=== PATIENT | male | born 1955 | race Caucasian/White ===

== ENCOUNTER → 2016-08-07 | Outpatient (CLI) | payer OTHER ==
[2016-02-06 14:02] VITALS: BP 115/69; PULSE 79
[~2016-08-07] MED LIST: ACET325T96 PO; AMOX500C3 PO; ASPI325T39 PO; CARV12.52 PO; CMP/10 PO; CRG125 PO; CYAN10002 INJ; DOXY100C76 PO; DXM/4 PO; DXM4 PO; DXY100 PO; FLV400 PO; FOLI1TAB7 PO; FOLI800T17 PO; Folic Acid PO; IPRA1AER2 INH; KPP250 PO; LCTX PO; LISI-461 PO; LSN5 PO; MAGN400T6 PO; NICO14DI5 TD; NICO14DI9 TOP; PRLSR20 PO; PROC1TAB5 PO; SIMV-151 PO; SIMV20TA2 PO; SOTA80TA PO; SPRIN/30 INH; TIOTCAP INH; ULT50 PO
[2016-08-07 13:13] VITALS: BP 105/68; PULSE 84; TEMP 37; O2SAT 95
--- NOTE | 2016-08-07 16:04 | Radiation Oncology Follow-Up ---
Radiation Oncology Follow-Up Date of Visit Aug 07, 2016. (Marleen Archuleta PA-C) Reason For Visit 6 month follow-up (Marleen Archuleta PA-C) Radiation Completion Date 01/08/16 (Marleen Archuleta PA-C) Diagnosis (1) Lung cancer Onset Date: 11/07/2015 Histology Subtype: adenocarcinoma Stage: lll Permanent Comment: DIAGNOSIS: Lung, RUL, adenocarcinoma, T3N3Mx, stage IIIB Status post combined radiation and chemotherapy. Radiation completed 01/08/2016. Received 4000 cGy. Last Edited By: Marleen Archuleta on Jan 21, 2016 13:19 (Marleen Archuleta PA-C) History of Present Illness Mr. Arreaga is a 61-year-old gentleman who presents with a six-month history of a 20 pound weight loss and hemoptysis. He eventually went to his primary care physician who ordered a a chest x-ray followed by a CT thorax which was completed on 10/08/2015. The CT thorax revealed a 8.9 cm mass in the right upper lobe that was cavitary. Additionally, a nodule in the left lower lobe is also noted as well as a nodule in the right upper lobe. In the mediastinum, there are subcarinal lymph nodes measuring 3.7 cm in the greatest dimension which included prevascular lymph nodes, precarinal lymph nodes and right hilar and mediastinal lymph nodes in general. The patient was subsequently referred to pulmonary and he was seen by Dr. Gume Peck. The patient was taken for an endobronchial ultrasound-guided biopsy and he did have biopsies of stations 4L and 4R which revealed adenocarcinoma that was EGFR mutation negative. He subsequently had a PET/CT scan on 11/14/2015 which revealed a large right upper lobe mass with FDG avidity as well as metabolically active supraclavicular and mediastinal lymph nodes. There is no other areas of significant uptake. He was seen by Dr. Rubén Mike for further workup and evaluation. Dr. Mike recommended completion of the staging workup and also had a discussion regarding the role of chemotherapy and potentially radiation therapy. The patient then had a CT of the head with and without contrast on 11/21/2015 which showed no evidence of metastatic disease. The patient is going to have a CT of the liver completed tomorrow. We are now seeing the patient in consultation discuss the role of radiation therapy. Currently, the patient is doing okay. He continues to have some exertional dyspnea. He also continues to have minimal hemoptysis. He denies any fevers, chills or night sweats. He has a very poor appetite overall. He has a general lack of energy. He denies any headaches or any focal neurologic deficits. Decision was to treat with combined radiation and chemotherapy. Radiation was completed 01/08/2016 received 4000 cGy (Marleen Archuleta PA-C) Interim History He feels that he is stable in regards to his respiratory status. He has had no problems with increasing shortness of breath. He feels his cough is unchanged. He is trying to do exercises randomly with incentive spirometry. He denies any discomfort of the chest. He has had no problems with swallowing. He's been followed closely by Dr. Mike. He has had recheck scanning. He had a PET scan 05/15/2016. This showed overall significant response to therapy with decrease in size, number, size and metabolic activity of supraclavicular and mediastinal lymph nodes as well as of the primary right upper lobe mass. No new sites of FDG avid disease. Small patchy opacity in the left upper lobe is favorable to be inflammatory. Attention on follow-up. (Marleen Archuleta PA-C) Allergies Coded Allergies: Ibuprofen (Verified Allergy, Unknown, ITCHING - BUT TAKES ASA WITHOUT PROBLEM, 12/03/15) Home Medications Scheduled Aspirin (Aspirin Ec), 325 MG PO QAM Carvedilol (Coreg *), 12.5 MG PO BID Lisinopril (Zestril), 5 MG PO QAM Simvastatin (Zocor), 20 MG PO QAM Sotalol Hcl (Sotalol Hcl), 1 TAB PO BID Tiotropium [place] (Spiriva Handihaler), 1 CAP INH QAM [Folic Acid], 400 MCG PO DAILY Scheduled PRN Prochlorperazine Maleate (Compazine), 1 TAB PO Q6 PRN for Nausea Review of Systems Gastrointestinal: Symptoms: WNL Oral: Symptoms: No Problems Respiratory: Symptoms: SOB With Exertion, Productive Cough Respiratory Comments: SOB/ Moist productive cough of thick white phlegm Sputum Character: White phlegm; Urinary: Symptoms: Nocturia, Frequency Comments: Doesn't feel he always empties bladder;Starts/stops during void; Skin: Symptoms: No Problems Other Skin Symptoms: Reports dry flaky skin at tx site (Marleen Archuleta PA-C) Physical Exam Vital Signs Date Time Temp Pulse Resp B/P Pulse Ox O2 Delivery O2 Flow Rate FiO2 08/07/16 13:13 37.0 84 20 105/68 95 Pain: Patient Pain Scale: 0 - 10 Initial Pain Intensity: 0.0 Fatigue: None General Appearance: + thin Eyes: normal inspection, EOMI ENT: normal ENT inspection, hearing grossly normal Neck: no adenopathy Respiratory/Chest: no respiratory distress, no accessory muscle use, + decreased breath sounds, + pertinent finding (transtracheal congestion) Cardiovascular: regular rate, rhythm, no gallop, no murmur Neurologic/Psychiatric: no motor/sensory deficits, alert, normal mood/affect Skin: warm/dry Lymphatic: no adenopathy (Marleen Archuleta PA-C) Additional Studies PET scan as reviewed above. (Marleen Archuleta PA-C) Assessment & Plan Plan: Patient was seen and examined by Dr. Donaldson. He'll continue her follows Dr. Mike. He is scheduled for recheck PET scan 08/20/2016. He has a recheck appointment with Dr. Mike on 08/22/2016. We asked him to return to our office in 1 year. He may call if he has any questions or concerns in the interim. (Marleen Archuleta PA-C) I agree with note created by Marleen Archuleta PA-C. I reviewed the patient's chart and information with her. I have examined and evaluated the patient. I reviewed relevant clinical information and answered the patient's and/or family' s questions. (Veeral. Donaldson MD) Total Time In Follow-Up I spent 20 minutes speaking to the patient and performing examination. I spent 15 minutes reviewing information on completing this note. (Marleen Archuleta PA-C) I spent 15 minutes examining and counseling the patient. (Veeral. Donaldson MD) Copy To Alexander Aguilera M.D.; Rubén Mike MD; Rayray Lea M.D. Problem Qualifiers (1) Lung cancer: Laterality: right Lung location: upper lobe of lung Qualified Codes: C34.11 - Malignant neoplasm of upper lobe, right bronchus or lung
== END | disposition home or self-care (01) ==
LOC: C.ONC 13:08
PROVIDERS: ATTEND Physician Assistant Medical
DX: Z08 Encounter for follow-up examination after completed treatment for malignant neoplasm (principal); Z92.3 Personal history of irradiation; Z85.118 Personal history of other malignant neoplasm of bronchus and lung

== ENCOUNTER → 2016-10-31 | Outpatient (CLI) | payer OTHER ==
[~2016-10-31] MED LIST changes: -AMOX500C3 PO; -ASPI325T39 PO; -CYAN10002 INJ; -FOLI1TAB7 PO; -TIOTCAP INH
[2016-10-31 10:07] VITALS: BP 87/57; PULSE 76; TEMP 36.7; O2SAT 95
--- NOTE | 2016-10-31 10:59 | Radiation Oncology Follow-Up ---
Radiation Oncology Follow-Up Date of Visit Oct 31, 2016. Reason For Visit One-month follow-up Radiation Completion Date finished to lung 01-08-2016 and SBRT to brain 10-04-2015 Diagnosis (1) Lung cancer Status: Chronic Onset Date: 11/07/2015 Location: brain metastasis Histology Subtype: adenocarcinoma Stage: IV Permanent Comment: DIAGNOSIS: Lung, RUL, adenocarcinoma, T3N3Mx, stage IIIB -Status post combined radiation and chemotherapy (carboplatin/alimta). -Radiation completed 01/08/2016. Received 4000 cGy. -4 cycles of adjuvant/maintenance Alimta (Dr. Mike) -PET/CT - 08/20/2016 - shows progression of disease -Restarted on Alimta -CT Head - 09/01/2016 - Right cerebellum solitary brain metastasis Status post completion of stereotactic radiation therapy 10/04/2015. He received 3000 cGy in 5 fractions Last Edited By: Marleen Archuleta on Oct 13, 2016 18:55 History of Present Illness Mr. Arreaga is a 61-year-old gentleman previously treated with chemotherapy and radiation therapy for stage IIIB nonsmall cell lung carcinoma of the right upper lobe. The patient has received 4 cycles of maintenance Alimta underneath the supervision of Dr. Rubén Mike. The patient had a PET/CT scan on 08/20/2016 which revealed interval enlargement of the left supraclavicular metastatic lymphadenopathy with increasing FDG avidity, new multiloculated left pleural effusion concerning for malignant effusion, decreased uptake in the left cerebellum concerning for potential malignancy. The patient was restarted on Alimta underneath the supervision of Dr. Rubén Mike. The patient did have a CT of the head with and without contrast on 2016 which revealed a 3 cm rim-enhancing low-density mass within the right anterolateral cerebellum with surrounding vasogenic edema consistent with metastatic disease. We have been asked to evaluate the patient for consideration of radiation therapy to the brain. In general, the patient states his only significant symptom is headaches in the left posterior head. He denies any significant focal neurologic deficits. He has no history of seizures. He has no other complaints. Interim History He denies any difficulty with headaches over this past month. He has had some generalized hair loss. No difficulty with ambulation. Occasionally feels mildly off balance. No change in vision. He's been followed closely by Dr. Mike. He is to have a bone marrow evaluation this morning. He is scheduled for CAT scans this afternoon. He had been on dexamethasone. This was tapered and completed. He is generalized pain of the neck and shoulders. He takes Tylenol twice a day. Allergies Coded Allergies: Ibuprofen (Verified Allergy, Unknown, ITCHING - BUT TAKES ASA WITHOUT PROBLEM, 12/03/15) Home Medications Scheduled Acetaminophen Tab (Tylenol), 325 MG PO BID Carvedilol (Coreg *), 12.5 MG PO BID Lisinopril (Zestril), 5 MG PO QAM Magnesium Oxide (Mag-Ox), 400 MG PO DAILY Simvastatin (Zocor), 20 MG PO QAM Sotalol Hcl (Sotalol Hcl), 1 TAB PO BID [Folic Acid], 800 MCG PO DAILY Review of Systems Gastrointestinal: Symptoms: Constipation GI Comments: has a BM every 1-2 days Oral: Symptoms: No Problems Respiratory: Symptoms: SOB At Rest, Moist Cough, SOB With Exertion, Productive Cough Sputum Character: white phlegm Other Respiratory: "it is hard to breathe when laying down " Urinary: Symptoms: Nocturia Comments: nocturia every 0.5 to 1 hr , denies pain or burning Skin: Symptoms: No Problems Additional Notes: He completed a distress management report and answered "no" to all questions other than he has concerns about insurance and money. He also is worried about his diagnosis. He has concerns about breathing, pain, and sleep. Physical Exam Vital Signs Date Time Temp Pulse Resp B/P (MAP) Pulse Ox O2 Delivery O2 Flow Rate FiO2 10/31/16 10:07 36.7 76 20 87/57 95 Pain: Pain Onset: 1 month ago Pain Duration: never goes away completely , Side: Bilateral Patient Pain Scale: 0 - 10 Initial Pain Intensity: 7.0 Pain Description: Dull, Aching Additional Comments: gets worse at times, usually stays at a 7 0-10 scale Fatigue: Moderate General Appearance: no apparent distress Eyes: normal inspection, PERRL, EOMI ENT: normal ENT inspection, hearing grossly normal Neck: no adenopathy, thyroid normal Respiratory/Chest: lungs clear, no respiratory distress, no accessory muscle use, + decreased breath sounds Cardiovascular: regular rate, rhythm, no gallop, no murmur Extremities: no pedal edema Neurologic/Psychiatric: no motor/sensory deficits, alert, normal mood/affect Skin: warm/dry Assessment & Plan Plan: We will await the results of his CAT scans to be performed this afternoon. Chemotherapy has currently been on hold due to low platelets. He' ll need a follow-up MRI of the brain in 2 months. We will schedule that and asked for specific protocol using thin axial cuts post contrast. We will see him following the recheck MRI. He may call our office if he has any questions or concerns. We'll defer any pain medication to Dr. Mike in regards to the discomfort of his neck and shoulders. Total Time In Follow-Up I spent 20 minutes speaking to the patient and perform examination. I spent 15 minutes reviewing information and completeness note. Copy To Alexander Aguilera M.D.; Rubén Mike MD; Rayray Lea M.D.
== END | disposition home or self-care (01) ==
LOC: C.ONC 09:51
PROVIDERS: ATTEND Physician Assistant Medical
DX: Z08 Encounter for follow-up examination after completed treatment for malignant neoplasm (principal); Z92.3 Personal history of irradiation; Z85.118 Personal history of other malignant neoplasm of bronchus and lung

== ENCOUNTER 2016-11-10 10:11 | Emergency (ER) | payer OTHER ==
[~2016-11-10] VITALS: Ht 168.9 cm; Wt 50.0 kg
[~2016-11-10 10:11] MED LIST changes: -CARV12.52 PO; -CMP/10 PO; -DOXY100C76 PO; -DXM/4 PO; -DXM4 PO; -DXY100 PO; -FLV400 PO; -FOLI800T17 PO; -IPRA1AER2 INH; -KPP250 PO; -LCTX PO; -LSN5 PO; -MAGN400T6 PO; -NICO14DI5 TD; -NICO14DI9 TOP; -PRLSR20 PO; -PROC1TAB5 PO; -SIMV-151 PO; -SOTA80TA PO; -SPRIN/30 INH; -ULT50 PO
[2016-11-10 10:16] VITALS: TEMP 36.7; Ht 168.9 cm; Wt 50.0 kg
[2016-11-10] MEDS ORDERED: CARV12.52 PO (10:59)
[2016-11-10] MEDS ORDERED: ONDANSETRON INJ 2 MG/ML 2 ML VIAL IV STA (11:05)
[2016-11-10] MEDS ORDERED: HYDROmorphone INJ 1 MG/ML SYR IV STA (11:05)
[2016-11-10] MEDS ORDERED: SODIUM CHLORIDE 0.9% 500ML 500 ML IV STA (11:05)
[2016-11-10] MEDS ORDERED: OPTIRAY 320 IV PRN (11:15)
--- NOTE | 2016-11-10 11:33 | EMERGENCY ROOM VISIT NOTE ---
History Report prepared by Norberto: Preethi Knox Under the Supervision of: Dr. Navi Beth M.D. First contact with patient: 10:55 Chief Complaint: SHORTNESS OF BREATH Stated Complaint: SOB,WEAKNESS,NAUSEA,BACK PAIN Nursing Triage Summary: Pt states, "I can't stand up. I can't keep my balance. I can't even get a shower. I can't get my breath when I lay down." Pt reports shoulder, head, stomach and back pain. Pt has cancer, unsure what kind. Pt states, "I don't know what kind. They haven't really explained it to me. They did 3 or 4 scans. They took some bone marrow out of my hip on Thursday. That's when this all started." History of Present Illness The patient is a 61 year old male who presents to the Emergency Room with complaints of worsening shortness of breath for the past three days. His shortness of breath is worsened with lying flat and he states that he feels unable to breathe when lying flat. He is also complaining of abdominal pain, back pain, headache, and generalized weakness. He rates his pain as a 7/10 in severity. The patient has a history of lung cancer diagnosed one year ago. He had some further testing done three days ago including a bone marrow biopsy. He states that he has been told that he is going to start chemotherapy but must first follow-up with a neurosurgeon in [place]. The patient denies any vomiting. Source of History: patient Onset: 3 days ago Position: chest (respiratory) Symptom Intensity: 7/10 Quality: other (shortness of breath) Timing: worsening Modifying Factors (Worsening): other (lying flat) Associated Symptoms: + headache, + abdominal pain, + back pain, + weakness, No vomiting Review of Systems See HPI for pertinent positives & negatives. A total of 10 systems reviewed and were otherwise negative. Past Medical & Surgical Medical Problems: (1) DVT (deep venous thrombosis) (2) Lung cancer (3) Pacemaker Family History FH: CAD (coronary artery disease) MOTHER FH: cancer FATHER (type unknown) Social History Smoking Status: Current Every Day Smoker Occupation Status: disabled Current/Historical Medications Scheduled Acetaminophen Tab (Tylenol), 325 MG PO BID Carvedilol (Coreg), 12.5 MG PO BID Folic Acid (Folic Acid), 800 MCG PO DAILY Lisinopril (Zestril), 5 MG PO QAM Magnesium Oxide (Mag-Ox), 400 MG PO DAILY Simvastatin (Zocor), 20 MG PO QAM Sotalol Hcl (Sotalol Hcl), 1 TAB PO BID Allergies Coded Allergies: Ibuprofen (Verified Allergy, Unknown, ITCHING - BUT TAKES ASA WITHOUT PROBLEM, 11/10/16) Physical Exam Vital Signs Date Time Temp Pulse Resp B/P (MAP) Pulse Ox O2 Delivery O2 Flow Rate FiO2 11/10/16 15:00 90 20 113/66 96 Room Air 11/10/16 14:32 84 16 100/64 96 Nasal Cannula 2.0 11/10/16 13:52 82 18 100/56 99 Nasal Cannula 2.0 11/10/16 13:23 82 11/10/16 12:29 93 18 119/67 99 Nasal Cannula 2.0 11/10/16 11:51 92 18 112/79 95 Nasal Cannula 2.0 11/10/16 11:43 100 Nasal Cannula 2.0 11/10/16 11:19 84 16 122/65 96 Room Air 11/10/16 10:31 88 11/10/16 10:31 96 Room Air 11/10/16 10:31 96 Room Air 11/10/16 10:19 98 Room Air 11/10/16 10:16 36.7 89 16 107/74 98 Room Air Physical Exam GENERAL: Patient is a cachetic-appearing 61 year old male. HEAD: Normocephalic atraumatic EYES: Ocular movements intact pupils equal and react to light OROPHARYNX mucous membranes are moist no exudates present no erythema or edema present NECK: Supple no nuchal rigidity CHEST: Good equal expansion. Caput medusae on chest wall. LUNGS: Clear and equal to auscultation CARDIAC: Normal S1 and S2 ABDOMEN: Soft nontender no guarding BACK: No CVA tenderness EXTREMITIES: No pain upon palpation normal muscle strength in all groups no clubbing cyanosis or edema NEURO: Patient is following commands and answering questions appropriately. Alert and oriented x3 Cranial Nerves 2-12 grossly intact Medical Decision & Procedures ER Provider Diagnostic Interpretation: Radiology results as stated below per my review and radiologist interpretation: HEAD WITHOUT CONTRAST (CT) CLINICAL HISTORY: 61 years-old Male with Pt c/o Cancer Mets. Pain, nausea and weakness with history of lung cancer. TECHNIQUE: Multiple axial CT images of the head were obtained without contrast. A dose lowering technique was utilized adhering to the principles of ALARA. CT DOSE: 1051.39 mGy.cm COMPARISON: CT head 10/31/2016 and 09/01/2016. FINDINGS: Focus of low attenuation measuring 8 mm within the subcortical white matter of the left frontal lobe is again seen correlate with vasogenic edema associated with ring enhancing mass as seen on 10/31/2016, not significantly changed. Large area of decreased attenuation of the right cerebral hemisphere is seen, 3.4 x 2.5 cm correlating with vasogenic edema associated with ring-enhancing mass seen on comparison head CT. This also is not significantly changed. Evaluation for new or enlarging metastasis is limited without the use of IV contrast. There is no acute intracranial hemorrhage, midline shift, hydrocephalus or abnormal extra-axial collections. Senescent calcifications of the basal ganglia are again seen. There is mild background central atrophy. Patchy areas of decreased attenuation within the periventricular white matter suggest background of chronic microvascular ischemic changes, not significantly changed. Calvarium is intact. Mastoid air cells and middle ear cavities are clear. Soft tissues are unremarkable. The orbits are symmetric. There are postsurgical changes of the left calvarium. IMPRESSION: 1. No acute intracranial hemorrhage, midline shift or territorial ischemia. 2. Limited evaluation for metastatic disease without the use of IV contrast. Within the limitations of the study, focal areas of vasogenic edema notably within the subcortical left frontal lobe and right cerebellar hemisphere correlating with areas of previously noted enhancing masses on study dated 10/31/2016 are not significantly changed. The above report was generated using voice recognition software. It may contain grammatical, syntax or spelling errors. Electronically signed by: Darnell Rivas M.D. 11/10/2016 12:36 PM Dictated Date/Time: 11/10/2016 12:31 PM (CHEST FOR PE) ANGIO WITH CLINICAL HISTORY: 61 years-old Male presenting with diffuse abdominal pain, shortness of breath, back pain, nausea, history of lung cancer. TECHNIQUE: Multidetector CT angiography of the chest was performed after administration of intravenous contrast. 3-D volumetric and maximum intensity projection (MIP) images were subsequently reconstructed for review. IV contrast: 93 mL of Optiray 320. A dose lowering technique was used consistent with the principles of ALARA (as low as reasonably achievable). COMPARISON: 10/08/2015. CT DOSE (mGy.cm): The estimated cumulative dose is 1051.39 inclusive of the head CT and abdomen and pelvis. FINDINGS: [employer] topogram: Left-sided implanted cardiac defibrillator noted with left pleural effusion left basilar opacity. Pulmonary vasculature: The study is adequate for assessment of the pulmonary vascular tree. No filling defect within the pulmonary arteries to suggest embolus. Main pulmonary artery not enlarged. No flattening of the interventricular septum. No intracardiac filling defect. Remaining chest: On soft tissue windows, normal thyroid and thoracic inlet. Multiple enlarged left axillary lymph nodes noted, the largest measuring 11 mm in the short axis (series 6 image 260). Few prominent mediastinal lymph nodes in the precarinal region. Hyperdensity in the subcarinal region may suggest partially calcified lymph nodes. Infiltration of the anterior mediastinal fat. Aortic atherosclerosis. Coronary artery calcification. Multichamber enlargement of the heart. Trace pericardial effusion. Moderate loculated left pleural effusion. Upper abdomen grossly normal. On lung windows, groundglass and solid consolidation with a basilar predominance in the left lung is new from prior. Focal pulmonary nodule in the left lower lobe measuring 1.8 cm (series 6 image 171). This is new from prior. Diffuse airway thickening in the left lung with likely mucoid impaction and several of the segmental left lower lobe bronchi. Peripheral reticular and solid consolidation in the lingula and to a greater extent in the anterior segment of the right upper lobe, which may represent post radiation change. In the region of prior centrally cavitating lung mass in the anterior right upper lobe, less extensive consolidation with bronchiectatic change noted lobe. However, an adjacent focal 10 mm nodule in the right upper lobe may be new from prior (series 6 image 200). Mild background emphysematous changes. Prominent apical bulla. Bronchial wall thickening within the right lung also noted. On bone windows, degenerative changes of the lower cervical and lower thoracic spine. Deformity of posterior left ribs may be postsurgical or posttraumatic. IMPRESSION: 1. Interval evolution of previously noted centrally cavitating anterior right upper lobe mass, which could be compatible with known lung cancer. Although this appears less extensive than prior exam possibly from interval radiation, evidence of an adjacent satellite nodule in the right upper lobe and additional left lower lobe nodule new from prior and concerning for metastatic disease. 2. Interval development of loculated moderate left pleural effusion, which raises concern for pleural spread of disease. 3. Diffuse airway thickening is new from prior and may represent bronchitis/bronchiolitis. Additionally, suspected mucoid impaction of several segmental bronchi in the left lower lobe. 4. Mediastinal and left axillary lymphadenopathy, which is concerning for metastatic disease. 5. Cardiomegaly. Electronically signed by: Larry Jimenez M.D. 11/10/2016 12:41 PM Dictated Date/Time: 11/10/2016 12:27 PM ABD/PELVIS IV CONTRAST ONLY CT DOSE: HISTORY: Pain Pt c/o diffuse abd pain TECHNIQUE: Multiaxial CT images of the abdomen and pelvis were performed following the use of intravenous contrast. A dose lowering technique was utilized adhering to the principles of ALARA. COMPARISON STUDY: 11/23/2015 FINDINGS: Interval development of left basilar pleural effusion. Left basilar infiltrative change versus versus compressive atelectatic change left lower lobe is present. The right lung bases clear. There is a question of potential small filling defect of a third vessel of the left lower lobe versus flow artifact. The liver demonstrates several nodular foci involving the mid to lower aspect of the right hepatic lobe. These measure to 8 mm. Possibly of hepatic metastatic disease must be considered. The seen to a lesser extent involving the upper aspect right hepatic lobe as well as medial left hepatic lobe transaxial image 24. There is interval development of the triangular low density process evident maximum dimension of 1.5 cm posterior aspect of the mid right kidney. Considerations include possibly renal infarct versus cystic lesion. There is a slight degree of perinephric infiltrative change which is similar as compared to the prior study. Cortical scarring mid aspect left kidney is unchanged. Bowel pattern is considered nonobstructive. There is atherosclerotic change abdominal and pelvic arterial vasculature. Bladder is midline. The osseous structures show degenerative change throughout. A well-defined lytic or blastic process is not appreciated. Additional note is made of potential filling defect of the right femoral vein versus flow artifact. Venous Doppler is suggested with attention to the right inguinal region IMPRESSION: 1. Interval development of potentially septated and/or loculated left basilar effusion with compressive atelectasis of components of the left lower lobe. 2. Possible third order filling defect of a left lower lobe vessel with reference made to a CT angiogram of the chest same date. 3. Unchanging retrocrural node on the right measuring 1.5 cm. 4. Potential developing hepatic metastatic change. 5. Interval development of a somewhat triangular component posterior aspect mid right kidney which potentially represents focal renal infarct versus developing lesion. 6. Nonobstructive bowel pattern. 7. Incidental note is made of potential flow artifact versus developing right inguinal deep venous thrombosis. Venous Doppler is recommended to exclude this possibility. The above report was generated using voice recognition software. It may contain grammatical, syntax or spelling errors. Electronically signed by: Nickolas Monroe M.D. 11/10/2016 12:41 PM Dictated Date/Time: 11/10/2016 12:27 PM Laboratory Results 11/10/16 11:30 Red Blood Count 2.84, Mean Corpuscular Volume 101.8, Mean Corpuscular Hemoglobin 34.2, Mean Corpuscular Hemoglobin Concent 33.6, Neutrophils (%) (Auto ) 81.3, Lymphocytes (%) (Auto) 7.5, Monocytes (%) (Auto) 9.0, Eosinophils (%) ( Auto) 0.5, Basophils (%) (Auto) 0.1, Neutrophils # (Auto) 9.97, Lymphocytes # ( Auto) 0.92, Monocytes # (Auto) 1.10, Eosinophils # (Auto) 0.06, Basophils # ( Auto) 0.01 11/10/16 11:30 Test 11/10/16 11:30 11/10/16 11:41 White Blood Count 12.26 K/uL (4.8-10.8) Red Blood Count 2.84 M/uL (4.7-6.1) Hemoglobin 9.7 g/dL (14.0-18.0) Hematocrit 28.9 % (42-52) Mean Corpuscular Volume 101.8 fL (80-100) Mean Corpuscular Hemoglobin 34.2 pg (25-34) Mean Corpuscular Hemoglobin Concent 33.6 g/dl (32-36) Platelet Count 24 K/uL (130-400) Neutrophils (%) (Auto) 81.3 % Lymphocytes (%) (Auto) 7.5 % Monocytes (%) (Auto) 9.0 % Eosinophils (%) (Auto) 0.5 % Basophils (%) (Auto) 0.1 % Neutrophils # (Auto) 9.97 K/uL (1.4-6.5) Lymphocytes # (Auto) 0.92 K/uL (1.2-3.4) Monocytes # (Auto) 1.10 K/uL (0.11-0.59) Eosinophils # (Auto) 0.06 K/uL (0-0.5) Basophils # (Auto) 0.01 K/uL (0-0.2) RDW Standard Deviation 59.4 fL (36.4-46.3) RDW Coefficient of Variation 16.5 % (11.5-14.5) Immature Granulocyte % (Auto) 1.6 % Immature Granulocyte # (Auto) 0.20 K/uL (0.00-0.02) Nucleated RBC Absolute Count (auto) 0.02 K/uL (0-0) Nucleated Red Blood Cells % 0.1 % Platelet Estimate SIGNIFIC DECREASED Polychromasia 1+ Spherocytes OCCASIONAL Est Creatinine Clear Calc Drug Dose 108.2 ml/min Estimated GFR () 135.3 Estimated GFR (Non- 116.7 BUN/Creatinine Ratio 20.8 (10-20) Calcium Level 8.5 mg/dl (8.5-10.1) Total Bilirubin 0.9 mg/dl (0.2-1) Aspartate Amino Transf (AST/SGOT) 23 U/L (15-37) Alanine Aminotransferase (ALT/SGPT) 17 U/L (12-78) Alkaline Phosphatase 64 U/L (45-117) Total Creatine Kinase 26 U/L (39-308) Creatine Kinase MB 0.8 ng/ml (0.5-3.6) Creatine Kinase MB Ratio 3.1 (0-3.0) Troponin I 0.222 ng/ml (0-0.045) Total Protein 5.2 gm/dl (6.4-8.2) Albumin 2.4 gm/dl (3.4-5.0) Globulin 2.8 gm/dl (2.5-4.0) Albumin/Globulin Ratio 0.9 (0.9-2) Bedside Hemoglobin 8.8 g/dl (14.0-18.0) Bedside Hematocrit 26 % (42-52) Bedside Sodium 136 mEq/L (135-144) Bedside Potassium 3.1 mEq/L (3.3-5.0) Bedside Chloride 96 mEq/L (101-112) Bedside Total CO2 26 mEq/l (24-31) Anion Gap 18.0 mmol/L (16-25) Bedside Blood Urea Nitrogen 10 mg/dl (7-18) Bedside Creatinine 0.6 mg/dl (0.6-1.3) Bedside Glucose (other) 90 mg/dl (70-99) Bedside Ionized Calcium (Curt) 1.17 mmol/l (1.12-1.32) Labs reviewed by ED physician. Medications Administered Medications (Trade) Dose Ordered Sig/Claude Route Start Time Stop Time Status Last Admin Dose Admin Sodium Chloride 500 ml @ 999 mls/hr Q31M STAT IV 11/10/16 11:05 11/10/16 11:35 DC 11/10/16 11:05 999 MLS/HR Hydromorphone HCl (Dilaudid Inj) 1 mg NOW STAT IV 11/10/16 11:05 11/10/16 11:09 DC 11/10/16 11:50 1 MG Ondansetron HCl (Zofran Inj) 4 mg NOW STAT IV 11/10/16 11:05 11/10/16 11:09 DC 11/10/16 11:49 4 MG ECG Indication: SOB/dyspnea Rate (beats per minute): 87 Rhythm: sinus rhythm Findings: PVC, no acute ischemic change, prolonged QT ED Course 1055: Past medical records reviewed. The patient was evaluated in room A3. A complete history and physical examination was performed. 1105: Zofran 4 mg IV, Dilaudid 1 mg IV, NSS 500 ml @ 999 mls/hr IV 1328: I spoke with Marj Aguilar PA-C of endovascular surgery. Dr. Layton is out of town for the next couple of weeks and so she recommended speaking with the hospitalist. 1329: I spoke with ALIYAH Reyes. We discussed the patients case. [facility] 1335: I reassessed the patient at this time. I discussed the results and treatment plan with the patient. I answered all pertaining questions that he had. He expressed understanding and verbalized agreement. 1442: The patient is signing out AMA. Medical Decision Etiologies such as appendicitis, diverticulitis, PUD, biliary pathology, UTI, pancreatitis, obstruction, mesenteric ischemia, aortic pathology, infections, inflammatory bowel disease, renal colic, as well as others were entertained. This is a 61-year-old male who presents emergency Department with multiple complaints. The patient is complaining of chest and abdominal pain. 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 Due to the patient's multiple complaints use sent for CAT scan of the chest as well as the abdomen. The CAT scan the abdomen is concerning for renal infarction as well as a DVT. This was confirmed on ultrasound. The patient has a low platelet count along with metastatic disease to the head and based on this I am uncomfortable starting him on anticoagulation at this point. I do feel that the patient would benefit from an IVC filter however vascular surgery is not available this week at [facility]. [facility] felt that the patient will be better served in [place] due to his multiple comorbidities. I returned to talk to the patient about all of his findings however he is adamantly refusing to be transferred and wishes to be discharged home. I reiterated that the patient was at high risk for stroke as well as PEs as well as but he is going to sign out AGAINST MEDICAL ADVICE. I strongly recommended that the patient follow-up with his oncologist Dr. Mike. I also spoke with Dr. Mike at length about the patient and recommended close follow-up as well as transferred to [place]. The patient was aware of his multiple comorbidities at the time of discharge. The patient has demonstrated no significant defect in the decision-making capacity to make choices. The encounter had a good level of communication with language the patient can easily understand. I feel trust was present and conveyed that our action/intentions were the best interest of the patient. The patient was given all relevant information and reiterated the explained risks and benefits. The patient explained the reasoning for refusing treatment clearly. The patient possesses and expresses a set of values and goals, the ability to communicate and understand, and an ability to reason and deliberate. Despite acting emphatically, attentively and with the utmost patient's the patient declined further treatment. I offered options, negotiated, and explored every reasonable choice. I must respect the patient's autonomy and that they feel that their choices are best for them despite the associated risks of leaving without completing the evaluation. The patient was informed about the findings as listed above. All questions were answered and he was pleased with the treatment. Return instructions were outlined and the patient was discharged in stable condition. Medication Reconcilliation Current Medication List: was personally reviewed by me Blood Pressure Screening Patient's blood pressure: Low blood pressure Consults Time Called: 1325 Consulting Physician: Marj Aguilar PA-C Returned Call: 1328 I spoke with Marj Aguilar PA-C of endovascular surgery. Dr. Layton is out of town for the next couple of weeks and so she recommended speaking with the hospitalist. Additional Consults: Time Called: 1329 Consulted Physician: ALIYAH Reyes Returned Call: 1329 Additional Comments: I spoke with ALIYAH Reyes. We discussed the patients case. The patient will be evaluated by the [facility] for further management. Impression Primary Impression: Metastatic cancer Additional Impressions: Right leg DVT Thrombocytopenia Renal infarct Scribe Attestation The scribe's documentation has been prepared under my direction and personally reviewed by me in its entirety. I confirm that the note above accurately reflects all work, treatment, procedures, and medical decision making performed by me. Departure Information Dispostion Against Medical Advice Referrals Rayray Lea M.D. (PCP) Rubén Mike MD Forms HOME CARE DOCUMENTATION FORM, IMPORTANT VISIT INFORMATION Patient Instructions DVT, My [facility] Additional Instructions NEED FOLLOW UP WITH DR MIKE You received narcotic or benzodiazepene medication while in the emergency room today. Do not drive, operate heavy machinery, or drink alcohol under the influence of this medication. You have been examined and treated today on an emergency basis only. This is not a substitute for, or an effort to provide, complete comprehensive medical care. It is impossible to recognize and treat all injuries or illnesses in a single emergency department visit. It is therefore important that you follow up closely with Dr Lea. Call as soon as possible for an appointment. Thank you for your time and consideration. I look forward to speaking with you again soon. Please don't hesitate to call us if you have any questions. Problem Qualifiers Additional Impressions: Right leg DVT Affected thrombotic vein of extremity: unspecified vein of extremity Chronicity: unspecified Qualified Codes: I82.401 - Acute embolism and thrombosis of unspecified deep veins of right lower extremity
[2016-11-10 11:43] VITALS: O2SAT 100
[2016-11-10 11:53] LABS: ISTAT CREATININE 0.6 mg/dl (0.6-1.3); ISTAT HEMOGLOBIN 8.8 g/dl (14.0-18.0); ISTAT IONIZED CALCIUM 1.17 mmol/l (1.12-1.32)
[2016-11-10 12:13] LABS: BUN/CREATININE RATIO 20.8 (10-20); CALCIUM 8.5 mg/dl (8.5-10.1); CREATININE 0.52 mg/dl (0.60-1.40); POTASSIUM 3.1 mmol/L (3.5-5.1)
[2016-11-10 12:20] LABS: BASO % 0.1 %; BASO ABS # 0.01 K/uL (0-0.2); COMPLETE YES; EOS % 0.5 %; HEMATOCRIT 28.9 % (42-52); IG% 1.6 %; LYMPH % 7.5 %; LYMPH ABS # 0.92 K/uL (1.2-3.4); MEAN CELL VOLUME 101.8 fL (80-100); MEAN CORPUSCULAR HEMOGLOBIN 34.2 pg (25-34); MEAN CORPUSCULAR HGB CONC 33.6 g/dl (32-36); NEUT % 81.3 %; PLATELET COUNT 24 K/uL (130-400); PLT ESTIMATE SIGNIFIC DECREASED; POLYCHROMASIA 1+; RED BLOOD COUNT 2.84 M/uL (4.7-6.1); SPHEROCYTE OCCASIONAL; WHITE BLOOD COUNT 12.26 K/uL (4.8-10.8)
[2016-11-10 12:24] LABS: ALB/GLOB RATIO 0.9 (0.9-2); CKMB/CK RATIO 3.1 (0-3.0)
--- NOTE | 2016-11-10 12:38 | DIAGNOSTIC IMAGING REPORT ---
HEAD WITHOUT CONTRAST (CT) CLINICAL HISTORY: 61 years-old Male with Pt c/o Cancer Mets. Pain, nausea and weakness with history of lung cancer. TECHNIQUE: Multiple axial CT images of the head were obtained without contrast. A dose lowering technique was utilized adhering to the principles of ALARA. CT DOSE: 1051.39 mGy.cm COMPARISON: CT head 10/31/2016 and 09/01/2016. FINDINGS: Focus of low attenuation measuring 8 mm within the subcortical white matter of the left frontal lobe is again seen correlate with vasogenic edema associated with ring enhancing mass as seen on 10/31/2016, not significantly changed. Large area of decreased attenuation of the right cerebral hemisphere is seen, 3.4 x 2.5 cm correlating with vasogenic edema associated with ring-enhancing mass seen on comparison head CT. This also is not significantly changed. Evaluation for new or enlarging metastasis is limited without the use of IV contrast. There is no acute intracranial hemorrhage, midline shift, hydrocephalus or abnormal extra-axial collections. Senescent calcifications of the basal ganglia are again seen. There is mild background central atrophy. Patchy areas of decreased attenuation within the periventricular white matter suggest background of chronic microvascular ischemic changes, not significantly changed. Calvarium is intact. Mastoid air cells and middle ear cavities are clear. Soft tissues are unremarkable. The orbits are symmetric. There are postsurgical changes of the left calvarium. IMPRESSION: 1. No acute intracranial hemorrhage, midline shift or territorial ischemia. 2. Limited evaluation for metastatic disease without the use of IV contrast. Within the limitations of the study, focal areas of vasogenic edema notably within the subcortical left frontal lobe and right cerebellar hemisphere correlating with areas of previously noted enhancing masses on study dated 10/31/2016 are not significantly changed. The above report was generated using voice recognition software. It may contain grammatical, syntax or spelling errors. Electronically signed by: Darnell Rivas M.D. 11/10/2016 12:36 PM Dictated Date/Time: 11/10/2016 12:31 PM
--- NOTE | 2016-11-10 12:42 | DIAGNOSTIC IMAGING REPORT ---
(CHEST FOR PE) ANGIO WITH CLINICAL HISTORY: 61 years-old Male presenting with diffuse abdominal pain, shortness of breath, back pain, nausea, history of lung cancer. TECHNIQUE: Multidetector CT angiography of the chest was performed after administration of intravenous contrast. 3-D volumetric and maximum intensity projection (MIP) images were subsequently reconstructed for review. IV contrast: 93 mL of Optiray 320. A dose lowering technique was used consistent with the principles of ALARA (as low as reasonably achievable). COMPARISON: 10/08/2015. CT DOSE (mGy.cm): The estimated cumulative dose is 1051.39 inclusive of the head CT and abdomen and pelvis. FINDINGS: [employer] Consult[employer] topogram: Left-sided implanted cardiac defibrillator noted with left pleural effusion left basilar opacity. Pulmonary vasculature: The study is adequate for assessment of the pulmonary vascular tree. No filling defect within the pulmonary arteries to suggest embolus. Main pulmonary artery not enlarged. No flattening of the interventricular septum. No intracardiac filling defect. Remaining chest: On soft tissue windows, normal thyroid and thoracic inlet. Multiple enlarged left axillary lymph nodes noted, the largest measuring 11 mm in the short axis (series 6 image 260). Few prominent mediastinal lymph nodes in the precarinal region. Hyperdensity in the subcarinal region may suggest partially calcified lymph nodes. Infiltration of the anterior mediastinal fat. Aortic atherosclerosis. Coronary artery calcification. Multichamber enlargement of the heart. Trace pericardial effusion. Moderate loculated left pleural effusion. Upper abdomen grossly normal. On lung windows, groundglass and solid consolidation with a basilar predominance in the left lung is new from prior. Focal pulmonary nodule in the left lower lobe measuring 1.8 cm (series 6 image 171). This is new from prior. Diffuse airway thickening in the left lung with likely mucoid impaction and several of the segmental left lower lobe bronchi. Peripheral reticular and solid consolidation in the lingula and to a greater extent in the anterior segment of the right upper lobe, which may represent post radiation change. In the region of prior centrally cavitating lung mass in the anterior right upper lobe, less extensive consolidation with bronchiectatic change noted lobe. However, an adjacent focal 10 mm nodule in the right upper lobe may be new from prior (series 6 image 200). Mild background emphysematous changes. Prominent apical bulla. Bronchial wall thickening within the right lung also noted. On bone windows, degenerative changes of the lower cervical and lower thoracic spine. Deformity of posterior left ribs may be postsurgical or posttraumatic. IMPRESSION: 1. Interval evolution of previously noted centrally cavitating anterior right upper lobe mass, which could be compatible with known lung cancer. Although this appears less extensive than prior exam possibly from interval radiation, evidence of an adjacent satellite nodule in the right upper lobe and additional left lower lobe nodule new from prior and concerning for metastatic disease. 2. Interval development of loculated moderate left pleural effusion, which raises concern for pleural spread of disease. 3. Diffuse airway thickening is new from prior and may represent bronchitis/bronchiolitis. Additionally, suspected mucoid impaction of several segmental bronchi in the left lower lobe. 4. Mediastinal and left axillary lymphadenopathy, which is concerning for metastatic disease. 5. Cardiomegaly. Electronically signed by: Larry Jimenez M.D. 11/10/2016 12:41 PM Dictated Date/Time: 11/10/2016 12:27 PM
--- NOTE | 2016-11-10 12:43 | DIAGNOSTIC IMAGING REPORT ---
ABD/PELVIS IV CONTRAST ONLY CT DOSE: HISTORY: Pain Pt c/o diffuse abd pain TECHNIQUE: Multiaxial CT images of the abdomen and pelvis were performed following the use of intravenous contrast. A dose lowering technique was utilized adhering to the principles of ALARA. COMPARISON STUDY: 11/23/2015 FINDINGS: Interval development of left basilar pleural effusion. Left basilar infiltrative change versus versus compressive atelectatic change left lower lobe is present. The right lung bases clear. There is a question of potential small filling defect of a third vessel of the left lower lobe versus flow artifact. The liver demonstrates several nodular foci involving the mid to lower aspect of the right hepatic lobe. These measure to 8 mm. Possibly of hepatic metastatic disease must be considered. The seen to a lesser extent involving the upper aspect right hepatic lobe as well as medial left hepatic lobe transaxial image 24. There is interval development of the triangular low density process evident maximum dimension of 1.5 cm posterior aspect of the mid right kidney. Considerations include possibly renal infarct versus cystic lesion. There is a slight degree of perinephric infiltrative change which is similar as compared to the prior study. Cortical scarring mid aspect left kidney is unchanged. Bowel pattern is considered nonobstructive. There is atherosclerotic change abdominal and pelvic arterial vasculature. Bladder is midline. The osseous structures show degenerative change throughout. A well-defined lytic or blastic process is not appreciated. Additional note is made of potential filling defect of the right femoral vein versus flow artifact. Venous Doppler is suggested with attention to the right inguinal region IMPRESSION: 1. Interval development of potentially septated and/or loculated left basilar effusion with compressive atelectasis of components of the left lower lobe. 2. Possible third order filling defect of a left lower lobe vessel with reference made to a CT angiogram of the chest same date. 3. Unchanging retrocrural node on the right measuring 1.5 cm. 4. Potential developing hepatic metastatic change. 5. Interval development of a somewhat triangular component posterior aspect mid right kidney which potentially represents focal renal infarct versus developing lesion. 6. Nonobstructive bowel pattern. 7. Incidental note is made of potential flow artifact versus developing right inguinal deep venous thrombosis. Venous Doppler is recommended to exclude this possibility. The above report was generated using voice recognition software. It may contain grammatical, syntax or spelling errors. Electronically signed by: Nickolas Monroe M.D. 11/10/2016 12:41 PM Dictated Date/Time: 11/10/2016 12:27 PM
--- NOTE | 2016-11-10 14:18 | DIAGNOSTIC IMAGING REPORT ---
VENOUS DOPPLER LW EXT BILAT HISTORY: Pain. Edema. Pt c/o B/l LE swelling COMPARISON STUDY: None. FINDINGS: Findings of acute deep venous thrombosis within the right leg and lower leg. This involves common femoral vein, superficial femoral vein, as well as components of the popliteal, posterior tibial, and peroneal veins. Left leg is considered negative for acute deep venous thrombosis. Venous flow is unremarkable. IMPRESSION: 1. Extensive acute deep venous thrombosis of the right thigh and lower leg. 2. No abnormality of the left leg The above report was generated using voice recognition software. It may contain grammatical, syntax or spelling errors. Electronically signed by: Nickolas Monroe M.D. 11/10/2016 2:17 PM Dictated Date/Time: 11/10/2016 2:15 PM
[2016-11-10 15:00] VITALS: BP 113/66; PULSE 90; O2SAT 96
[2016-11-10] MEDS ORDERED: FLV400 PO (22:59)
[2016-11-12] MEDS ORDERED: NICO14DI5 TD (16:12)
[2016-11-12] MEDS ORDERED: DXY100 PO (16:12)
[2016-11-12] MEDS ORDERED: LCTX PO (16:12)
[2016-11-12] MEDS ORDERED: DXM4 PO (16:12)
[2016-11-15] MEDS ORDERED: KPP250 PO (12:37)
== END 2016-11-10 15:13 | disposition left against medical advice (07) ==
LOC: C.EDB 10:13 → C.EDA 15:13
DX: C79.2 Secondary malignant neoplasm of skin (principal); I82.4Z1 Acute embolism and thrombosis of unspecified deep veins of right distal lower extremity; D69.6 Thrombocytopenia, unspecified; C34.90 Malignant neoplasm of unspecified part of unspecified bronchus or lung; N28.0 Ischemia and infarction of kidney; F17.200 Nicotine dependence, unspecified, uncomplicated; Z91.19 Patient's noncompliance with other medical treatment and regimen; Z95.0 Presence of cardiac pacemaker; Z79.899 Other long term (current) drug therapy; Z88.6 Allergy status to analgesic agent; Z82.49 Family history of ischemic heart disease and other diseases of the circulatory system; Z80.9 Family history of malignant neoplasm, unspecified

== ENCOUNTER 2016-11-10 22:21 | Inpatient (IN) | payer OTHER ==
[~2016-11-10] VITALS: Ht 167.6 cm; Wt 48.6 kg
[~2016-11-10 22:21] MED LIST changes: +CARV12.52 PO
[2016-11-10] MEDS ORDERED: FLV400 PO (22:59)
--- NOTE | 2016-11-10 23:04 | EMERGENCY ROOM VISIT NOTE ---
History Report prepared by Norberto: Kelly Fernandez Under the Supervision of: Dr. Sage Gomez D.O. First contact with patient: 22:48 Chief Complaint: REFERRED BY DOCTOR Stated Complaint: DOCTOR TOLD TO COME BACK IN-WAS HERE EARLIER TODAY History of Present Illness The patient is a 61 year old male who presents to the Emergency Room with complaints of persistent shortness of breath. He has a history of lung cancer that has metastasized to his brain and was seen here in the ED earlier today. He is not currently taking chemotherapy or radiation. He was diagnosed with a DVT in his right leg at the earlier visit and was offered a stay in the hospital , but the patient declined because he wanted to go home. He states he came back to the ED because of his back pain and neck pain. 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 A total of 10 systems reviewed and were otherwise negative. Past Medical & Surgical Medical Problems: (1) DVT (deep venous thrombosis) (2) Lung cancer (3) Pacemaker Family History FH: CAD (coronary artery disease) MOTHER FH: cancer FATHER (type unknown) Social History Smoking Status: Current Every Day Smoker Alcohol Use: none Drug Use: none Marital Status: single Housing Status: lives with family Occupation Status: disabled Current/Historical Medications Scheduled Acetaminophen Tab (Tylenol), 325 MG PO BID Carvedilol (Coreg), 12.5 MG PO BID Folic Acid (Folic Acid), 800 MCG PO DAILY Lisinopril (Zestril), 5 MG PO QAM Magnesium Oxide (Mag-Ox), 400 MG PO DAILY Simvastatin (Zocor), 20 MG PO QAM Sotalol Hcl (Sotalol Hcl), 1 TAB PO BID Allergies Coded Allergies: Ibuprofen (Verified Allergy, Unknown, ITCHING - BUT TAKES ASA WITHOUT PROBLEM, 11/10/16) Physical Exam Vital Signs Date Time Temp Pulse Resp B/P (MAP) Pulse Ox O2 Delivery O2 Flow Rate FiO2 11/11/16 00:55 86 20 90/58 95 Nasal Cannula 2.0 11/11/16 00:21 84 87/56 97 11/10/16 23:19 83 11/10/16 23:09 92 Nasal Cannula 2.0 11/10/16 23:09 86 20 100/73 95 11/10/16 23:08 89 Room Air 11/10/16 23:04 87 11/10/16 22:27 36.6 84 18 91/56 97 Room Air Physical Exam GENERAL: Patient is awake, alert and very frail appearing. EYES: The conjunctivae are clear. The pupils are round and reactive. EARS, NOSE, MOUTH AND THROAT: The nose is without any evidence of any deformity. Mucous membranes are moist tongue is midline NECK: The neck is nontender and supple. RESPIRATORY: Lung sounds are diminished throughout. Scattered rhonchi noted throughout. Mild conversational dyspnea noted. CARDIOVASCULAR: Heart sounds are tachycardic but regular, no definite murmur noted to auscultation. GASTROINTESTINAL: The abdomen is mildly distended and diffusely tender. No guarding or rigidity noted. MUSCULOSKELETAL/EXTREMITIES: There is no evidence of gross deformity full range of motion is noted in the hips and shoulders SKIN: Pedal edema bilaterally. There is no obvious evidence of any rash. There are no petechiae, pallor or cyanosis noted. NEUROLOGIC: Patient is awake alert and oriented x3 Medical Decision & Procedures Laboratory Results 11/10/16 23:00 Red Blood Count 2.72, Mean Corpuscular Volume 103.7, Mean Corpuscular Hemoglobin 36.0, Mean Corpuscular Hemoglobin Concent 34.8, Neutrophils (%) (Auto ) 80.3, Lymphocytes (%) (Auto) 5.8, Monocytes (%) (Auto) 11.1, Eosinophils (%) ( Auto) 0.5, Basophils (%) (Auto) 0.1, Neutrophils # (Auto) 9.01, Lymphocytes # ( Auto) 0.65, Monocytes # (Auto) 1.24, Eosinophils # (Auto) 0.06, Basophils # ( Auto) 0.01 11/10/16 23:00 Test 11/10/16 23:00 11/11/16 01:13 White Blood Count 11.22 K/uL (4.8-10.8) Red Blood Count 2.72 M/uL (4.7-6.1) Hemoglobin 9.8 g/dL (14.0-18.0) Hematocrit 28.2 % (42-52) Mean Corpuscular Volume 103.7 fL (80-100) Mean Corpuscular Hemoglobin 36.0 pg (25-34) Mean Corpuscular Hemoglobin Concent 34.8 g/dl (32-36) Platelet Count 30 K/uL (130-400) Neutrophils (%) (Auto) 80.3 % Lymphocytes (%) (Auto) 5.8 % Monocytes (%) (Auto) 11.1 % Eosinophils (%) (Auto) 0.5 % Basophils (%) (Auto) 0.1 % Neutrophils # (Auto) 9.01 K/uL (1.4-6.5) Lymphocytes # (Auto) 0.65 K/uL (1.2-3.4) Monocytes # (Auto) 1.24 K/uL (0.11-0.59) Eosinophils # (Auto) 0.06 K/uL (0-0.5) Basophils # (Auto) 0.01 K/uL (0-0.2) RDW Standard Deviation 61.4 fL (36.4-46.3) RDW Coefficient of Variation 16.5 % (11.5-14.5) Immature Granulocyte % (Auto) 2.2 % Immature Granulocyte # (Auto) 0.25 K/uL (0.00-0.02) Platelet Estimate DECREASED Activated Partial Thromboplast Time 26.0 SECONDS (21.0-31.0) Partial Thromboplastin Ratio 1.0 Anion Gap 5.0 mmol/L (3-11) Estimated GFR () 102.4 Estimated GFR (Non- 88.4 BUN/Creatinine Ratio 14.3 (10-20) Calcium Level 8.2 mg/dl (8.5-10.1) Magnesium Level 1.8 mg/dl (1.8-2.4) Troponin I 0.229 ng/ml (0-0.045) Chemistry Specimen Hemolysis Arterial Blood pH 7.42 (7.35-7.45) Arterial Blood Partial Pressure CO2 44 mmHg (35-46) Arterial Blood Partial Pressure O2 78 mm/Hg (80-95) Arterial Blood HCO3 28 mmol/L (19-24) Arterial Blood Oxygen Saturation % (90-95) Arterial Blood Base Excess 3.2 mEq/L (-9-1.8) Arterial Blood Gas Delivery 2L Kevin Test POS (POS) Lactic Acid Level 1.1 mmol/L (0.4-2.0) Ethyl Alcohol mg/dL < 3.0 mg/dl (0-3) Laboratory results per my review. Medications Administered Medications (Trade) Dose Ordered Sig/Claude Route Start Time Stop Time Status Last Admin Dose Admin Sodium Chloride 1,000 ml @ 250 mls/hr Q4H STAT IV 11/10/16 23:28 11/11/16 00:40 DC 11/10/16 23:28 250 MLS/HR Morphine Sulfate (MoRPHine SULFATE INJ) 4 mg Q15M PRN IV 11/10/16 23:30 8 23:29 11/10/16 23:37 4 MG Ondansetron HCl (Zofran Inj) 4 mg NOW STAT IV 11/10/16 23:28 11/10/16 23:29 DC 11/10/16 23:28 4 MG Potassium Chloride (Klor-Con M10) 40 meq STK-MED ONCE .ROUTE 11/11/16 01:40 11/11/16 01:41 DC 11/11/16 01:40 40 MEQ ED Course 2256: The patient was evaluated in room B12. A complete history and physical examination were performed. 2328: I discussed the patient's case with Dr. Sanchez, [facility] Oncology. She recommends transfer because of no vascular surgeon and the patient may require an IVC filter versus catheter directed therapy. 2328: Zofran 4 mg IV, NSS 1000 ml @ 250 mls/hr IV. 2330: Morphine Sulfate 4 mg IV. 2345: I discussed the patient's case with Dr. Barron, [facility] Hospitalist. He is agreeable to accepting the patient but states [facility] currently has no available beds. 0010: [facility] He recommends discussing the patients case with General Surgery. 0023: I discussed the patient's case with Dr. Tracy, [facility]. He does perform IVC filters and will be available to further evaluate the patient. 0032: I discussed the patient's case with Dr. Paredes [facility] Hospitalist. The patient will be further evaluated. 0045: I reevaluated the patient. He is resting comfortably. I discussed my recommendation for further evaluation and management and he verbalized complete understanding and agreement. Medical Decision Prior records reviewed and summarized above. Triage Nursing notes reviewed. Additional history obtained from the family. The patient's history was concerning for swelling and pain in the leg. Differential diagnosis: Etiologies such as DVT, musculoskeletal, infection, joint effusion, trauma, lymphedema, idiopathic, CHF, as well as others were entertained. The patient is a very unfortunate 61-year-old male who has a history of lung cancer which now appears to be widely metastatic. He presented to the emergency department today and was found to have a DVT in his right lower extremity. The patient did not wish to stay in the hospital and left. The patient return to the emergency department after talking to her primary oncologist. Initially we thought we would have to transfer the patient because of this DVT. The patient has thrombocytopenia as well as what appears to be metastatic disease in the brain. This reason he is not felt to be a good candidate for anticoagulation. I discussed his case with the on-call [facility] hospitalist. I also discussed his case with the on-call general surgeon. The patient may be a candidate for IVC filter in but he may also require further evaluation for the overall success of any treatment at this point given the patient's condition. I also discussed his case with [facility]. Initially they agreed to accept the patient in transfer but they have no beds at this time. Medication Reconcilliation Current Medication List: was personally reviewed by me Blood Pressure Screening Patient's blood pressure: Low blood pressure Blood pressure disposition: Did not require urgent referral Consults Time Called: 2324 Consulting Physician: Dr. Sanchez [facility] Returned Call: 0 I discussed the patients case with Dr. Sanchez [facility]. She recommends transfer because of no vascular surgeon and the patient may require an IVC filter versus catheter directed therapy. Additional Consults: Time Called: 234 Consulted Physician: Dr. Barron [facility] Hospitalist Returned Call: 234 Additional Comments: I discussed the patients case with Dr. Barron [facility] Hospitalist. He is agreeable to accepting the patient but states [facility] currently has no available beds. Time Called: 4 Consulted Physician: Dr. Paredes [facility] Returned Call: [phone] Additional Comments: I discussed the patients case with Dr. Paredes [facility]. He recommends discussing the patients case with general surgery. Impression Primary Impression: Right leg DVT Additional Impressions: Metastatic lung cancer (metastasis from lung to other site) Thrombocytopenia Scribe Attestation The scribe's documentation has been prepared under my direction and personally reviewed by me in its entirety. I confirm that the note above accurately reflects all work, treatment, procedures, and medical decision making performed by me. Departure Information Dispostion Being Evaluated By Hospitalist Rayray Alcantara M.D. (PCP) Patient Instructions [facility] Problem Qualifiers
[2016-11-10] MEDS ORDERED: SODIUM CHLORIDE 0.9% 1000ML 1,000 ML IV STA (23:28)
[2016-11-10] MEDS ORDERED: ONDANSETRON INJ 2 MG/ML 2 ML VIAL IV STA (23:28)
[2016-11-10] MEDS ORDERED: MoRPHine SULFATE 4 MG/ML 1 ML CARP\\VIAL IV PRN (23:30)
[2016-11-11] VITALS (12 sets, daily range): BP systolic 91–120; BP diastolic 62–74; PULSE 71–87; TEMP 36.7–37; O2SAT 90–98; BMI 17.3
[2016-11-11] MEDS ORDERED: POTASSIUM CHLORIDE 10 MEQ TABCR PO STA (00:36)
[2016-11-11 00:53] LABS: BLOOD UREA NITROGEN 13 mg/dl (7-18); BUN/CREATININE RATIO 14.3 (10-20); CALCIUM 8.2 mg/dl (8.5-10.1); CARBON DIOXIDE 31 mmol/L (21-32); CHLORIDE 100 mmol/L (98-107); CREATININE 0.94 mg/dl (0.60-1.40); GLUCOSE 131 mg/dl (70-99); MAGNESIUM 1.8 mg/dl (1.8-2.4); POTASSIUM 3.2 mmol/L (3.5-5.1); SODIUM 136 mmol/L (136-145)
[2016-11-11 01:28] LABS: BASO % 0.1 %; BASO ABS # 0.01 K/uL (0-0.2); COMPLETE YES; EOS % 0.5 %; HEMATOCRIT 28.2 % (42-52); IG% 2.2 %; LYMPH % 5.8 %; LYMPH ABS # 0.65 K/uL (1.2-3.4); MEAN CELL VOLUME 103.7 fL (80-100); MEAN CORPUSCULAR HGB CONC 34.8 g/dl (32-36); MONO % 11.1 %; NEUT % 80.3 %; PLATELET COUNT 30 K/uL (130-400); PLT ESTIMATE DECREASED; RED BLOOD COUNT 2.72 M/uL (4.7-6.1); WHITE BLOOD COUNT 11.22 K/uL (4.8-10.8)
[2016-11-11 01:29] LABS: ARTERIAL BLOOD GAS BASE EXCESS 3.2 mEq/L (-9-1.8); ARTERIAL BLOOD GAS HCO3 28 mmol/L (19-24); ARTERIAL BLOOD GAS PO2 78 mm/Hg (80-95); ARTERIAL BLOOD GAS pH 7.42 (7.35-7.45)
[2016-11-11 01:31] LABS: ALLEN TEST POS (POS); O2 ADMINISTRATION 2L
[2016-11-11] MEDS ORDERED: POTASSIUM CHLORIDE 10 MEQ TABCR ONE (01:40)
[2016-11-11] MEDS ORDERED: DEXAMETHASONE 4 MG TAB PO ONE (01:53)
[2016-11-11] MEDS ORDERED: DOXYCYCLINE HYCLATE 100 MG CAP PO ONE (01:53)
[2016-11-11] MEDS ORDERED: OXYCODONE/ACETAMINOPHEN 5-325 TAB PO PRN (02:00)
[2016-11-11] MEDS ORDERED: MoRPHine SULFATE 2 MG/ML CARP IV PRN (02:00)
[2016-11-11] MEDS ORDERED: LORAZEPAM 2 MG/ML 1 ML VIAL IV PRN (02:00)
[2016-11-11] MEDS ORDERED: ACETAMINOPHEN 325 MG TAB PO PRN (02:00)
[2016-11-11] MEDS ORDERED: LEVALBUTEROL/IPRATROPIUM NEB INH PRN (02:00)
[2016-11-11] MEDS ORDERED: LEVALBUTEROL/IPRATROPIUM NEB INH SCH (03:00)
[2016-11-11] MEDS ORDERED: LEVALBUTEROL 1.25MG/0.5ML NEB INH PRN (03:15)
[2016-11-11] MEDS ORDERED: IPRATROPIUM BROMIDE NEB SOLN 0.02% 2.5 ML VIAL INH PRN (03:15)
[2016-11-11] MEDS ORDERED: MAGNESIUM SULFATE 1GM / D5W 1 GM in PREMIXED IN D5W 100 ML IV ONE (03:30)
[2016-11-11 06:57] LABS: HEMATOCRIT 25.6 % (42-52); MEAN CELL VOLUME 100.8 fL (80-100); MEAN CORPUSCULAR HEMOGLOBIN 33.9 pg (25-34); MEAN CORPUSCULAR HGB CONC 33.6 g/dl (32-36); MEAN PLATELET VOLUME 9.9 fL (7.4-10.4); PLATELET COUNT 65 K/uL (130-400); RED BLOOD COUNT 2.54 M/uL (4.7-6.1); WHITE BLOOD COUNT 14.17 K/uL (4.8-10.8)
[2016-11-11 07:07] LABS: BASO % 0.1 %; BASO ABS # 0.01 K/uL (0-0.2); COMPLETE YES; EOS % 0.4 %; IG% 1.3 %; LYMPH % 2.3 %; LYMPH ABS # 0.33 K/uL (1.2-3.4); MONO % 5.4 %; NEUT % 90.5 %
[2016-11-11 07:13] LABS: BUN/CREATININE RATIO 16.3 (10-20); CALCIUM 8.2 mg/dl (8.5-10.1); CREATININE 0.6 mg/dl (0.60-1.40); POTASSIUM 3.6 mmol/L (3.5-5.1)
[2016-11-11] MEDS: ACETAMINOPHEN 325 MG TAB PO SCH ×2 (07:55→20:12)
[2016-11-11] MEDS: SIMVASTATIN 20 MG TAB PO SCH (07:56)
[2016-11-11] MEDS: SOTALOL HCL 80 MG TAB PO SCH ×2 (07:56→20:00)
[2016-11-11] MEDS: FoLIC ACID TAB 400 MCG TAB PO SCH (07:57)
[2016-11-11] MEDS: DEXAMETHASONE 4 MG TAB PO SCH ×2 (07:57→20:13)
[2016-11-11] MEDS: LISINOPRIL 2.5 MG TAB PO SCH (07:58)
[2016-11-11] MEDS ORDERED: CARVEDILOL 3.125 MG TAB PO SCH (08:00)
--- NOTE | 2016-11-11 08:55 | HISTORY & PHYSICAL EXAMINATION ---
DATE OF ADMISSION: 11/11/2016 PRIMARY CARE DOCTOR: Dr. Lea. CHIEF COMPLAINT: sent back by oncologist. History obtained from patient and records. HISTORY OF PRESENT ILLNESS: Medical history significant for lung cancer with bone and brain mets status post chemoradiation, chronic systolic heart failure secondary to ischemic cardiomyopathy EF of 30-35% 2014 2D echo, CAD as per records, hypertension, hyperlipidemia, hx PPM, past alcohol abuse, ongoing tobacco abuse, Chronic anemia, baseline hemoglobin 9., chronic thrombocytopenia. Recent confinement at [facility] November 2013 for displaced fracture, COPD exacerbation , pneumonia and lung mass. Patient transferred to [facility]. Last October 2015 patient found to have IIIb nonsmall cell lung cancer of right upper lobe. Subsequently underwent chemotherapy. Had a PET scan in August 2016, which showed multiloculated left malignant pleural effusion. CT of the head also showed a 3 cm ring enhancing low density mass, right cerebellum with vasogenic edema. Chemotherapy held because of low platelets. The patient underwent radiotherapy. Patient stopped Decadron prescribed by oncologist for vasogenic edema from brain tumor because it makes him swell up. New vertebral mets, rib mets, and new brain lesion noted on recent CTs from about 2 weeks ago. Patient was at oncologist's office last week for bone marrow aspirate and biopsy. The last 2 days, the patient noted increasing shortness of breath, cough symptoms. Denies aspiration. No chest pain, some leg swelling as well. Seen at the Emergency Room yesterday. CTA noted cavitating anterior right upper lobe mass compatible with lung cancer, interval development of loculated moderate left pleural effusion, bronchitis, mediastinal left axillary adenopathy and cardiomegaly, no obvious PE. CT of the abdomen and pelvis noted a third order filling defect left lower lobe vessel. LE Venous Doppler showed extensive acute DVT of the right thigh and lower leg. Patient refused admission and decided to go home. CT of the head showed no acute intracranial hemorrhage, vasogenic edema, subcortical left frontal lobe right cerebral hemisphere, no significant change. At home, the patient received a phone call from oncologist advising the patient to go back to the hospital to be admitted. MEDICAL HISTORY: As above. The patient's supervisor policy change clerks is Dr. Aguilera. SURGERIES: Pacemaker, A-port placement. HOME MEDICATIONS: Include Tylenol, carvedilol, folic acid, lisinopril, simvastatin, sotalol, mag oxide. ALLERGIES: IBUPROFEN. FAMILY HISTORY: Colon cancer, heart disease. 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 REVIEW OF SYSTEMS: As per HPI, all other ROS negative. PHYSICAL EXAMINATION: VITAL SIGNS: Blood pressure was noted to be 104/68, pulse rate 86, RR 16, temperature 36.7, sats 92 on 2 liters. GENERAL: Noted to be comfortable, no respiratory distress. SKIN: Pallor. HEENT: Pale palpebral conjunctivae, dry mucosa, some facial asymmetry. NECK: No JVD. Supple. CHEST: Expiratory wheezes. HEART: Regular rate and rhythm. ABDOMEN: Soft. EXTREMITIES: Minimal lower extremity edema. No tenderness. NEUROLOGIC: No gross focality except for some chronic facial asymmetry. LABS: Hemoglobin was noted to be 9.8, white blood cell count 11.32, platelets 30. Sodium 136, potassium 3.2, chloride 100, CO2 of 31, BUN 13, creatinine 0.9, glucose 131, troponin 0.229. ABG pH 7.42, pCO2 of 44, pO2 of 78 on 2 liters. EKG rate 85, normal sinus rhythm, LVH, PVCs, some T-wave abnormalities on the lateral leads as per my interpretation. ASSESSMENT: 1. Chronic obstructive pulmonary disease exacerbation. No sepsis. 2. lung cancer with lung and brain metastases status post chemoradiation worsening tumor burden chemotherapy currently on hold secondary to thrombocytopenia. 3. Acute DVT, possible PE. 4. Chronic systolic heart failure secondary to ischemic cardiomyopathy, EF 35% ( TTE 2013) patient is euvolemic. 5. Hx PPM 6. Chronic anemia, hemoglobin at baseline. 7. Malnutrition, low BMI. 8. Ongoing tobacco abuse 9. past EtOH abuse 10. hypokalemia PLAN: GMF. Doxycycline, nebs, RTC p.r.n. Patient counseled to resume home steroid prescription from oncologist Off Decadron twice a day Decadron b.i.d. for vasogenic edema from intracranial mets. (Will likewise work for COPD exacerbation.) IVC filter placement given contraindication to anticoagulation given patient's circumstances. ER physician already in touch with surgeon aircraft avionics technician, Dr. Tracy. Palliative care consult as per patient's oncologist recommendation. replace K Nutrition consult, low BMI, Nicotine patch. DVT prophylaxis, SCDs for now. RE thrombocytopenia Full code as per patient. He would consider a DNR after conferring with his brother, Mr. Eleazar Arreaga. Left message on Mr. Arreaga's phone to call back provider at [phone]. OMAR
[2016-11-11] MEDS: LEVALBUTEROL 1.25MG/0.5ML NEB INH SCH ×3 (09:00→19:31)
[2016-11-11] MEDS: IPRATROPIUM BROMIDE NEB SOLN 0.02% 2.5 ML VIAL INH SCH ×3 (09:00→19:31)
--- NOTE | 2016-11-11 11:47 | CONSULTATION REPORT ---
DATE OF CONSULTATION: 11/11/2016 DATE OF CONSULTATION: 11/11/2016 approximately midnight. SUMMARY: I was called by Dr. Gomez regarding Donell Arreaga who is a gentleman in the Emergency Room with metastatic lung cancer including brain mets, came in extensive DVT in the right lower extremity. Dr. Gomez called initially asked if I would put [place] filter in because the patient may be considered for Bora filter placement and since vascular coverage was not available, they were going to transfer the patient to [place]. As I found out later this morning by his note apparently they had planned to send the patient down to [facility], but there were no beds available prior to calling me. In summary when I talked to him last night the issue was that the patient may be considered for a [place] filter. His platelet count was low. Dr. Gomez felt that Dr. Paredes and the medical service would talk to the patient before considering to do anything. At this point, I would wait to see what their decision are, whether they would like for us to place a [place] filter or they would like to base comfort measures only. As of this morning, I have not heard anything definitive.
--- NOTE | 2016-11-11 12:54 | Medical Consult ---
Consultation Date of Consultation: Nov 11, 2016. Attending Physician: Rohan Higginbotham M.D. History of Present Illness 61 y/o male with metastatic lung CA (brain mets) came to ER for SOB an admitted for extensive RLE DVT and LLL PE. His platelet count was 30,000 on admission, his morning increased to 65,000 after transfusion. We were asked to see him for IVCF. Past Medical/Surgical History Medical Problems: (1) DVT (deep venous thrombosis) Status: Acute (2) Metastatic cancer Status: Acute (3) Metastatic lung cancer (metastasis from lung to other site) Status: Acute (4) Renal infarction Status: Acute (5) Right leg DVT Status: Acute (6) Thrombocytopenia Status: Acute (7) Thrombocytopenia Status: Acute Surgical: Pacemaker [place] Family History FH: CAD (coronary artery disease) MOTHER FH: cancer FATHER (type unknown) Social History Smoking Status: Current Every Day Smoker Drug Use: none Marital Status: single Housing Status: lives with family Occupation Status: disabled Allergies Coded Allergies: Ibuprofen (Verified Allergy, Unknown, ITCHING - BUT TAKES ASA WITHOUT PROBLEM, 11/10/16) Current Inpatient Medications Current Inpatient Medications Medications (Trade) Dose Ordered Sig/Claude Route Start Time Stop Time Status Last Admin Dose Admin Morphine Sulfate (MoRPHine SULFATE INJ) 4 mg Q15M PRN IV 11/10/16 23:30 11/24/16 23:29 11/10/16 23:37 4 MG Acetaminophen (Tylenol Tab) 325 mg BID PO 11/11/16 08:00 12/11/16 08:59 11/11/16 07:55 325 MG Folic Acid (Folvite Tab) 800 mcg DAILY PO 11/11/16 08:00 12/11/16 08:59 11/11/16 07:57 800 MCG Lisinopril (Zestril Tab) 2.5 mg QAM PO 11/11/16 08:00 12/11/16 08:59 11/11/16 07:58 2.5 MG Simvastatin (Zocor Tab) 20 mg QAM PO 11/11/16 08:00 12/11/16 08:59 11/11/16 07:56 20 MG Sotalol HCl (Betapace Tab) 80 mg BID PO 11/11/16 08:00 12/11/16 08:59 11/11/16 07:56 80 MG Dexamethasone (Decadron Tab) 4 mg BID PO 11/11/16 08:00 12/11/16 08:59 11/11/16 07:57 4 MG Doxycycline Hyclate (Vibramycin Cap) 100 mg BID PO 11/11/16 20:00 11/18/16 20:59 Acetaminophen (Tylenol Tab) 650 mg Q4H PRN PO 11/11/16 02:00 12/11/16 01:59 Oxycodone/ Acetaminophen (Percocet 5-325mg Tab) 1 tab Q6H PRN PO 11/11/16 02:00 11/25/16 01:59 Morphine Sulfate (MoRPHine SULFATE INJ) 2 mg Q3H PRN IV 11/11/16 02:00 11/25/16 01:59 Lorazepam (Ativan Inj) 0.5 mg Q4H PRN IV 11/11/16 02:00 12/11/16 01:59 Ipratropium [place] (Atrovent 0.02% 0.5MG/2.5ML Neb) 0.5 mg Q6R INH 11/11/16 09:00 12/11/16 08:59 Levalbuterol (Xopenex 1.25MG/ 0.5ML Neb) 1.25 mg Q6R INH 11/11/16 09:00 12/11/16 08:59 Ipratropium [place] (Atrovent 0.02% 0.5MG/2.5ML Neb) 0.5 mg Q4H PRN INH 11/11/16 03:15 12/11/16 03:14 Levalbuterol (Xopenex 1.25MG/ 0.5ML Neb) 1.25 mg Q4H PRN INH 11/11/16 03:15 12/11/16 03:14 Review of Systems Hematologic / Lymphatic: + problem reported (right calf pain) Physical Exam Date Time Temp Pulse Resp B/P (MAP) Pulse Ox O2 Delivery O2 Flow Rate FiO2 11/11/16 12:32 36.8 71 18 112/73 (86) 98 Room Air 11/11/16 08:00 Nasal Cannula 3.0 11/11/16 07:32 36.9 87 16 107/70 (82) 92 Nasal Cannula 3.0 11/11/16 05:00 37.0 84 20 99/65 91 2.0 11/11/16 04:51 36.9 87 18 106/70 Nasal Cannula 2.0 11/11/16 04:30 36.9 81 18 93/64 90 2.0 11/11/16 04:15 36.8 85 20 91/62 90 2.0 11/11/16 03:55 36.7 86 16 104/68 92 11/11/16 02:57 76 20 87/48 98 11/11/16 00:55 86 20 90/58 95 Nasal Cannula 2.0 11/11/16 00:21 84 87/56 97 11/10/16 23:19 83 11/10/16 23:09 92 Nasal Cannula 2.0 11/10/16 23:09 86 20 100/73 95 11/10/16 23:08 89 Room Air 11/10/16 23:04 87 11/10/16 22:27 36.6 84 18 91/56 97 Room Air General Appearance: no apparent distress, + cachetic Abdomen/GI: non tender, soft, + pertinent finding (groin exam benign) Laboratory Results Last 24 Hours Test 11/10/16 23:00 11/11/16 01:13 11/11/16 06:20 White Blood Count 11.22 K/uL 14.17 K/uL Red Blood Count 2.72 M/uL 2.54 M/uL Hemoglobin 9.8 g/dL 8.6 g/dL Hematocrit 28.2 % 25.6 % Mean Corpuscular Volume 103.7 fL 100.8 fL Mean Corpuscular Hemoglobin 36.0 pg 33.9 pg Mean Corpuscular Hemoglobin Concent 34.8 g/dl 33.6 g/dl Platelet Count 30 K/uL 65 K/uL Neutrophils (%) (Auto) 80.3 % 90.5 % Lymphocytes (%) (Auto) 5.8 % 2.3 % Monocytes (%) (Auto) 11.1 % 5.4 % Eosinophils (%) (Auto) 0.5 % 0.4 % Basophils (%) (Auto) 0.1 % 0.1 % Neutrophils # (Auto) 9.01 K/uL 12.82 K/uL Lymphocytes # (Auto) 0.65 K/uL 0.33 K/uL Monocytes # (Auto) 1.24 K/uL 0.76 K/uL Eosinophils # (Auto) 0.06 K/uL 0.06 K/uL Basophils # (Auto) 0.01 K/uL 0.01 K/uL RDW Standard Deviation 61.4 fL 60.7 fL RDW Coefficient of Variation 16.5 % 16.5 % Immature Granulocyte % (Auto) 2.2 % 1.3 % Immature Granulocyte # (Auto) 0.25 K/uL 0.19 K/uL Platelet Estimate DECREASED Activated Partial Thromboplast Time 26.0 SECONDS Partial Thromboplastin Ratio 1.0 Sodium Level 136 mmol/L 136 mmol/L Potassium Level 3.2 mmol/L 3.6 mmol/L Chloride Level 100 mmol/L 100 mmol/L Carbon Dioxide Level 31 mmol/L 30 mmol/L Anion Gap 5.0 mmol/L 6.0 mmol/L Blood Urea Nitrogen 13 mg/dl 10 mg/dl Creatinine 0.94 mg/dl 0.60 mg/dl Estimated GFR () 102.4 127.6 Estimated GFR (Non- 88.4 110.1 BUN/Creatinine Ratio 14.3 16.3 Random Glucose 131 mg/dl 126 mg/dl Calcium Level 8.2 mg/dl 8.2 mg/dl Magnesium Level 1.8 mg/dl Troponin I 0.229 ng/ml 0.407 ng/ml Chemistry Specimen Hemolysis Arterial Blood pH 7.42 Arterial Blood Partial Pressure CO2 44 mmHg Arterial Blood Partial Pressure O2 78 mm/Hg Arterial Blood HCO3 28 mmol/L Arterial Blood Oxygen Saturation % Arterial Blood Base Excess 3.2 mEq/L Arterial Blood Gas Delivery 2L Kevin Test POS Lactic Acid Level 1.1 mmol/L Ethyl Alcohol mg/dL < 3.0 mg/dl Mean Platelet Volume 9.9 fL Macrocytosis PRESENT Est Creatinine Clear Calc Drug Dose 90.9 ml/min Assessment & Plan extensive RLE DVT and PE with contraindication to anticoagulation He would like to continue aggressive therapy. He has been NPO an we will proceed with placement of [place] filter (right femoral) this afternoon.
[2016-11-11] MEDS ORDERED: LIDOCAINE HCL 1% 20 ML VIAL ONE (12:55)
[2016-11-11] MEDS ORDERED: CONRAY 60% 50 ML VIAL ONE (12:55)
[2016-11-11] MEDS ORDERED: HEPARIN SOD (PORCINE) 1000 UNIT/ML 10 ML VIAL ONE (12:56)
[2016-11-11] MEDS ORDERED: MIDAZOLAM HCL 1 MG/ML 2ML VIAL ONE (13:01)
[2016-11-11] MEDS ORDERED: LIDOCAINE HCL 2% 2 ML VIAL (20MG/ML) ONE (13:01)
[2016-11-11] MEDS ORDERED: PROPOFOL IV EMULSION 10 MG/ML 20 ML VIAL IV ONE (13:01)
[2016-11-11] MEDS ORDERED: FENTANYL CITRATE INJ 50 MCG/1 ML 2 ML VIAL ONE (13:01)
--- NOTE | 2016-11-11 13:02 | History & Physical Bridge Note ---
H&P Re-Evaluation Bridge Note: I have examined the patient, reviewed the History & Physical and in the interval since the performance of the History & Physical I have noted the following changes of clinical significance: No changes noted discussed situation with Dr Higginbotham and 3 family members and pt they want to proceeed with Bora alarcon [place] [id number] after pack given r ans c explaine dto pt with try using right groin , doppler noted pt has discomfort mid right thigh and distally
[2016-11-11] MEDS ORDERED: SODIUM CHLORIDE 0.9% INJ 10 ML VIAL ONE ×2 (13:03→14:21)
--- NOTE | 2016-11-11 13:48 | Medical Consult ---
Consultation Date of Consultation: Nov 11, 2016. Attending Physician: Rohan Higginbotham M.D. Reason for Consultation: "Lung cancer," newly diagnosed right LE DVT with severe thrombocytopenia History of Present Illness Mr. Arreaga is a 61 yo CM known to the [facility] Medical Oncology service. He has Stage IV NSCLC with brain metastasis. He is s/p definitive chemoRT with cisplatin/alimta x 3 cycles followed by 4 maintenance cycles of Alimta, last administered in August 2016. At that time, he had a single cerebellar metastasis for which he underwent stereotactic RT. The patient had persistent thrombocytopenia after cessation of treatment, so Dr. Mike performed a BMB on , of which all results are still pending. He had restaging scans on that revealed new enhancing nodule in the LLL, measuring 2.2 cm. There were new noncalcified pulmonary nodules in RUL, RLL and lingula. Left pleural effusion remained unchanged as well as mediastinal, left axillary and supraclavicular adenopathy. His CT of the brain revealed slightly reduced in size right cerebellar metastatic lesion, max dimension 2.5 cm, but there was new lesion in left frontal lobe, measuring 5.2 mm in maximum dimension. CT of cervical and thoracic spine revealed lytic lesions of C6 (likely pathologic fracture at this level)/C7 and T1. Current admission: He reported to [facility] yesterday for dyspnea. Further imaging revealed extensive right LE DVT. The CTA showed possible filling defct vs arterial flow. He was significantly thrombocytopenic, in 20K range. He received 1 unit PLT and PLT count now up to 60K range. Anticoagulation contraindicated with his marked thrombocytopenia, surgery was consulted and Dr. Tracy is to plce IVC filter today. Additional history obtained from the patient at bedside. He reports feeling overall stable. He reports "shallow" breathing but this is unchanged over past few months. He has cough productive of phlegm, stable. He denies chest pain. He reports a good appetite and denies nausea or bowel issues. He does have pain of his RLE. He denies dizziness, headache. He has been restarted on Decadron for vasogenic edema of brain metastatic disease. Past Medical/Surgical History Medical Problems: (1) DVT (deep venous thrombosis) Status: Acute (2) Metastatic cancer Status: Acute (3) Metastatic lung cancer (metastasis from lung to other site) Status: Acute (4) Renal infarction Status: Acute (5) Right leg DVT Status: Acute (6) Thrombocytopenia Status: Acute (7) Thrombocytopenia Status: Acute Family History FH: CAD (coronary artery disease) MOTHER FH: cancer FATHER (type unknown) Social History Smoking Status: Current Every Day Smoker Drug Use: none Marital Status: single Housing Status: lives with family Occupation Status: disabled Allergies Coded Allergies: Ibuprofen (Verified Allergy, Unknown, ITCHING - BUT TAKES ASA WITHOUT PROBLEM, 11/10/16) Current Inpatient Medications Current Inpatient Medications Medications (Trade) Dose Ordered Sig/Claude Route Start Time Stop Time Status Last Admin Dose Admin Morphine Sulfate (MoRPHine SULFATE INJ) 4 mg Q15M PRN IV 11/10/16 23:30 11/24/16 23:29 11/10/16 23:37 4 MG Acetaminophen (Tylenol Tab) 325 mg BID PO 11/11/16 08:00 12/11/16 08:59 11/11/16 07:55 325 MG Folic Acid (Folvite Tab) 800 mcg DAILY PO 11/11/16 08:00 12/11/16 08:59 11/11/16 07:57 800 MCG Lisinopril (Zestril Tab) 2.5 mg QAM PO 11/11/16 08:00 12/11/16 08:59 11/11/16 07:58 2.5 MG Simvastatin (Zocor Tab) 20 mg QAM PO 11/11/16 08:00 12/11/16 08:59 11/11/16 07:56 20 MG Sotalol HCl (Betapace Tab) 80 mg BID PO 11/11/16 08:00 12/11/16 08:59 11/11/16 07:56 80 MG Dexamethasone (Decadron Tab) 4 mg BID PO 11/11/16 08:00 12/11/16 08:59 11/11/16 07:57 4 MG Doxycycline Hyclate (Vibramycin Cap) 100 mg BID PO 11/11/16 20:00 11/18/16 20:59 Acetaminophen (Tylenol Tab) 650 mg Q4H PRN PO 11/11/16 02:00 12/11/16 01:59 Oxycodone/ Acetaminophen (Percocet 5-325mg Tab) 1 tab Q6H PRN PO 11/11/16 02:00 11/25/16 01:59 Morphine Sulfate (MoRPHine SULFATE INJ) 2 mg Q3H PRN IV 11/11/16 02:00 11/25/16 01:59 Lorazepam (Ativan Inj) 0.5 mg Q4H PRN IV 11/11/16 02:00 12/11/16 01:59 Ipratropium [place] (Atrovent 0.02% 0.5MG/2.5ML Neb) 0.5 mg Q6R INH 11/11/16 09:00 12/11/16 08:59 Levalbuterol (Xopenex 1.25MG/ 0.5ML Neb) 1.25 mg Q6R INH 11/11/16 09:00 12/11/16 08:59 Ipratropium [place] (Atrovent 0.02% 0.5MG/2.5ML Neb) 0.5 mg Q4H PRN INH 11/11/16 03:15 12/11/16 03:14 Levalbuterol (Xopenex 1.25MG/ 0.5ML Neb) 1.25 mg Q4H PRN INH 11/11/16 03:15 12/11/16 03:14 Enteral Nutritional Formula (Boost Plus Vanilla) 1 can TID PO 11/11/16 14:00 12/11/16 13:59 UNV Review of Systems Constitutional: + fatigue, No fever, No chills Respiratory: + cough, + sputum, + shortness of breath Cardiovascular: No chest pain Abdomen: No pain, No nausea, No diarrhea, No constipation, No GI bleeding Musculoskeletal: + calf pain (RLE) Genitourinary - Male: No hematuria Neurologic: No balance problems Physical Exam Date Time Temp Pulse Resp B/P (MAP) Pulse Ox O2 Delivery O2 Flow Rate FiO2 11/11/16 12:32 36.8 71 18 112/73 (86) 98 Room Air 11/11/16 08:00 Nasal Cannula 3.0 11/11/16 07:32 36.9 87 16 107/70 (82) 92 Nasal Cannula 3.0 11/11/16 05:00 37.0 84 20 99/65 91 2.0 11/11/16 04:51 36.9 87 18 106/70 Nasal Cannula 2.0 11/11/16 04:30 36.9 81 18 93/64 90 2.0 11/11/16 04:15 36.8 85 20 91/62 90 2.0 11/11/16 03:55 36.7 86 16 104/68 92 11/11/16 02:57 76 20 87/48 98 11/11/16 00:55 86 20 90/58 95 Nasal Cannula 2.0 11/11/16 00:21 84 87/56 97 11/10/16 23:19 83 11/10/16 23:09 92 Nasal Cannula 2.0 11/10/16 23:09 86 20 100/73 95 11/10/16 23:08 89 Room Air 11/10/16 23:04 87 11/10/16 22:27 36.6 84 18 91/56 97 Room Air General Appearance: no apparent distress, + cachetic ENT: hearing grossly normal Respiratory/Chest: + wheezing (throughout posterior lung up) Cardiovascular: regular rate, rhythm Abdomen/GI: normal bowel sounds, non tender, soft Extremities/Musculoskelatal: no pedal edema, + calf tenderness (RLE) Neurologic/Psych: alert, oriented x 3 Skin: warm/dry, no rash Laboratory Results 11/10/16 23:00 Red Blood Count 2.72, Mean Corpuscular Volume 103.7, Mean Corpuscular Hemoglobin 36.0, Mean Corpuscular Hemoglobin Concent 34.8, Neutrophils (%) (Auto ) 80.3, Lymphocytes (%) (Auto) 5.8, Monocytes (%) (Auto) 11.1, Eosinophils (%) ( Auto) 0.5, Basophils (%) (Auto) 0.1, Neutrophils # (Auto) 9.01, Lymphocytes # ( Auto) 0.65, Monocytes # (Auto) 1.24, Eosinophils # (Auto) 0.06, Basophils # ( Auto) 0.01 11/11/16 06:20 Red Blood Count 2.54, Mean Corpuscular Volume 100.8, Mean Corpuscular Hemoglobin 33.9, Mean Corpuscular Hemoglobin Concent 33.6, Neutrophils (%) (Auto ) 90.5, Lymphocytes (%) (Auto) 2.3, Monocytes (%) (Auto) 5.4, Eosinophils (%) ( Auto) 0.4, Basophils (%) (Auto) 0.1, Neutrophils # (Auto) 12.82, Lymphocytes # ( Auto) 0.33, Monocytes # (Auto) 0.76, Eosinophils # (Auto) 0.06, Basophils # ( Auto) 0.01, Mean Platelet Volume 9.9 11/10/16 23:00 11/11/16 06:20 Test 11/10/16 23:00 11/11/16 01:13 11/11/16 06:20 White Blood Count 11.22 K/uL (4.8-10.8) 14.17 K/uL (4.8-10.8) Red Blood Count 2.72 M/uL (4.7-6.1) 2.54 M/uL (4.7-6.1) Hemoglobin 9.8 g/dL (14.0-18.0) 8.6 g/dL (14.0-18.0) Hematocrit 28.2 % (42-52) 25.6 % (42-52) Mean Corpuscular Volume 103.7 fL (80-100) 100.8 fL (80-100) Mean Corpuscular Hemoglobin 36.0 pg (25-34) 33.9 pg (25-34) Mean Corpuscular Hemoglobin Concent 34.8 g/dl (32-36) 33.6 g/dl (32-36) Platelet Count 30 K/uL (130-400) 65 K/uL (130-400) Neutrophils (%) (Auto) 80.3 % 90.5 % Lymphocytes (%) (Auto) 5.8 % 2.3 % Monocytes (%) (Auto) 11.1 % 5.4 % Eosinophils (%) (Auto) 0.5 % 0.4 % Basophils (%) (Auto) 0.1 % 0.1 % Neutrophils # (Auto) 9.01 K/uL (1.4-6.5) 12.82 K/uL (1.4-6.5) Lymphocytes # (Auto) 0.65 K/uL (1.2-3.4) 0.33 K/uL (1.2-3.4) Monocytes # (Auto) 1.24 K/uL (0.11-0.59) 0.76 K/uL (0.11-0.59) Eosinophils # (Auto) 0.06 K/uL (0-0.5) 0.06 K/uL (0-0.5) Basophils # (Auto) 0.01 K/uL (0-0.2) 0.01 K/uL (0-0.2) RDW Standard Deviation 61.4 fL (36.4-46.3) 60.7 fL (36.4-46.3) RDW Coefficient of Variation 16.5 % (11.5-14.5) 16.5 % (11.5-14.5) Immature Granulocyte % (Auto) 2.2 % 1.3 % Immature Granulocyte # (Auto) 0.25 K/uL (0.00-0.02) 0.19 K/uL (0.00-0.02) Platelet Estimate DECREASED Activated Partial Thromboplast Time 26.0 SECONDS (21.0-31.0) Partial Thromboplastin Ratio 1.0 Anion Gap 5.0 mmol/L (3-11) 6.0 mmol/L (3-11) Estimated GFR () 102.4 127.6 Estimated GFR (Non- 88.4 110.1 BUN/Creatinine Ratio 14.3 (10-20) 16.3 (10-20) Calcium Level 8.2 mg/dl (8.5-10.1) 8.2 mg/dl (8.5-10.1) Magnesium Level 1.8 mg/dl (1.8-2.4) Troponin I 0.229 ng/ml (0-0.045) 0.407 ng/ml (0-0.045) Chemistry Specimen Hemolysis Arterial Blood pH 7.42 (7.35-7.45) Arterial Blood Partial Pressure CO2 44 mmHg (35-46) Arterial Blood Partial Pressure O2 78 mm/Hg (80-95) Arterial Blood HCO3 28 mmol/L (19-24) Arterial Blood Oxygen Saturation % (90-95) Arterial Blood Base Excess 3.2 mEq/L (-9-1.8) Arterial Blood Gas Delivery 2L Kevin Test POS (POS) Lactic Acid Level 1.1 mmol/L (0.4-2.0) Ethyl Alcohol mg/dL < 3.0 mg/dl (0-3) Mean Platelet Volume 9.9 fL (7.4-10.4) Macrocytosis PRESENT Est Creatinine Clear Calc Drug Dose 90.9 ml/min Venous Doppler of bilateral lower extremities from 11/10/2016: 1. Extensive acute deep venous thrombosis of the right thigh and lower leg. 2. No abnormality of the left leg CT of the abdomen/pelvis from 11/10/2016: 1. Interval development of potentially septated and/or loculated left basilar effusion with compressive atelectasis of components of the left lower lobe. 2. Possible third order filling defect of a left lower lobe vessel with reference made to a CT angiogram of the chest same date. 3. Unchanging retrocrural node on the right measuring 1.5 cm. 4. Potential developing hepatic metastatic change. 5. Interval development of a somewhat triangular component posterior aspect mid right kidney which potentially represents focal renal infarct versus developing lesion. 6. Nonobstructive bowel pattern. 7. Incidental note is made of potential flow artifact versus developing right inguinal deep venous thrombosis. Venous Doppler is recommended to exclude this possibility. CTA from 11/10/16: 1. Interval evolution of previously noted centrally cavitating anterior right upper lobe mass, which could be compatible with known lung cancer. Although this appears less extensive than prior exam possibly from interval radiation, evidence of an adjacent satellite nodule in the right upper lobe and additional left lower lobe nodule new from prior and concerning for metastatic disease. 2. Interval development of loculated moderate left pleural effusion, which raises concern for pleural spread of disease. 3. Diffuse airway thickening is new from prior and may represent bronchitis/bronchiolitis. Additionally, suspected mucoid impaction of several segmental bronchi in the left lower lobe. 4. Mediastinal and left axillary lymphadenopathy, which is concerning for metastatic disease. 5. Cardiomegaly. CT of the head from 11/10/16: 1. No acute intracranial hemorrhage, midline shift or territorial ischemia. 2. Limited evaluation for metastatic disease without the use of IV contrast. Within the limitations of the study, focal areas of vasogenic edema notably within the subcortical left frontal lobe and right cerebellar hemisphere correlating with areas of previously noted enhancing masses on study dated 10/31/2016 are not significantly changed. Assessment & Plan 1. Stage IV NSCLC with intrathoracic and brain metastases, possibly evolving metastasis to the liver by imaging during this hospitalization * Diagnosis and treatment course as detailed above * Patient has been advised to pursue a palliative approach to further care * Patient is agreeable to palliative consult- can be placed by primary team * Currently restarted on Decadron 4 mg BID for vasogenic edema related to 2 areas of brain metastatic disease 2. Extensive RLE DVT, possible filling defect of third level vessel to LLL * Patient has contraindication to anticoagulation currently with marked thrombocytopenia and intracranial metastases * Patient to undergo IVC filter placement today 3. Thrombocytopenia, typically 30-60K * Uncertain in etiology * BMB from 11/07/16 pending * S/p 1 unit PLT today and PLT up to 60K, can proceed with filter per surgery 4. Possible bronchitis/bronchiolitis * Management per hospitalist team * Patient on doxycycline currently 100 mg BID Thanks for the consult. Dr. Mike is attending medical oncologist. Attending note Patient seen and examined and I discussed with Kitty Dai PA-C and Dr Higginbotham 61 year old male with Metastatic lung adenocarcinoma with mets to brain, bone and possibly developing liver mets on CT scan, persistent thrombocytopenia. Bone marrow aspirate and biopsy results are pending. Patient has poor functional status at this time ECOG PS 3. Patient states that he had generalized pain yesterday -headache neck pain and upper back pain abdominal pain. He was found to have extensive RLE DVT. Due to his thrombocytopenia and brain met, with a new untreated lesion, he is not a candidate for anticoagulation. The patient had signed out AMA and I called and spoke to his brother and the patient called me back and agreed to go to back to hospital and be admitted for transfusion of platelet and IVC filter placement. He states that he slept most of the day on Thursday and Thursday. He has generalized weakness and fatigue. He admits that functional status has been gradually worsening. Since he completed sterotactic brain RT, chemo has been on hold due to his thrombocytopenia, and restaging CT scans showed progression of disease. He denies any bleeding but he has easy bruising. He states that headache has resolved now since resuming the dexamethasone. He has neck pain - states now mild 2/10. He feels the tramadol 25mg as needed controls his pain adequately at home and wants to resume that. Gen: chronically ill appearing, thin male in NAD HEENT: Anicteric, moist buccal mucosa Lungs: decreased BS at left base CV: S1 S2 RRR +ICD Abd:+BS soft NT/ND Ext: right groin dressing c/d/i, mild RLE edema Neuro: alert and oriented x3 grossly nonfocal Labs: reviewed CT head reviewed CT chest reviewed CT abd reviewed venous doppler reviewed Imp: 61 year old male with stage IV NSCLC with progression of disease, persistent thrombocytopenia, and poor performance status admitted for extensive RLE DVT s/p IVC filter due to contraindication to anticoagulation with his thrombocytopenia and new brain met untreated, and he has a previously treated brain met. I discussed with the patient regarding his CT scan results with him and the overall poor half-way prognosis of his lung cancer. ECOG PS 3 He has progressive functional decline as well and persistent thrombocytopenia precludes chemotherapy treatment at this time. If the disease takes the usual course prognosis is in weeks to months. I recommend palliative care with option of home hospice since he has progression and further functional decline. He is not interested in hospice at this time but states that he is interested in the supportive care with symptom control. We discussed code status - he remains full code at this time He states that he will discuss with his brother. I discussed with him regarding assigning a power of attorney recruiter and he said he will discuss with his brother and consider that. Patient verbalized understanding of his poor prognosis, but said he would like to hold off on hospice referral at this time. He wants to follow up with radiation to finish his radiation planning and treatment and that is reasonable for palliative RT for his brain met. DVT: s/p IVC filter thrombocytopenia: improved after 1 unit platelet transfusion Bone nad brain mets: Continue pain control with tramadol, vasogenic edema: dexamethasone resumed, f/u with Rad Onc Cervical spine mets with probable pathologic fracture: recommend spine surgery consult Consider home care consult since he refuses hospice at this time F/U in the office upon discharge Thank you for consult
--- NOTE | 2016-11-11 14:19 | [facility] Operative Report ---
Operative Report Operative Date Nov 11, 2016. Pre-Operative Diagnosis extensive RLE DVT and PE with contraindication to anticoagulation Post-Operative Diagnosis extensive RLE DVT and PE with contraindication to anticoagulation Procedure(s) Performed Right Femoral Bora Filter Insertion, venogram Surgeon Dr. Christopher Tracy Truck Assembler Surgeon(s) none Estimated Blood Loss 5ml Findings as preop Specimens none per surgeon Anesthesia 1%xyl(3cc) and iv sedation Indications dvt with contraindication to anticoagulation Description of Procedure op note dictated confirmation number [id number] I attest to the content of the Intraoperative Record and any orders documented therein. Any exceptions are noted below.
[2016-11-11] MEDS ORDERED: CEFAZOLIN SOD 1 GM VIAL ONE (14:21)
--- NOTE | 2016-11-11 14:29 | Palliative Care Consultation ---
Consultation Date of Consultation: Nov 11, 2016. Requesting Physician: Dr. Paredes Attending Physician: Dr. Higginbotham Reason for Consultation: Goals of care History of Present Illness This 61 year old male patient presented to the ED last night with c/o SOB. Patient is a poor historian, so much of the story was taken from record. Apparently the patient was diagnosed with non-small cell lung cancer, stage IIIB , of RUL in October 2015. He underwent chemo and radiation, completed 01/08/16. On , PET/CT scan showed progression of disease and new loculated left pleural effusion, suspicious for malignant pleural effusion. Systemic therapy with Alimta was restarted at that time. CT head done on 09/01/16 which showed solitary right cerebellar mass, consistent with mets, and vasogenic edema. Patient then underwent radiation which was completed 10/03/16. Chemo has since been put on hold for low platelet count. A couple weeks ago, patient started feeling run-down, weak, and tired. His SOB was increasing (he does wear oxygen at home). He presented to the ED yesterday, he had a CT of abd/pelvis which showed loculated left basilar pleural effusion, right retrocrural node measuring 1.5cm, potentially developing hepatic metastatic changes, right posterior kidney with focal renal infarct vs. developing lesion, and possible right inguinal DVT. Venous dopplers then performed which confirmed DVT. However , anticoagulation could not be started due to platelet count of 24. Patient refused admission and went home. He returned shortly after and was willing to be admitted. His plt count was then 30 and he received a unit of platelets, it came up to 65. There was question in the ED of transfer to [facility] to see a vascular surgeon, but Dr. Tracy said he could place a filter if that was the patient's wish. Patient was admitted here to the fourth floor. Palliative care consulted. I met with the patient in room 408. Patient is awake, alert and oriented. He has no c/o pain at this time, does get MOREJON. Reports that he still has a good appetite. When he does have pain it is in his left shoulder, neck, and back from his bony mets- he takes Tylenol and tramadol 25mg BID for the pain and it works well. Sometimes patient gets dizzy and his legs "feel like jello," when he stands up too quickly but it goes away quickly. He has never passed out. He is still independent with his care at home, lives with his brother who is very involved in the patient's care. Patient confirmed that in the last two weeks he was mores SOB and feeling poorly. Still had a good appetite. I asked about his condition and the cancer. Patient said, "I know very little. I know that what I got isn't curable and it's pretty bad." He knew that he had mets to the brain and that he now has blood clots in his leg. Patient is wondering what the plan is for the IVC filter as he would like to have it placed. As far as the cancer, patient would like to speak with his oncologist about his cancer to know if there is any further treatment he could be offered. He stated, "Even if it keeps me around for another couple months, I'd want to have it." Patient also said that if the doctor didn't think further chemo would benefit him much and/ or have a significant risk for side effects, that he would have to talk it over with his brother. We discussed code status and end-stage medical decisions, patient stated he's never thought about these things and again would want to talk it over with his brother. For now, patient wants to remain full code and pursue whatever further treatment is offered to him. Past Medical/Surgical History Medical History: "Lung cancer Status: Chronic Onset Date: 11/07/2015 Location: brain metastasis Histology Subtype: adenocarcinoma Stage: IV Permanent Comment: DIAGNOSIS: Lung, RUL, adenocarcinoma, T3N3Mx, stage IIIB -Status post combined radiation and chemotherapy (carboplatin/alimta). -Radiation completed 01/08/2016. Received 4000 cGy. -4 cycles of adjuvant/maintenance Alimta (Dr. Mike) -PET/CT - 08/20/2016 - shows progression of disease -Restarted on Alimta -CT Head - 09/01/2016 - Right cerebellum solitary brain metastasis Status post completion of stereotactic radiation therapy 10/04/2015. He received 3000 cGy in 5 fractions" - taken from Marleen Sewell PA-C, note chronic systolic heart failure secondary to ischemic cardiomyopathy EF of 30-35% CAD hypertension hyperlipidemia sick sinus syndrome status post pacemaker/ICD placement past alcohol abuse ongoing tobacco abuse chronic thrombocytopenia Social History Smoking Status: Current Every Day Smoker History of Alcohol Use: No Drug Use: none Marital Status: single Housing Status: lives with family Occupation Status: disabled Review of Systems Constitutional: + weakness, + fatigue, No weight loss ENT: No trouble swallowing Respiratory: + cough, + dyspnea on exertion, No sputum, No dyspnea at rest Cardiac: No chest pain, No edema Abdomen: No pain, No nausea, No vomiting Musculoskeletal: + problem reported (back, shoulder, and neck pain) Neurologic: No balance problems Psychiatric: + problem reported (feels down able ), No anxiety Allergies Coded Allergies: Ibuprofen (Verified Allergy, Unknown, ITCHING - BUT TAKES ASA WITHOUT PROBLEM, 11/10/16) Medications Current Inpatient Medications Medications (Trade) Dose Ordered Sig/Claude Route Start Time Stop Time Status Last Admin Dose Admin Morphine Sulfate (MoRPHine SULFATE INJ) 4 mg Q15M PRN IV 11/10/16 23:30 11/24/16 23:29 11/10/16 23:37 4 MG Acetaminophen (Tylenol Tab) 325 mg BID PO 11/11/16 08:00 12/11/16 08:59 11/11/16 07:55 325 MG Folic Acid (Folvite Tab) 800 mcg DAILY PO 11/11/16 08:00 12/11/16 08:59 11/11/16 07:57 800 MCG Lisinopril (Zestril Tab) 2.5 mg QAM PO 11/11/16 08:00 12/11/16 08:59 11/11/16 07:58 2.5 MG Simvastatin (Zocor Tab) 20 mg QAM PO 11/11/16 08:00 12/11/16 08:59 11/11/16 07:56 20 MG Sotalol HCl (Betapace Tab) 80 mg BID PO 11/11/16 08:00 12/11/16 08:59 11/11/16 07:56 80 MG Dexamethasone (Decadron Tab) 4 mg BID PO 11/11/16 08:00 12/11/16 08:59 11/11/16 07:57 4 MG Doxycycline Hyclate (Vibramycin Cap) 100 mg BID PO 11/11/16 20:00 11/18/16 20:59 Acetaminophen (Tylenol Tab) 650 mg Q4H PRN PO 11/11/16 02:00 12/11/16 01:59 Oxycodone/ Acetaminophen (Percocet 5-325mg Tab) 1 tab Q6H PRN PO 11/11/16 02:00 11/25/16 01:59 Morphine Sulfate (MoRPHine SULFATE INJ) 2 mg Q3H PRN IV 11/11/16 02:00 11/25/16 01:59 Lorazepam (Ativan Inj) 0.5 mg Q4H PRN IV 11/11/16 02:00 12/11/16 01:59 Ipratropium Douglas (Atrovent 0.02% 0.5MG/2.5ML Neb) 0.5 mg Q6R INH 11/11/16 09:00 12/11/16 08:59 Levalbuterol (Xopenex 1.25MG/ 0.5ML Neb) 1.25 mg Q6R INH 11/11/16 09:00 12/11/16 08:59 Ipratropium Douglas (Atrovent 0.02% 0.5MG/2.5ML Neb) 0.5 mg Q4H PRN INH 11/11/16 03:15 12/11/16 03:14 Levalbuterol (Xopenex 1.25MG/ 0.5ML Neb) 1.25 mg Q4H PRN INH 11/11/16 03:15 12/11/16 03:14 Physical Exam Date Time Temp Pulse Resp B/P (MAP) Pulse Ox O2 Delivery O2 Flow Rate FiO2 11/11/16 08:00 Nasal Cannula 3.0 11/11/16 07:32 36.9 87 16 107/70 (82) 92 Nasal Cannula 3.0 11/11/16 05:00 37.0 84 20 99/65 91 2.0 11/11/16 04:51 36.9 87 18 106/70 Nasal Cannula 2.0 11/11/16 04:30 36.9 81 18 93/64 90 2.0 11/11/16 04:15 36.8 85 20 91/62 90 2.0 11/11/16 03:55 36.7 86 16 104/68 92 11/11/16 02:57 76 20 87/48 98 11/11/16 00:55 86 20 90/58 95 Nasal Cannula 2.0 11/11/16 00:21 84 87/56 97 11/10/16 23:19 83 11/10/16 23:09 92 Nasal Cannula 2.0 11/10/16 23:09 86 20 100/73 95 11/10/16 23:08 89 Room Air 11/10/16 23:04 87 11/10/16 22:27 36.6 84 18 91/56 97 Room Air General Appearance: no apparent distress, + thin ENT: + pertinent finding (face is flushed with many spider telangiectasias) Neck: supple, no JVD Respiratory: no respiratory distress, no accessory muscle use, + decreased breath sounds (LLL), + crackles (RLL) Cardiovascular: regular rate, rhythm, no edema, + normal peripheral pulses Abdomen: normal bowel sounds, non tender, soft Neurologic/Psychiatric: alert, normal mood/affect (somewhat flat), oriented x 3 Laboratory Results Last 24 Hours Test 11/10/16 23:00 11/11/16 01:13 11/11/16 06:20 White Blood Count 11.22 K/uL 14.17 K/uL Red Blood Count 2.72 M/uL 2.54 M/uL Hemoglobin 9.8 g/dL 8.6 g/dL Hematocrit 28.2 % 25.6 % Mean Corpuscular Volume 103.7 fL 100.8 fL Mean Corpuscular Hemoglobin 36.0 pg 33.9 pg Mean Corpuscular Hemoglobin Concent 34.8 g/dl 33.6 g/dl Platelet Count 30 K/uL 65 K/uL Neutrophils (%) (Auto) 80.3 % 90.5 % Lymphocytes (%) (Auto) 5.8 % 2.3 % Monocytes (%) (Auto) 11.1 % 5.4 % Eosinophils (%) (Auto) 0.5 % 0.4 % Basophils (%) (Auto) 0.1 % 0.1 % Neutrophils # (Auto) 9.01 K/uL 12.82 K/uL Lymphocytes # (Auto) 0.65 K/uL 0.33 K/uL Monocytes # (Auto) 1.24 K/uL 0.76 K/uL Eosinophils # (Auto) 0.06 K/uL 0.06 K/uL Basophils # (Auto) 0.01 K/uL 0.01 K/uL RDW Standard Deviation 61.4 fL 60.7 fL RDW Coefficient of Variation 16.5 % 16.5 % Immature Granulocyte % (Auto) 2.2 % 1.3 % Immature Granulocyte # (Auto) 0.25 K/uL 0.19 K/uL Platelet Estimate DECREASED Activated Partial Thromboplast Time 26.0 SECONDS Partial Thromboplastin Ratio 1.0 Sodium Level 136 mmol/L 136 mmol/L Potassium Level 3.2 mmol/L 3.6 mmol/L Chloride Level 100 mmol/L 100 mmol/L Carbon Dioxide Level 31 mmol/L 30 mmol/L Anion Gap 5.0 mmol/L 6.0 mmol/L Blood Urea Nitrogen 13 mg/dl 10 mg/dl Creatinine 0.94 mg/dl 0.60 mg/dl Estimated GFR () 102.4 127.6 Estimated GFR (Non- 88.4 110.1 BUN/Creatinine Ratio 14.3 16.3 Random Glucose 131 mg/dl 126 mg/dl Calcium Level 8.2 mg/dl 8.2 mg/dl Magnesium Level 1.8 mg/dl Troponin I 0.229 ng/ml 0.407 ng/ml Chemistry Specimen Hemolysis Arterial Blood pH 7.42 Arterial Blood Partial Pressure CO2 44 mmHg Arterial Blood Partial Pressure O2 78 mm/Hg Arterial Blood HCO3 28 mmol/L Arterial Blood Oxygen Saturation % Arterial Blood Base Excess 3.2 mEq/L Arterial Blood Gas Delivery 2L Kevin Test POS Lactic Acid Level 1.1 mmol/L Ethyl Alcohol mg/dL < 3.0 mg/dl Mean Platelet Volume 9.9 fL Macrocytosis PRESENT Est Creatinine Clear Calc Drug Dose 90.9 ml/min Assessment & Plan Palliative Performance Scale: 60 % Problem list: SOB/MOREJON Weakness DVT, RLE- ?IVC filter Non-small cell lung cancer, mets to spine, shoulder, and brain Left loculated pleural effusion Thrombocytopenia Goals of care (Z51.5) Palliative care recommendations: -Per patient, will remain a level one full code at this time until he can talk it over with his brother. -Heme/onc is consulted. Patient wants to know if there is any further treatment to be offered at this point. He would want to undergo further chemo or radiation if it's indicated. -Defer to heme/onc and primary medical to determine if rad/onc consult is needed. -Dr. Tracy following if patient does want IVC filter placed. Dr. Higginbotham is planning to talk with patient and his brother, Edilberto, when he arrives. -Patient's goal is to get back home, to "keep fighting" for as long as he can. Further goals of care can be determined during this hospital stay. -Continue Tylenol PRN -Would start home med tramadol 25mg PO BID PRN as this works well for patient. Percocet only if absolutely needed. Thank you kindly for this consult. I will continue to follow.
[2016-11-11] MEDS ORDERED: ONDANSETRON INJ 2 MG/ML 2 ML VIAL IV PRN (14:30)
[2016-11-11] MEDS ORDERED: EpHEDrine SULFATE INJ 50 MG/ML AMP IV PRN (14:30)
[2016-11-11] MEDS ORDERED: PHENYLEPHRINE 100MCG/ML 5ML SYR IV PRN (14:30)
[2016-11-11] MEDS ORDERED: FENTANYL CITRATE INJ 50 MCG/1 ML 2 ML VIAL IV PRN (14:30)
[2016-11-11] MEDS ORDERED: HYDROmorphone INJ 2 MG/ML SYR/VIAL IV PRN (14:30)
[2016-11-11] MEDS ORDERED: LABETALOL HCL IV 5 MG/ML 20ML IV PRN (14:30)
[2016-11-11] MEDS ORDERED: ATROPINE SULFATE 0.1 MG/ML 5ML SYR IV PRN (14:30)
[2016-11-11] MEDS ORDERED: FLUMAZENIL 0.1 MG/1 ML 10 ML VIAL IV PRN (14:30)
[2016-11-11] MEDS ORDERED: MEPERIDINE HCL 25 MG/ML CARP IV PRN (14:30)
[2016-11-11] MEDS ORDERED: NALOXONE HCL 0.4 MG/1 ML VIAL/CARP IV PRN (14:30)
--- NOTE | 2016-11-11 14:31 | Anesthesiology Progress Note ---
Anesthesia Post Op Note Date & Time Nov 11, 2016 at 14:31 Vital Signs Pain Intensity: 0 Vital Signs Past 12 Hours Date Time Temp Pulse Resp B/P (MAP) Pulse Ox O2 Delivery O2 Flow Rate FiO2 11/11/16 14:20 76 19 112/67 93 Nasal Cannula 4 11/11/16 14:12 36.6 78 14 105/64 91 Nasal Cannula 6 11/11/16 13:05 36.7 77 20 108/69 (82) 97 Nasal Cannula 4 11/11/16 12:32 36.8 71 18 112/73 (86) 98 Room Air 11/11/16 08:00 Nasal Cannula 3.0 11/11/16 07:32 36.9 87 16 107/70 (82) 92 Nasal Cannula 3.0 11/11/16 05:00 37.0 84 20 99/65 91 2.0 11/11/16 04:51 36.9 87 18 106/70 Nasal Cannula 2.0 11/11/16 04:30 36.9 81 18 93/64 90 2.0 11/11/16 04:15 36.8 85 20 91/62 90 2.0 11/11/16 03:55 36.7 86 16 104/68 92 11/11/16 02:57 76 20 87/48 98 Notes Mental Status: alert / awake / arousable, participated in evaluation Pt Amnestic to Procedure: Yes Nausea / Vomiting: adequately controlled Pain: adequately controlled Airway Patency, RR, SpO2: stable & adequate BP & HR: stable & adequate Hydration State: stable & adequate Anesthetic Complications: no major complications apparent
--- NOTE | 2016-11-11 14:59 | DIAGNOSTIC IMAGING REPORT ---
KUB CLINICAL HISTORY: IVC filter placement. FINDINGS: An AP, portable, supine abdominal radiograph is correlated with abdominal CT dated 11/10/2016. An IVC filter projects over the upper abdomen just the right of midline. There is a nonobstructed abdominal bowel gas pattern. Mild to moderate colonic fecal retention is observed. Excreted IV contrast is present within the renal pelvis and ureters. There is IV contrast present within the partially visualized bladder. The skeletal structures are osteopenic. Lumbosacral spondylosis is observed. The heart is enlarged and pacemaker leads are identified. Consolidation and pleural effusion is seen at the left lung base. IMPRESSION: 1. An infrarenal IVC filter is in place and new from previous. 2. Nonobstructed bowel gas pattern. 3. Left basilar consolidation and pleural effusion is again noted. Electronically signed by: Jose A Hall M.D. 11/11/2016 2:57 PM Dictated Date/Time: 11/11/2016 2:55 PM
--- NOTE | 2016-11-11 15:03 | OPERATIVE REPORT ---
DATE OF OPERATION: 11/11/2016 PREOPERATIVE DIAGNOSIS: Deep venous thrombosis right lower extremity with contraindication to anticoagulation. POSTOPERATIVE DIAGNOSIS: Same. PROCEDURE: Right [place] filter placement through the right groin. SURGEON: Dr. Tracy. OPERATION AND FINDINGS: SUMMARY: The patient's right groin and lower abdomen was prepped with Betadine scrubbing solution and properly draped. Systemic antibiotics were given. We placed a hemostat level of the umbilicus to orient the axis through the x-ray. At this point, 1% Xylocaine without epinephrine was used to infiltrate medial to the right femoral artery where we accessed this with the vein without any difficulty. Placed the guidewire which is a shorter wire fluoroscopically in the inferior vena cava. At this point we then progressively dilated the tract, we were able to place the long guidewire with the filter all the way above the renal veins then placed the introductory system of the [place] filter in position just about the level of L2. At this point, we withdrew the guidewire and the introducer and placed the filter itself at that level. Prior to firing it, we were able then to get a venogram by using some contrast and showed that we were below the renal veins, at most at the renal veins. At this point, we fired the mechanism, the prongs of the Bora filter came out adapted probably, it was slightly rotated axis but not significant. We removed the delivery system, held pressure on the right groin for approximately 10 minutes. There was still some bleeding oozing from the puncture site, I think it was just that the patient was very thin and platelets were slightly low. I placed 2-0 Dexon sutures just to approximate the skin edges, put some Steri-Strips and a pressure dressing. The procedure was tolerated well by the patient. Estimated blood loss approximately 5 mL. He was taken to recovery room in good condition. I attest to the content of the Intraoperative Record and any orders documented therein. Any exception s are noted below.
[2016-11-11] MEDS: BOOST PLUS VANILLA PO SCH ×4 (15:08→20:00)
--- NOTE | 2016-11-11 16:47 | Progress Note ---
Internal Med Progress Note Date of Service: Nov 11, 2016. Provider Documentation: SUBJECTIVE: The patient was seen and examined SOB is much better Denies any neck pain or pain anywhere else OBJECTIVE: Vital Signs-as noted below Exam: General-NO distress at rest Eyes-normal ENT-normal Neck-supple Lungs-Decreased breath sound bilaterally Occasional Crackles at the bases Heart-Regular,no murmur Abdomen-Benign,no masses,bowel sound present Extremities-No edema Neuro-AAOx3 Lab data as noted below. ASSESSMENT & PLAN: Stage IV NSCLC with intrathoracic and brain metastases, Possibly evolving metastasis to the liver by imaging during this hospitalization Complicating COPD exacerbation chemotherapy currently on hold secondary to thrombocytopenia. Appreciate Oncology input Appreciate Palliative care input Discussed with the Family members and Oncologist Chronic obstructive pulmonary disease exacerbation. No sepsis. Oxygen administration Doxycycline Acute DVT Right Leg Doubt any Pulmonary Embolism Can not have Blood thinner S/P IVC filter placement Chronic systolic heart failure secondary to ischemic cardiomyopathy, EF 35% ( TTE 2013) Patient is euvolemic. Hx PPM Chronic anemia, hemoglobin at baseline. Malnutrition, low BMI. Thrombocytopenia Noted since 12/2015 and even before with a level of ~100 since 2013 S/P Bone marrow Biopsy-result pending Ongoing tobacco abuse Past EtOH abuse Nicotine Patch DVT prophylaxis, SCDs for now. RE thrombocytopenia Full code as per patient. Discussed with the Patient,Family members and the Oncologist Vital Signs: Date Time Temp Pulse Resp B/P (MAP) Pulse Ox O2 Delivery O2 Flow Rate FiO2 11/11/16 14:30 36.4 76 15 109/72 98 Nasal Cannula 4 11/11/16 14:20 76 19 112/67 93 Nasal Cannula 4 11/11/16 14:12 36.6 78 14 105/64 91 Nasal Cannula 6 11/11/16 13:05 36.7 77 20 108/69 (82) 97 Nasal Cannula 4 11/11/16 12:32 36.8 71 18 112/73 (86) 98 Room Air 11/11/16 08:00 Nasal Cannula 3.0 11/11/16 07:32 36.9 87 16 107/70 (82) 92 Nasal Cannula 3.0 11/11/16 05:00 37.0 84 20 99/65 91 2.0 11/11/16 04:51 36.9 87 18 106/70 Nasal Cannula 2.0 11/11/16 04:30 36.9 81 18 93/64 90 2.0 11/11/16 04:15 36.8 85 20 91/62 90 2.0 11/11/16 03:55 36.7 86 16 104/68 92 11/11/16 02:57 76 20 87/48 98 11/11/16 00:55 86 20 90/58 95 Nasal Cannula 2.0 11/11/16 00:21 84 87/56 97 11/10/16 23:19 83 11/10/16 23:09 92 Nasal Cannula 2.0 11/10/16 23:09 86 20 100/73 95 11/10/16 23:08 89 Room Air 11/10/16 23:04 87 11/10/16 22:27 36.6 84 18 91/56 97 Room Air Lab Results: Results Past 24 Hours Test 11/10/16 23:00 11/11/16 01:13 11/11/16 06:20 Range/Units White Blood Count 11.22 14.17 4.8-10.8 K/uL Red Blood Count 2.72 2.54 4.7-6.1 M/uL Hemoglobin 9.8 8.6 14.0-18.0 g/dL Hematocrit 28.2 25.6 42-52 % Mean Corpuscular Volume 103.7 100.8 80-100 fL Mean Corpuscular Hemoglobin 36.0 33.9 25-34 pg Mean Corpuscular Hemoglobin Concent 34.8 33.6 32-36 g/dl Platelet Count 30 65 130-400 K/uL Neutrophils (%) (Auto) 80.3 90.5 % Lymphocytes (%) (Auto) 5.8 2.3 % Monocytes (%) (Auto) 11.1 5.4 % Eosinophils (%) (Auto) 0.5 0.4 % Basophils (%) (Auto) 0.1 0.1 % Neutrophils # (Auto) 9.01 12.82 1.4-6.5 K/uL Lymphocytes # (Auto) 0.65 0.33 1.2-3.4 K/uL Monocytes # (Auto) 1.24 0.76 0.11-0.59 K/uL Eosinophils # (Auto) 0.06 0.06 0-0.5 K/uL Basophils # (Auto) 0.01 0.01 0-0.2 K/uL RDW Standard Deviation 61.4 60.7 36.4-46.3 fL RDW Coefficient of Variation 16.5 16.5 11.5-14.5 % Immature Granulocyte % (Auto) 2.2 1.3 % Immature Granulocyte # (Auto) 0.25 0.19 0.00-0.02 K/uL Platelet Estimate DECREASED Activated Partial Thromboplast Time 26.0 21.0-31.0 SECONDS Partial Thromboplastin Ratio 1.0 Sodium Level 136 136 136-145 mmol/L Potassium Level 3.2 3.6 3.5-5.1 mmol/L Chloride Level 100 100 98-107 mmol/L Carbon Dioxide Level 31 30 21-32 mmol/L Anion Gap 5.0 6.0 3-11 mmol/L Blood Urea Nitrogen 13 10 7-18 mg/dl Creatinine 0.94 0.60 0.60-1.40 mg/dl Estimated GFR () 102.4 127.6 Estimated GFR (Non- 88.4 110.1 BUN/Creatinine Ratio 14.3 16.3 10-20 Random Glucose 131 126 70-99 mg/dl Calcium Level 8.2 8.2 8.5-10.1 mg/dl Magnesium Level 1.8 1.8-2.4 mg/dl Troponin I 0.229 0.407 0-0.045 ng/ml Chemistry Specimen Hemolysis Arterial Blood pH 7.42 7.35-7.45 Arterial Blood Partial Pressure CO2 44 35-46 mmHg Arterial Blood Partial Pressure O2 78 80-95 mm/Hg Arterial Blood HCO3 28 19-24 mmol/L Arterial Blood Oxygen Saturation 90-95 % Arterial Blood Base Excess 3.2 -9-1.8 mEq/L Arterial Blood Gas Delivery 2L Kevin Test POS POS Lactic Acid Level 1.1 0.4-2.0 mmol/L Ethyl Alcohol mg/dL < 3.0 0-3 mg/dl Mean Platelet Volume 9.9 7.4-10.4 fL Macrocytosis PRESENT Est Creatinine Clear Calc Drug Dose 90.9 ml/min
[2016-11-11] MEDS: DOXYCYCLINE HYCLATE 100 MG CAP PO SCH (20:12)
[2016-11-12] VITALS (10 sets, daily range): BP systolic 112–127; BP diastolic 73–82; PULSE 71–85; TEMP 36.2–36.7; O2SAT 92–98; Ht 167.6 cm; Wt 48.6 kg
[2016-11-12] MEDS: IPRATROPIUM BROMIDE NEB SOLN 0.02% 2.5 ML VIAL INH SCH ×3 (02:39→14:27)
[2016-11-12] MEDS: LEVALBUTEROL 1.25MG/0.5ML NEB INH SCH ×3 (02:39→14:28)
--- NOTE | 2016-11-12 07:36 | Surgery Progress Note ---
Surgery Progress Note Date of Service Nov 12, 2016. Subjective Post OP Day: 1 s/p Bora filter placement op procedure explained to pt KUB noted Objective Vital Signs: Date Time Temp Pulse Resp B/P (MAP) Pulse Ox O2 Delivery O2 Flow Rate FiO2 11/12/16 07:04 85 14 96 Nasal Cannula 3.0 11/12/16 04:20 36.6 77 20 114/75 (88) 94 Nasal Cannula 3.0 11/12/16 02:39 84 16 92 Nasal Cannula 3.0 11/12/16 00:00 98 Nasal Cannula 3.0 11/11/16 23:07 36.7 78 18 120/74 (89) 97 Nasal Cannula 3.0 11/11/16 20:20 36.8 81 18 95/65 (75) 95 Nasal Cannula 3.0 11/11/16 20:00 98 Nasal Cannula 3.0 11/11/16 19:32 81 16 98 Nasal Cannula 3.0 11/11/16 16:10 98 Nasal Cannula 3.0 11/11/16 14:30 36.4 76 15 109/72 98 Nasal Cannula 4 11/11/16 14:20 76 19 112/67 93 Nasal Cannula 4 11/11/16 14:12 36.6 78 14 105/64 91 Nasal Cannula 6 11/11/16 13:05 36.7 77 20 108/69 (82) 97 Nasal Cannula 4 11/11/16 12:32 36.8 71 18 112/73 (86) 98 Room Air 11/11/16 08:00 Nasal Cannula 3.0 11/11/16 07:32 36.9 87 16 107/70 (82) 92 Nasal Cannula 3.0 Incision(s): no erythema (intact no bleeding or hematoma), findings (pressure dressing removed) Laboratory Results: Results Past 24 Hours Test 11/12/16 04:44 Range/Units Assessment & Plan 11/12/16 pt can be d/c from my point of view no restriction activity ss will fall off approximately 1 week as he showers has 2 absorbable skin sutures that should come off on own if still present more than 10 days than pt can come back to office for removal
[2016-11-12] MEDS ORDERED: NICOTINE 14 MG/24 HR TDSY TD SCH (08:00)
[2016-11-12] MEDS: BOOST PLUS VANILLA PO SCH ×4 (08:00→14:00)
[2016-11-12 08:19] LABS: HEMATOCRIT 25.6 % (42-52); MEAN CORPUSCULAR HEMOGLOBIN 33.9 pg (25-34); MEAN CORPUSCULAR HGB CONC 33.2 g/dl (32-36); RED BLOOD COUNT 2.51 M/uL (4.7-6.1); WHITE BLOOD COUNT 10.87 K/uL (4.8-10.8)
[2016-11-12] MEDS: SIMVASTATIN 20 MG TAB PO SCH (08:27)
[2016-11-12] MEDS: FoLIC ACID TAB 400 MCG TAB PO SCH (08:27)
[2016-11-12] MEDS: DEXAMETHASONE 4 MG TAB PO SCH (08:28)
[2016-11-12] MEDS: DOXYCYCLINE HYCLATE 100 MG CAP PO SCH (08:28)
[2016-11-12] MEDS: SOTALOL HCL 80 MG TAB PO SCH (08:28)
[2016-11-12] MEDS: LISINOPRIL 2.5 MG TAB PO SCH (08:28)
[2016-11-12] MEDS: ACETAMINOPHEN 325 MG TAB PO SCH (08:29)
[2016-11-12 08:38] LABS: MEAN PLATELET VOLUME 10.6 fL (7.4-10.4); PLATELET COUNT 68 K/uL (130-400)
[2016-11-12 08:51] LABS: BASO % 0.1 %; BASO ABS # 0.01 K/uL (0-0.2); COMPLETE YES; GIANT PLATELETS 1+; IG% 0.7 %; LYMPH % 3.2 %; LYMPH ABS # 0.35 K/uL (1.2-3.4); MONO % 6.6 %; NEUT % 89.4 %; POIKILOCYTOSIS PRESENT
[2016-11-12 09:03] LABS: BUN/CREATININE RATIO 19.1 (10-20); CALCIUM 8.6 mg/dl (8.5-10.1); CREATININE 0.69 mg/dl (0.60-1.40); MAGNESIUM 1.9 mg/dl (1.8-2.4); PHOSPHORUS 2.3 mg/dl (2.5-4.9); POTASSIUM 4.3 mmol/L (3.5-5.1)
--- NOTE | 2016-11-12 13:54 | Progress Note ---
Internal Med Progress Note Date of Service: Nov 12, 2016. Provider Documentation: SUBJECTIVE: The patient was seen and examined SOB is much better Denies any neck pain or pain anywhere else Denies any other symptoms Wants to go home OBJECTIVE: Vital Signs-as noted below Exam: General-No distress at rest Eyes-normal ENT-normal Neck-supple Lungs-Decreased breath sound bilaterally Occasional Crackles at the bases Heart-Regular,no murmur Abdomen-Benign,no masses,bowel sound present Extremities-No edema Neuro-AAOx3 Lab data as noted below. ASSESSMENT & PLAN: Stage IV NSCLC with intrathoracic and brain metastases, Possibly evolving metastasis to the liver by imaging during this hospitalization Complicating COPD exacerbation chemotherapy currently on hold secondary to thrombocytopenia. Appreciate Oncology input Appreciate Palliative care input Discussed with the Family members and Oncologist Remains stable Will get 2 steps Saturation test before discharge Chronic obstructive pulmonary disease exacerbation. No sepsis. Oxygen administration Doxycycline -will finish the course Acute DVT Right Leg Doubt any Pulmonary Embolism Can not have Blood thinner S/P IVC filter placement No issues following placement of the IVC filter Chronic systolic heart failure secondary to ischemic cardiomyopathy, EF 35% ( TTE 2013) Patient is euvolemic. Hx PPM Chronic anemia, hemoglobin at baseline. Malnutrition, low BMI. Thrombocytopenia Noted since 12/2015 and even before with a level of ~100 since 2013 S/P Bone marrow Biopsy-result pending Ongoing tobacco abuse Past EtOH abuse Nicotine Patch DVT prophylaxis, SCDs for now. RE thrombocytopenia Full code as per patient. Discussed with the Patient,Family members and the Oncologist Was seen by Dr Mike last evening Patient wants top go home today Discharge after 2 steps Vital Signs: Date Time Temp Pulse Resp B/P (MAP) Pulse Ox O2 Delivery O2 Flow Rate FiO2 11/12/16 11:57 36.7 71 20 114/73 (87) 97 Nasal Cannula 3.0 11/12/16 08:30 95 Nasal Cannula 3.0 11/12/16 07:30 36.2 79 24 127/82 (97) 95 Nasal Cannula 3.0 11/12/16 07:04 85 14 96 Nasal Cannula 3.0 11/12/16 04:20 36.6 77 20 114/75 (88) 94 Nasal Cannula 3.0 11/12/16 02:39 84 16 92 Nasal Cannula 3.0 11/12/16 00:00 98 Nasal Cannula 3.0 11/11/16 23:07 36.7 78 18 120/74 (89) 97 Nasal Cannula 3.0 11/11/16 20:20 36.8 81 18 95/65 (75) 95 Nasal Cannula 3.0 11/11/16 20:00 98 Nasal Cannula 3.0 11/11/16 19:32 81 16 98 Nasal Cannula 3.0 11/11/16 16:10 98 Nasal Cannula 3.0 11/11/16 14:30 36.4 76 15 109/72 98 Nasal Cannula 4 11/11/16 14:20 76 19 112/67 93 Nasal Cannula 4 11/11/16 14:12 36.6 78 14 105/64 91 Nasal Cannula 6 Lab Results: Results Past 24 Hours Test 11/12/16 07:54 Range/Units White Blood Count 10.87 4.8-10.8 K/uL Red Blood Count 2.51 4.7-6.1 M/uL Hemoglobin 8.5 14.0-18.0 g/dL Hematocrit 25.6 42-52 % Mean Corpuscular Volume 102.0 80-100 fL Mean Corpuscular Hemoglobin 33.9 25-34 pg Mean Corpuscular Hemoglobin Concent 33.2 32-36 g/dl Platelet Count 68 130-400 K/uL Mean Platelet Volume 10.6 7.4-10.4 fL Neutrophils (%) (Auto) 89.4 % Lymphocytes (%) (Auto) 3.2 % Monocytes (%) (Auto) 6.6 % Eosinophils (%) (Auto) 0.0 % Basophils (%) (Auto) 0.1 % Neutrophils # (Auto) 9.71 1.4-6.5 K/uL Lymphocytes # (Auto) 0.35 1.2-3.4 K/uL Monocytes # (Auto) 0.72 0.11-0.59 K/uL Eosinophils # (Auto) 0.00 0-0.5 K/uL Basophils # (Auto) 0.01 0-0.2 K/uL RDW Standard Deviation 58.5 36.4-46.3 fL RDW Coefficient of Variation 16.1 11.5-14.5 % Immature Granulocyte % (Auto) 0.7 % Immature Granulocyte # (Auto) 0.08 0.00-0.02 K/uL Giant Platelets 1+ Poikilocytosis PRESENT Sodium Level 134 136-145 mmol/L Potassium Level 4.3 3.5-5.1 mmol/L Chloride Level 99 98-107 mmol/L Carbon Dioxide Level 33 21-32 mmol/L Anion Gap 2.0 3-11 mmol/L Blood Urea Nitrogen 13 7-18 mg/dl Creatinine 0.69 0.60-1.40 mg/dl Est Creatinine Clear Calc Drug Dose 79.2 ml/min Estimated GFR () 120.4 Estimated GFR (Non- 103.9 BUN/Creatinine Ratio 19.1 10-20 Random Glucose 146 70-99 mg/dl Calcium Level 8.6 8.5-10.1 mg/dl Phosphorus Level 2.3 2.5-4.9 mg/dl Magnesium Level 1.9 1.8-2.4 mg/dl
[2016-11-12] MEDS ORDERED: NICO14DI5 TD (16:12)
[2016-11-12] MEDS ORDERED: DXY100 PO (16:12)
[2016-11-12] MEDS ORDERED: LCTX PO (16:12)
[2016-11-12] MEDS ORDERED: DXM4 PO (16:12)
--- NOTE | 2016-11-12 16:14 | Discharge Instructions ---
Discharge Instructions Date of Service Nov 12, 2016. Admission Reason for Admission: DVT Discharge Discharge Diagnosis / Problem: Right leg Acute DVT,Carcinoma of the lung with metastases Discharge Goals Goal(s): Prevent Disease Progression Activity Recommendations Activity Limitations: resume your previous activity . Instructions / Follow-Up Instructions / Follow-Up Dr Lea on 11/18/16 at 2:05PM.Please keep appointment with your Oncologist Current Hospital Diet Patient's current hospital diet: Regular Diet Discharge Diet Recommended Diet: Regular Diet Procedures Procedures Performed: Right Femoral Bora Filter Insertion, venogram Pending Studies Studies pending at discharge: no Medical Emergencies . Who to Call and When: Medical Emergencies: If at any time you feel your situation is an emergency, please call 911 immediately. . Non-Emergent Contact Non-Emergency issues call your: Primary Care Provider . Past History Medical & Surgical History: (1) Cavitating mass in right upper lung lobe (2) Hypoxia (3) COPD exacerbation (4) Mass of lung (5) DVT (deep venous thrombosis) (6) Thrombocytopenia (7) Right leg DVT (8) Pacemaker . "Provider Documentation" section prepared by Rohan Higginbotham. . VTE Core Measure Inpt VTE Proph given/why not?: SCD's (Thrombocytopenia)
[2016-11-13] MEDS ORDERED: DOXY100C76 PO (01:20)
[2016-11-13] MEDS ORDERED: LCTX PO (01:22)
[2016-11-13] MEDS ORDERED: NICO14DI9 TOP (01:23)
[2016-11-13] MEDS ORDERED: DXM/4 PO (01:25)
--- NOTE | 2016-11-13 07:37 | Discharge Summary ---
Discharge Summary Date of Service Nov 13, 2016. Discharge Summary Admission Date: Nov 11, 2016 at 01:42 Discharge Date: Nov 12, 2016 Discharge Disposition: Home Principal Diagnosis: Right leg Acute DVT,Carcinoma of the lung with metastases Secondary Diagnoses/Problems: Please see H&P and Hospital progress notes Procedures: IVC filter placement Consultations: Oncology,Palliative Care and Vascular Surgery Medication Reconciliation Continued Medications: Acetaminophen Tab (Tylenol) 325 Mg Tab 325 MG PO BID, TAB Carvedilol (Coreg) 12.5 Mg Tab 12.5 MG PO BID, 1 Refill Folic Acid (Folic Acid) 400 Mcg Tab 800 MCG PO DAILY Lisinopril (Zestril) 10 Mg Tab 5 MG PO QAM, 0 Refills Magnesium Oxide (Mag-Ox) 400 Mg Tab 400 MG PO DAILY, TAB Simvastatin (Zocor) 20 Mg Tab 20 MG PO QAM, TAB Sotalol Hcl (Sotalol Hcl) 80 Mg Tab 1 TAB PO BID, TAB Admission Information HPI (per Admitting provider): DATE OF ADMISSION: 11/11/2016 PRIMARY CARE DOCTOR: Dr. Lea. CHIEF COMPLAINT: sent back by oncologist. History obtained from patient and records. HISTORY OF PRESENT ILLNESS: Medical history significant for lung cancer with bone and brain mets status post chemoradiation, chronic systolic heart failure secondary to ischemic cardiomyopathy EF of 30-35% 2014 2D echo, CAD as per records, hypertension, hyperlipidemia, hx PPM, past alcohol abuse, ongoing tobacco abuse, Chronic anemia, baseline hemoglobin 9., chronic thrombocytopenia. Recent confinement at [facility] November 2013 for displaced fracture, COPD exacerbation , pneumonia and lung mass. Patient transferred to [facility]. Last October 2015 patient found to have IIIb nonsmall cell lung cancer of right upper lobe. Subsequently underwent chemotherapy. Had a PET scan in August 2016, which showed multiloculated left malignant pleural effusion. CT of the head also showed a 3 cm ring enhancing low density mass, right cerebellum with vasogenic edema. Chemotherapy held because of low platelets. The patient underwent radiotherapy. Patient stopped Decadron prescribed by oncologist for vasogenic edema from brain tumor because it makes him swell up. New vertebral mets, rib mets, and new brain lesion noted on recent CTs from about 2 weeks ago. Patient was at oncologist's office last week for bone marrow aspirate and biopsy. The last 2 days, the patient noted increasing shortness of breath, cough symptoms. Denies aspiration. No chest pain, some leg swelling as well. Seen at the Emergency Room yesterday. CTA noted cavitating anterior right upper lobe mass compatible with lung cancer, interval development of loculated moderate left pleural effusion, bronchitis, mediastinal left axillary adenopathy and cardiomegaly, no obvious PE. CT of the abdomen and pelvis noted a third order filling defect left lower lobe vessel. LE Venous Doppler showed extensive acute DVT of the right thigh and lower leg. Patient refused admission and decided to go home. CT of the head showed no acute intracranial hemorrhage, vasogenic edema, subcortical left frontal lobe right cerebral hemisphere, no significant change. At home, the patient received a phone call from oncologist advising the patient to go back to the hospital to be admitted. MEDICAL HISTORY: As above. The patient's finance lecturer is Dr. Aguilera. SURGERIES: Pacemaker, A-port placement. HOME MEDICATIONS: Include Tylenol, carvedilol, folic acid, lisinopril, simvastatin, sotalol, mag oxide. ALLERGIES: IBUPROFEN. FAMILY HISTORY: Colon cancer, heart disease. 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 REVIEW OF SYSTEMS: As per HPI, all other ROS negative. PHYSICAL EXAMINATION: VITAL SIGNS: Blood pressure was noted to be 104/68, pulse rate 86, RR 16, temperature 36.7, sats 92 on 2 liters. GENERAL: Noted to be comfortable, no respiratory distress. SKIN: Pallor. HEENT: Pale palpebral conjunctivae, dry mucosa, some facial asymmetry. NECK: No JVD. Supple. CHEST: Expiratory wheezes. HEART: Regular rate and rhythm. ABDOMEN: Soft. EXTREMITIES: Minimal lower extremity edema. No tenderness. NEUROLOGIC: No gross focality except for some chronic facial asymmetry. LABS: Hemoglobin was noted to be 9.8, white blood cell count 11.32, platelets 30. Sodium 136, potassium 3.2, chloride 100, CO2 of 31, BUN 13, creatinine 0.9, glucose 131, troponin 0.229. ABG pH 7.42, pCO2 of 44, pO2 of 78 on 2 liters. EKG rate 85, normal sinus rhythm, LVH, PVCs, some T-wave abnormalities on the lateral leads as per my interpretation. ASSESSMENT: 1. Chronic obstructive pulmonary disease exacerbation. No sepsis. 2. lung cancer with lung and brain metastases status post chemoradiation worsening tumor burden chemotherapy currently on hold secondary to thrombocytopenia. 3. Acute DVT, possible PE. 4. Chronic systolic heart failure secondary to ischemic cardiomyopathy, EF 35% ( TTE 2013) patient is euvolemic. 5. Hx PPM 6. Chronic anemia, hemoglobin at baseline. 7. Malnutrition, low BMI. 8. Ongoing tobacco abuse 9. past EtOH abuse 10. hypokalemia PLAN: GMF. Doxycycline, nebs, RTC p.r.n. Patient counseled to resume home steroid prescription from oncologist Off Decadron twice a day Decadron b.i.d. for vasogenic edema from intracranial mets. (Will likewise work for COPD exacerbation.) IVC filter placement given contraindication to anticoagulation given patient's circumstances. ER physician already in touch with surgeon building construction superintendent, Dr. Tracy. Palliative care consult as per patient's oncologist recommendation. replace K Nutrition consult, low BMI, Nicotine patch. DVT prophylaxis, SCDs for now. RE thrombocytopenia Full code as per patient. He would consider a DNR after conferring with his brother, Mr. Eleazar Arreaga. Left message on Mr. Arreaga's phone to call back provider at [phone]. Hospital Course Stage IV NSCLC with intrathoracic and brain metastases, Possibly evolving metastasis to the liver by imaging during this hospitalization Complicating COPD exacerbation chemotherapy currently on hold secondary to thrombocytopenia. Appreciate Oncology input Appreciate Palliative care input Discussed with the Family members and Oncologist Remains stable Will get 2 steps Saturation test before discharge Chronic obstructive pulmonary disease exacerbation. No sepsis. Oxygen administration Doxycycline -will finish the course Acute DVT Right Leg Doubt any Pulmonary Embolism Can not have Blood thinner S/P IVC filter placement No issues following placement of the IVC filter Chronic systolic heart failure secondary to ischemic cardiomyopathy, EF 35% ( TTE 2013) Patient is euvolemic. Hx PPM Chronic anemia, hemoglobin at baseline. Malnutrition, low BMI. Thrombocytopenia Noted since 12/2015 and even before with a level of ~100 since 2013 S/P Bone marrow Biopsy-result pending Ongoing tobacco abuse Past EtOH abuse Nicotine Patch DVT prophylaxis, SCDs for now. RE thrombocytopenia Full code as per patient. Discussed with the Patient,Family members and the Oncologist Was seen by Dr Mike last evening Patient wants top go home today Discharge after 2 steps Total time spent on discharge = This includes examination of the patient, discharge planning, medication reconciliation, and communication with other providers. Discharge Instructions Date of Service Nov 12, 2016. Admission Reason for Admission: DVT Discharge Discharge Diagnosis / Problem: Right leg Acute DVT,Carcinoma of the lung with metastases Discharge Goals Goal(s): Prevent Disease Progression Activity Recommendations Activity Limitations: resume your previous activity . Instructions / Follow-Up Instructions / Follow-Up Dr Lea on 11/18/16 at 2:05PM.Please keep appointment with your Oncologist Current Hospital Diet Patient's current hospital diet: Regular Diet Discharge Diet Recommended Diet: Regular Diet Procedures Procedures Performed: Right Femoral [place] Filter Insertion, venogram Pending Studies Studies pending at discharge: no Medical Emergencies . Who to Call and When: Medical Emergencies: If at any time you feel your situation is an emergency, please call 911 immediately. . Non-Emergent Contact Non-Emergency issues call your: Primary Care Provider . Past History Medical & Surgical History: (1) Cavitating mass in right upper lung lobe (2) Hypoxia (3) COPD exacerbation (4) Mass of lung (5) DVT (deep venous thrombosis) (6) Thrombocytopenia (7) Right leg DVT (8) Pacemaker . "Provider Documentation" section prepared by Rohan Higginbotham. . VTE Core Measure Inpt VTE Proph given/why not?: SCD's (Thrombocytopenia) <Electronically signed by Rohan Higginbotham M.D.> Additional Copies To Rayray Lea M.D.
== END 2016-11-12 17:31 | disposition home or self-care (01) | DRG 252 ==
LOC: C.EDB 22:22 → C.4E 11-11 01:42 → CANRESERV 11-11 02:09 → ENRESERV 11-11 02:09 → CANBEDREQ 11-11 02:09 → ENRESERV 11-11 02:22
PROVIDERS: ADMIT Internal Medicine; ATTEND Internal Medicine
PROC: 06H03DZ Insertion of Intraluminal Device into Inferior Vena Cava, Percutaneous Approach (ICD-10-PCS; principal; 2016-11-11 12:30)
DX: I82.4Z1 Acute embolism and thrombosis of unspecified deep veins of right distal lower extremity (principal); G93.6 Cerebral edema; C34.11 Malignant neoplasm of upper lobe, right bronchus or lung; C79.51 Secondary malignant neoplasm of bone; C79.31 Secondary malignant neoplasm of brain; C78.7 Secondary malignant neoplasm of liver and intrahepatic bile duct; R64 Cachexia; E46 Unspecified protein-calorie malnutrition; Z68.1 Body mass index [BMI] 19.9 or less, adult; I50.22 Chronic systolic (congestive) heart failure; M84.58XA Pathological fracture in neoplastic disease, other specified site, initial encounter for fracture; J91.0 Malignant pleural effusion; J44.1 Chronic obstructive pulmonary disease with (acute) exacerbation; E87.6 Hypokalemia; I11.0 Hypertensive heart disease with heart failure; I25.5 Ischemic cardiomyopathy; G89.3 Neoplasm related pain (acute) (chronic); I25.10 Atherosclerotic heart disease of native coronary artery without angina pectoris; E78.5 Hyperlipidemia, unspecified; D53.9 Nutritional anemia, unspecified; D69.6 Thrombocytopenia, unspecified; F17.210 Nicotine dependence, cigarettes, uncomplicated; Z91.14 Patient's other noncompliance with medication regimen; Z95.0 Presence of cardiac pacemaker; Z86.59 Personal history of other mental and behavioral disorders; Z92.21 Personal history of antineoplastic chemotherapy; Z92.3 Personal history of irradiation; Z79.899 Other long term (current) drug therapy; C79.2 Secondary malignant neoplasm of skin; N28.0 Ischemia and infarction of kidney; Z91.19 Patient's noncompliance with other medical treatment and regimen; Z88.6 Allergy status to analgesic agent; Z82.49 Family history of ischemic heart disease and other diseases of the circulatory system; Z80.9 Family history of malignant neoplasm, unspecified

== ENCOUNTER 2016-11-13 01:03 | Inpatient (IN) | payer OTHER ==
[~2016-11-13] VITALS: Ht 167.6 cm; Wt 44.6 kg
[~2016-11-13 01:03] MED LIST changes: -CRG125 PO; +DXM4 PO; +DXY100 PO; +FLV400 PO; -Folic Acid PO; +LCTX PO; +NICO14DI5 TD
[2016-11-13] MEDS ORDERED: DOXY100C76 PO (01:20)
[2016-11-13] MEDS ORDERED: LCTX PO (01:22)
[2016-11-13] MEDS ORDERED: NICO14DI9 TOP (01:23)
--- NOTE | 2016-11-13 01:23 | EMERGENCY ROOM VISIT NOTE ---
History Report prepared by Norberto: Lauren Powers Under the Supervision of: Dr. Figueroa Rucker D.O. First contact with patient: 01:07 Chief Complaint: ALTERED MENTAL STATUS Stated Complaint: ALTERED MENTAL STATUS History of Present Illness The patient is a 61 year old male who presents to the Emergency Room via ALS with a persistent change in mental status that began just prior to arrival. Per nursing staff, the patient was just discharged from the hospital today after having a carl filter placed. Nursing staff reports the patient recently had a DVT in his right leg. Nursing staff reports that the patient typically speaks normally. Nursing staff states that the patient took his instructed medications between 1999 and 0, and notes that after 0, the patient noted that he may have taken too many of his pills. Nursing staff reports that the patient's brother found the patient around midnight on the floor after hearing a loud crashing noise. The patient's brother states that he is unsure if the patient had any head trauma, but notes that the patient was altered since then. The history is limited secondary to the patient's altered mental status. Source of History: family (brother), nursing staff History Limited By: AMS Onset: prior to arrival Position: other (global) Quality: other (altered mental status) Timing: other (persistent, sudden) Review of Systems The history and ROS are limited secondary to the patient's altered mental status. Past Medical & Surgical Medical Problems: (1) DVT (deep venous thrombosis) (2) Lung cancer (3) Pacemaker Family History FH: CAD (coronary artery disease) MOTHER FH: cancer FATHER (type unknown) Social History Smoking Status: Current Every Day Smoker Alcohol Use: none Drug Use: none Marital Status: single Housing Status: lives with family Occupation Status: disabled Current/Historical Medications Scheduled Acetaminophen Tab (Tylenol), 325 MG PO BID Carvedilol (Coreg), 12.5 MG PO BID Dexamethasone (Decadron), 4 MG PO DIRECTED Doxycycline Monohydrate (Monodox), 100 MG PO BID Folic Acid (Folic Acid), 800 MCG PO DAILY Lactobacillus Acidophilus (Lactinex), 2 TABS PO BID Lisinopril (Zestril), 5 MG PO QAM Magnesium Oxide (Mag-Ox), 400 MG PO DAILY Nicotine (Nicotine), 1 PATCH TOP DAILY Simvastatin (Zocor), 20 MG PO QAM Sotalol Hcl (Sotalol Hcl), 1 TAB PO BID Allergies Coded Allergies: Ibuprofen (Verified Allergy, Unknown, ITCHING - BUT TAKES ASA WITHOUT PROBLEM, 11/13/16) Physical Exam Vital Signs Date Time Temp Pulse Resp B/P (MAP) Pulse Ox O2 Delivery O2 Flow Rate FiO2 11/13/16 01:55 105 14 128/81 92 Room Air 11/13/16 01:24 95 11/13/16 01:21 Room Air 11/13/16 01:12 36.3 94 20 140/103 95 Room Air Physical Exam GENERAL: cachectic in appearance, alert, garbled speech at times. HENT: Normocephalic, atraumatic. Oropharynx unremarkable. EYES: Normal conjunctiva. Sclera non-icteric. NECK: Supple. No nuchal rigidity. FROM. No JVD. RESPIRATORY: Clear to auscultation. CARDIAC: Regular rate, normal rhythm. Extremities warm and well perfused. Pulses equal. ABDOMEN: Soft, non-distended. No tenderness to palpation. No rebound or guarding. No masses. RECTAL: Deferred. MUSCULOSKELETAL: Chest examination reveals no tenderness. The back is symmetrical on inspection without obvious abnormality. There is no CVA tenderness to palpation. No joint edema. LOWER EXTREMITIES: Calves are equal size bilaterally and non-tender. No edema. No discoloration. NEURO: Confusin, garbled speech intermittently. SKIN: No rash or jaundice noted. Medical Decision & Procedures ER Provider Diagnostic Interpretation: CT: Radiology results as stated below per my review and radiologist interpretation CT HEAD: Examination is limited by motion artifact. Evaluation for brain metastases is also limited by lack of IV contrast. Contrast-enhanced CT head or [id number] MRI would be more sensitive for evaluation for brain metastases. Similar vague hypodensity in the lateral right cerebellar hemisphere and similar small hypodensity in the left frontal lobe likely corresponds to the ring-enhancing masses seen on prior contrast-enhanced CT on 10/31/2016. No acute infarct or hemorrhage identified. Stable senescent calcifications in the basal ganglia. Stale mild chronic small vessel ischemic disease. Left frontal craniotomy changes, stable. Radiologist: Stephanie Lamas MD Study ready at 0137 and initial results transmitted at 0152 Laboratory Results 11/13/16 00:44 Red Blood Count 2.72, Mean Corpuscular Volume 101.8, Mean Corpuscular Hemoglobin 34.6, Mean Corpuscular Hemoglobin Concent 33.9, Mean Platelet Volume 10.8, Neutrophils (%) (Auto) 91.9, Lymphocytes (%) (Auto) 1.7, Monocytes (%) ( Auto) 5.8, Eosinophils (%) (Auto) 0.0, Basophils (%) (Auto) 0.1, Neutrophils # ( Auto) 15.27, Lymphocytes # (Auto) 0.29, Monocytes # (Auto) 0.96, Eosinophils # ( Auto) 0.00, Basophils # (Auto) 0.01 11/13/16 00:44 Test 11/13/16 00:44 11/13/16 01:33 11/13/16 03:21 White Blood Count 16.62 K/uL (4.8-10.8) Red Blood Count 2.72 M/uL (4.7-6.1) Hemoglobin 9.4 g/dL (14.0-18.0) Hematocrit 27.7 % (42-52) Mean Corpuscular Volume 101.8 fL (80-100) Mean Corpuscular Hemoglobin 34.6 pg (25-34) Mean Corpuscular Hemoglobin Concent 33.9 g/dl (32-36) Platelet Count 78 K/uL (130-400) Mean Platelet Volume 10.8 fL (7.4-10.4) Neutrophils (%) (Auto) 91.9 % Lymphocytes (%) (Auto) 1.7 % Monocytes (%) (Auto) 5.8 % Eosinophils (%) (Auto) 0.0 % Basophils (%) (Auto) 0.1 % Neutrophils # (Auto) 15.27 K/uL (1.4-6.5) Lymphocytes # (Auto) 0.29 K/uL (1.2-3.4) Monocytes # (Auto) 0.96 K/uL (0.11-0.59) Eosinophils # (Auto) 0.00 K/uL (0-0.5) Basophils # (Auto) 0.01 K/uL (0-0.2) RDW Standard Deviation 59.0 fL (36.4-46.3) RDW Coefficient of Variation 16.2 % (11.5-14.5) Immature Granulocyte % (Auto) 0.5 % Immature Granulocyte # (Auto) 0.09 K/uL (0.00-0.02) Poikilocytosis PRESENT Prothrombin Time 12.5 SECONDS (9.0-12.0) Prothromb Time International Ratio 1.2 (0.9-1.1) Anion Gap 6.0 mmol/L (3-11) Estimated GFR () 95.1 Estimated GFR (Non- 82.0 BUN/Creatinine Ratio 17.0 (10-20) Calcium Level 9.0 mg/dl (8.5-10.1) Total Bilirubin 0.6 mg/dl (0.2-1) Direct Bilirubin 0.1 mg/dl (0-0.2) Aspartate Amino Transf (AST/SGOT) 15 U/L (15-37) Alanine Aminotransferase (ALT/SGPT) 20 U/L (12-78) Alkaline Phosphatase 78 U/L (45-117) Total Protein 6.0 gm/dl (6.4-8.2) Albumin 2.7 gm/dl (3.4-5.0) Bedside Glucose 138 mg/dl (70-99) Laboratory results reviewed by me Medications Administered Medications (Trade) Dose Ordered Sig/Claude Route Start Time Stop Time Status Last Admin Dose Admin Lorazepam (Ativan Inj) 2 mg STK-MED ONCE .ROUTE 11/13/16 02:28 11/13/16 02:29 DC 11/13/16 02:40 1 MG ECG Indication: altered mental status Rate (beats per minute): 97 Rhythm: normal sinus Findings: no acute ischemic change, other (poor R wave progression in precordium, normal axis) ED Course 0109: The patient was evaluated in room B9. A complete history and physical exam was performed. 0220: I reevaluated the patient and he is resting, but refusing to stay. I discussed the exam findings with the patients family and I discussed the treatment plan. They verbalized complete understanding and agreement. The patient will be evaluated for further treatment. 0228: Ordered Ativan Inj 2 mg .route. 0301: I discussed the patients case with Ranjith Bolton. He will evaluate the patient for further treatment. Patient will be staying in the hospital I discussed the evaluation with the patient's family and the patient patient is extremely confused and does not understand what is going on at this time requires further admission and treatment Medical Decision Differential diagnoses include but are not limited to; brain tumor, CVA, TIA, metabolic derangement, intracranial hemorrhage. Medication Reconcilliation Current Medication List: was personally reviewed by me Blood Pressure Screening Patient's blood pressure: Elevated blood pressure The patient's elevated blood pressure will be addressed as an inpatient. Consults Time Called: 024 Consulting Physician: Ranjith Bolton Returned Call: 0301 I discussed the patients case with Ranjith Bolton. He will evaluate the patient for further treatment. Impression Primary Impression: Altered mental status Additional Impressions: Confusion Malignant neoplasm metastatic to brain Scribe Attestation The scribe's documentation has been prepared under my direction and personally reviewed by me in its entirety. I confirm that the note above accurately reflects all work, treatment, procedures, and medical decision making performed by me. Departure Information Dispostion Being Evaluated By Hospitalist Rayray Alcantara M.D. (PCP) Problem Qualifiers
[2016-11-13] MEDS ORDERED: DXM/4 PO (01:25)
[2016-11-13 01:26] LABS: HEMATOCRIT 27.7 % (42-52); MEAN CELL VOLUME 101.8 fL (80-100); MEAN CORPUSCULAR HEMOGLOBIN 34.6 pg (25-34); MEAN CORPUSCULAR HGB CONC 33.9 g/dl (32-36); RED BLOOD COUNT 2.72 M/uL (4.7-6.1); WHITE BLOOD COUNT 16.62 K/uL (4.8-10.8)
[2016-11-13 01:34] LABS: MEAN PLATELET VOLUME 10.8 fL (7.4-10.4); PLATELET COUNT 78 K/uL (130-400)
[2016-11-13 01:36] LABS: INR 1.2 (0.9-1.1); PROTHROMBIN TIME (PATIENT) 12.5 SECONDS (9.0-12.0)
[2016-11-13 01:46] LABS: ALT/SGPT 20 U/L (12-78); AST/SGOT 15 U/L (15-37); BLOOD UREA NITROGEN 17 mg/dl (7-18); CARBON DIOXIDE 31 mmol/L (21-32); CHLORIDE 98 mmol/L (98-107); GLUCOSE 119 mg/dl (70-99); POTASSIUM 4.2 mmol/L (3.5-5.1); SODIUM 135 mmol/L (136-145)
[2016-11-13 01:50] LABS: BASO % 0.1 %; BASO ABS # 0.01 K/uL (0-0.2); COMPLETE YES; IG% 0.5 %; LYMPH % 1.7 %; LYMPH ABS # 0.29 K/uL (1.2-3.4); MONO % 5.8 %; NEUT % 91.9 %; POIKILOCYTOSIS PRESENT
[2016-11-13 01:58] LABS: ALKALINE PHOSPHATASE 78 U/L (45-117)
[2016-11-13] MEDS ORDERED: LORAZEPAM 2 MG/ML 1 ML VIAL ONE (02:28)
--- NOTE | 2016-11-13 03:41 | History and Physical ---
History & Physical Date & Time of Service: Nov 13, 2016 at 03:41 Chief Complaint: Altered Mental Status Primary Care Physician: Rayray Lea M.D. History of Present Illness Source: clinic records, hospital records 61 YO male followed by Dr. Lea for FM and Dr. Miek for Medical Oncology. 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 Disease has progressed despite chemotherapy and radiation therapy. Presented to ED 11/10 with lower extremity DVT. Could not be anticoagulated due to brain mets and thrombocytopenia. IVC filter placed. Seen in consultation by Medical Oncology. Functional status poor. No further therapies recommended. Palliative care consultation requested. Discharged to home yesterday afternoon. Tonight his family noted that he was very confused and had difficulty speaking. No apparent fever. No apparent head injury. There was concern that he may have inadvertently taken an old med or an extra dose of one of his current meds, but patient could not be specific. He was brought to ED for evaluation. Patient was very upset at time of my assessment because he wished to be discharged to home. He denied headache, fever, cough, SOB, nausea, vomiting, or other problems. . . Past Medical/Surgical History Medical Problems: (1) Lung cancer Permanent Comment: DIAGNOSIS: Lung, RUL, adenocarcinoma, T3N3Mx, stage IIIB -Status post combined radiation and chemotherapy (carboplatin/alimta). -Radiation completed 01/08/2016. Received 4000 cGy. -4 cycles of adjuvant/maintenance Alimta (Dr. Mike) -PET/CT - 08/20/2016 - shows progression of disease -Restarted on Alimta -CT Head - 09/01/2016 - Right cerebellum solitary brain metastasis Status post completion of stereotactic radiation therapy 10/04/2015. He received 3000 cGy in 5 fractions Status: Chronic (2) Pacemaker Status: Chronic Family History FH: CAD (coronary artery disease) MOTHER FH: cancer FATHER (type unknown) Social History Smoking Status: Current Some Day Smoker Drug Use: none Marital Status: single Housing status: lives with family Occupational Status: disabled Immunizations History of Influenza Vaccine: Unknown History of Tetanus Vaccine?: Unknown History of Pneumococcal: Unknown History of Hepatitis B Vaccine: Unknown Multi-Drug Resistant Organisms History of MDRO: No Allergies Coded Allergies: Ibuprofen (Verified Allergy, Unknown, ITCHING - BUT TAKES ASA WITHOUT PROBLEM, 11/13/16) Home Medications Scheduled Acetaminophen Tab (Tylenol), 325 MG PO BID Carvedilol (Coreg), 12.5 MG PO BID Dexamethasone (Decadron), 4 MG PO DIRECTED Doxycycline Monohydrate (Monodox), 100 MG PO BID Folic Acid (Folic Acid), 800 MCG PO DAILY Lactobacillus Acidophilus (Lactinex), 2 TABS PO BID Lisinopril (Zestril), 5 MG PO QAM Magnesium Oxide (Mag-Ox), 400 MG PO DAILY Nicotine (Nicotine), 1 PATCH TOP DAILY Simvastatin (Zocor), 20 MG PO QAM Sotalol Hcl (Sotalol Hcl), 1 TAB PO BID Review of Systems As noted above in HPI. . Physical Exam Vital Signs Date Time Temp Pulse Resp B/P (MAP) Pulse Ox O2 Delivery O2 Flow Rate FiO2 11/13/16 01:55 105 14 128/81 92 Room Air 11/13/16 01:24 95 11/13/16 01:21 Room Air 11/13/16 01:12 36.3 94 20 140/103 95 Room Air General Appearance: + mild distress, + cachetic Head: normocephalic, atraumatic Eyes: PERRL, EOMI, sclerae normal ENT: hearing grossly normal Neck: supple, thyroid normal, trachea midline Respiratory/Chest: no respiratory distress, no accessory muscle use, + wheezing Cardiovascular: regular rate, rhythm, no gallop, no JVD, + pertinent finding ( left infraclavicular pacemaker; right infraclavicular vascular access port; trace pretibial edema, no calf tenderness) Abdomen/GI: normal bowel sounds, non tender, soft, no organomegaly, no pulsatile mass Extremities/Musculoskelatal: no calf tenderness, no pedal edema Neurologic/Psych: + pertinent finding (upset, dysarthric, ? expressive aphasia ; genearlized motor weakness; plantar reflexes equivocal bilaterally) Skin: normal color, warm/dry, no rash, + pertinent finding (1 cm nodular mass right upper back) Diagnostics Laboratory Results Results Past 24 Hours Test 11/13/16 00:44 11/13/16 01:33 11/13/16 03:34 Range/Units White Blood Count 16.62 4.8-10.8 K/uL Red Blood Count 2.72 4.7-6.1 M/uL Hemoglobin 9.4 14.0-18.0 g/dL Hematocrit 27.7 42-52 % Mean Corpuscular Volume 101.8 80-100 fL Mean Corpuscular Hemoglobin 34.6 25-34 pg Mean Corpuscular Hemoglobin Concent 33.9 32-36 g/dl Platelet Count 78 130-400 K/uL Mean Platelet Volume 10.8 7.4-10.4 fL Neutrophils (%) (Auto) 91.9 % Lymphocytes (%) (Auto) 1.7 % Monocytes (%) (Auto) 5.8 % Eosinophils (%) (Auto) 0.0 % Basophils (%) (Auto) 0.1 % Neutrophils # (Auto) 15.27 1.4-6.5 K/uL Lymphocytes # (Auto) 0.29 1.2-3.4 K/uL Monocytes # (Auto) 0.96 0.11-0.59 K/uL Eosinophils # (Auto) 0.00 0-0.5 K/uL Basophils # (Auto) 0.01 0-0.2 K/uL RDW Standard Deviation 59.0 36.4-46.3 fL RDW Coefficient of Variation 16.2 11.5-14.5 % Immature Granulocyte % (Auto) 0.5 % Immature Granulocyte # (Auto) 0.09 0.00-0.02 K/uL Poikilocytosis PRESENT Prothrombin Time 12.5 9.0-12.0 SECONDS Prothromb Time International Ratio 1.2 0.9-1.1 Sodium Level 135 136-145 mmol/L Potassium Level 4.2 3.5-5.1 mmol/L Chloride Level 98 98-107 mmol/L Carbon Dioxide Level 31 21-32 mmol/L Anion Gap 6.0 3-11 mmol/L Blood Urea Nitrogen 17 7-18 mg/dl Creatinine 1.00 0.60-1.40 mg/dl Estimated GFR () 95.1 Estimated GFR (Non- 82.0 BUN/Creatinine Ratio 17.0 10-20 Random Glucose 119 70-99 mg/dl Calcium Level 9.0 8.5-10.1 mg/dl Total Bilirubin 0.6 0.2-1 mg/dl Direct Bilirubin 0.1 0-0.2 mg/dl Aspartate Amino Transf (AST/SGOT) 15 15-37 U/L Alanine Aminotransferase (ALT/SGPT) 20 12-78 U/L Alkaline Phosphatase 78 45-117 U/L Total Protein 6.0 6.4-8.2 gm/dl Albumin 2.7 3.4-5.0 gm/dl Bedside Glucose 138 70-99 mg/dl Diagnostic Radiology CT SCAN OF THE BRAIN WITHOUT IV CONTRAST CLINICAL HISTORY: Change in mental status. Reported history of lung cancer. COMPARISON STUDY: CT of the brain dated 11/10/2016 and 10/31/2016. TECHNIQUE: Unenhanced axial CT scan of the brain is performed from the vertex to the skull base. Automated dose control exposure was utilized. A dose lowering technique was utilized adhering to the principles of ALARA. The patient was scanned twice due to motion artifact which significantly degrades the examination. CT DOSE: 1074.96 mGy.cm FINDINGS: Brain parenchyma: There is mild subcortical and periventricular microangiopathic disease. There is no hemorrhage or evidence of acute territorial ischemia by CT criteria. Foci of edema within the right cerebellar hemisphere and the left frontal white matter are unchanged from previous and consistent with patient's known size of metastatic disease. Mineralization is noted in the basal ganglia. No extra-axial fluid collection is seen. Ventricles, sulci, cisterns: Normal in configuration. Intracranial vasculature: There is atherosclerotic calcification of the cavernous carotid arteries. Calvarium: There are postoperative changes from left sided craniotomy. Sinuses and mastoids: The visualized paranasal sinuses are clear. The mastoid air cells are well pneumatized. Orbits: The bony orbits are grossly intact. IMPRESSION: 1. There is no hemorrhage or evidence of acute territorial ischemia by CT criteria. 2. Foci of edema within the left frontal white matter and the right cerebellar hemisphere have not significantly changed from recent prior studies and are consistent with the patient's known metastatic disease. Electronically signed by: Jose A Hall M.D. 11/13/2016 7:15 AM . Impression Assessment and Plan ALTERED MENTAL STATUS CT without contrast shows previously noted frontal and cerebellar mets. No hemorrhage. Blood alcohol level nondetectable. Urine tox screen negative. ? secondary to meds (e.g., patient has been prescribed Compazine in recent past) . Continue dexamethasone. Cannot do MRI due to pacemaker and recent IVC filter. Consider CT head with contrast if symptoms do not improve. Consider Neuro consult if symptoms do not improve. METASTATIC LUNG CA History and plan as detailed during last hospitalization. Poor prognosis. Palliative care was consulted. Patient does not wish to enroll in hospice at this time. DVT LOWER EXTREMITY Status post Bora filter placement. VTE PROPHYLAXIS No anticoagulants due to brain mets and thrombocytopenia. No mechanical options due to acute DVT. RESUSCITATION STATUS Full code per discussions over past few day. DISPOSITION To be determined. . VTE Prophylaxis Given or contraindicated: Contraindicated
[2016-11-13] MEDS ORDERED: LORAZEPAM 0.5 MG TAB PO PRN (03:45)
[2016-11-13 04:14] LABS: BENZODIAZEPINE, URINE NEG (NEG); COCAINE,URINE NEG (NEG); PHENCYCLIDINE, URINE NEG (NEG)
[2016-11-13 04:25] VITALS: BP 151/102; PULSE 101; TEMP 36.5; O2SAT 94; Ht 167.6 cm; Wt 44.6 kg
[2016-11-13 07:14] VITALS: BP 162/104; PULSE 98; TEMP 36.4; O2SAT 90
--- NOTE | 2016-11-13 07:17 | DIAGNOSTIC IMAGING REPORT ---
CT SCAN OF THE BRAIN WITHOUT IV CONTRAST CLINICAL HISTORY: Change in mental status. Reported history of lung cancer. COMPARISON STUDY: CT of the brain dated 11/10/2016 and 10/31/2016. TECHNIQUE: Unenhanced axial CT scan of the brain is performed from the vertex to the skull base. Automated dose control exposure was utilized. A dose lowering technique was utilized adhering to the principles of ALARA. The patient was scanned twice due to motion artifact which significantly degrades the examination. CT DOSE: 1074.96 mGy.cm FINDINGS: Brain parenchyma: There is mild subcortical and periventricular microangiopathic disease. There is no hemorrhage or evidence of acute territorial ischemia by CT criteria. Foci of edema within the right cerebellar hemisphere and the left frontal white matter are unchanged from previous and consistent with patient's known size of metastatic disease. Mineralization is noted in the basal ganglia. No extra-axial fluid collection is seen. Ventricles, sulci, cisterns: Normal in configuration. Intracranial vasculature: There is atherosclerotic calcification of the cavernous carotid arteries. Calvarium: There are postoperative changes from left sided craniotomy. Sinuses and mastoids: The visualized paranasal sinuses are clear. The mastoid air cells are well pneumatized. Orbits: The bony orbits are grossly intact. IMPRESSION: 1. There is no hemorrhage or evidence of acute territorial ischemia by CT criteria. 2. Foci of edema within the left frontal white matter and the right cerebellar hemisphere have not significantly changed from recent prior studies and are consistent with the patient's known metastatic disease. Electronically signed by: Jose A Hall M.D. 11/13/2016 7:15 AM Dictated Date/Time: 11/13/2016 7:11 AM
[2016-11-13] MEDS: ACETAMINOPHEN 325 MG TAB PO PRN ×2 (07:42→14:12)
[2016-11-13] MEDS: SOTALOL HCL 80 MG TAB PO SCH ×2 (07:43→20:14)
[2016-11-13] MEDS: LISINOPRIL 5 MG TAB PO SCH (07:44)
[2016-11-13] MEDS: MAGNESIUM OXIDE 400 MG TAB PO SCH (07:44)
[2016-11-13] MEDS: CARVEDILOL 12.5 MG TAB PO SCH ×2 (07:44→20:13)
[2016-11-13] MEDS: DEXAMETHASONE 4 MG TAB PO SCH ×2 (07:45→20:13)
[2016-11-13] MEDS: SIMVASTATIN 20 MG TAB PO SCH (07:45)
[2016-11-13] MEDS: LACTOBACILLUS ACIDOPHILUS (FLORANEX) TAB PO SCH ×2 (07:45→20:13)
[2016-11-13] MEDS: FoLIC ACID TAB 400 MCG TAB PO SCH (07:45)
[2016-11-13] MEDS: DOXYCYCLINE HYCLATE 100 MG CAP PO SCH ×2 (07:46→20:13)
[2016-11-13] MEDS: NICOTINE 14 MG/24 HR TDSY TD SCH (07:50)
[2016-11-13 08:00] VITALS: O2SAT 90
[2016-11-13 11:31] VITALS: BP 111/79; PULSE 75; TEMP 36.6; O2SAT 90
--- NOTE | 2016-11-13 12:12 | Progress Note ---
Internal Med Progress Note Date of Service: Nov 13, 2016. Provider Documentation: SUBJECTIVE: The patient was seen and examined in presence of the Brother Discharged yesterday afternoon and admitted with a fall last night/early this morning Took a few more prescription medications -not sure which one Speech is a little garbled this morning Otherwise no symptoms Wants to go home today OBJECTIVE: Vital Signs-as noted below Exam: General-No distress at rest Eyes-normal ENT-noraml Neck-supple Lungs-Decreased breath sound bilaterally Very few crackles Heart-Regular Abdomen-Benign,no masses,bowel sound present Extremities-No edema Neuro-AAOx3 No focal neuro deficit Lab data as noted below. 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 Radiation completed 01/08/2016. Received 4000 cGy. -4 cycles of adjuvant/maintenance Alimta (Dr. Mike) -PET/CT - 08/20/2016 - shows progression of disease -Restarted on Alimta -CT Head - 09/01/2016 - Right cerebellum solitary brain metastasis Status post completion of stereotactic radiation therapy 10/04/2015. He received 3000 cGy in 5 fractions chemotherapy currently on hold secondary to thrombocytopenia. Palliative Care consulted during recent admission Was evaluated by Oncology during recent admission Chronic obstructive pulmonary disease exacerbation. No sepsis. Oxygen administration Has been on oral Doxycycline Acute DVT Right Leg S/P IVC filter placement Chronic systolic heart failure secondary to ischemic cardiomyopathy, EF 35% ( TTE 2013) Patient is euvolemic. Hx PPM Chronic anemia, hemoglobin at baseline. Malnutrition, low BMI. Thrombocytopenia Noted since 12/2015 and even before with a level of ~100 since 2013 S/P Bone marrow Biopsy-result pending Platelet 78 today Ongoing tobacco abuse Past EtOH abuse Nicotine Patch DVT prophylaxis, SCDs for now. RE thrombocytopenia Full code as per patient. Discussed with the Brother Brother will discuss with the family members for possible DNR Vital Signs: Date Time Temp Pulse Resp B/P (MAP) Pulse Ox O2 Delivery O2 Flow Rate FiO2 11/13/16 11:31 36.6 75 20 111/79 (90) 90 Room Air 11/13/16 08:00 90 Room Air 11/13/16 07:14 36.4 98 20 162/104 (123) 90 Room Air 11/13/16 04:25 36.5 101 20 151/102 94 Room Air 11/13/16 04:17 109 22 140/101 94 11/13/16 04:16 109 22 140/101 94 Room Air 11/13/16 01:55 105 14 128/81 92 Room Air 11/13/16 01:24 95 11/13/16 01:21 Room Air 11/13/16 01:12 36.3 94 20 140/103 95 Room Air Lab Results: Results Past 24 Hours Test 11/13/16 00:44 11/13/16 01:33 11/13/16 03:34 11/13/16 03:45 Range/Units White Blood Count 16.62 4.8-10.8 K/uL Red Blood Count 2.72 4.7-6.1 M/uL Hemoglobin 9.4 14.0-18.0 g/dL Hematocrit 27.7 42-52 % Mean Corpuscular Volume 101.8 80-100 fL Mean Corpuscular Hemoglobin 34.6 25-34 pg Mean Corpuscular Hemoglobin Concent 33.9 32-36 g/dl Platelet Count 78 130-400 K/uL Mean Platelet Volume 10.8 7.4-10.4 fL Neutrophils (%) (Auto) 91.9 % Lymphocytes (%) (Auto) 1.7 % Monocytes (%) (Auto) 5.8 % Eosinophils (%) (Auto) 0.0 % Basophils (%) (Auto) 0.1 % Neutrophils # (Auto) 15.27 1.4-6.5 K/uL Lymphocytes # (Auto) 0.29 1.2-3.4 K/uL Monocytes # (Auto) 0.96 0.11-0.59 K/uL Eosinophils # (Auto) 0.00 0-0.5 K/uL Basophils # (Auto) 0.01 0-0.2 K/uL RDW Standard Deviation 59.0 36.4-46.3 fL RDW Coefficient of Variation 16.2 11.5-14.5 % Immature Granulocyte % (Auto) 0.5 % Immature Granulocyte # (Auto) 0.09 0.00-0.02 K/uL Poikilocytosis PRESENT Prothrombin Time 12.5 9.0-12.0 SECONDS Prothromb Time International Ratio 1.2 0.9-1.1 Sodium Level 135 136-145 mmol/L Potassium Level 4.2 3.5-5.1 mmol/L Chloride Level 98 98-107 mmol/L Carbon Dioxide Level 31 21-32 mmol/L Anion Gap 6.0 3-11 mmol/L Blood Urea Nitrogen 17 7-18 mg/dl Creatinine 1.00 0.60-1.40 mg/dl Estimated GFR () 95.1 Estimated GFR (Non- 82.0 BUN/Creatinine Ratio 17.0 10-20 Random Glucose 119 70-99 mg/dl Calcium Level 9.0 8.5-10.1 mg/dl Total Bilirubin 0.6 0.2-1 mg/dl Direct Bilirubin 0.1 0-0.2 mg/dl Aspartate Amino Transf (AST/SGOT) 15 15-37 U/L Alanine Aminotransferase (ALT/SGPT) 20 12-78 U/L Alkaline Phosphatase 78 45-117 U/L Total Protein 6.0 6.4-8.2 gm/dl Albumin 2.7 3.4-5.0 gm/dl Bedside Glucose 138 70-99 mg/dl Ethyl Alcohol mg/dL < 3.0 0-3 mg/dl Urine Opiates Screen NEG NEG Urine Methadone, Qualitative NEG NEG Urine Barbiturates NEG NEG Urine Phencyclidine (PCP) Level NEG NEG Ur Amphetamine/Methamphetamine NEG NEG MDMA (Ecstasy) Screen NEG NEG Urine Benzodiazepines Screen NEG NEG Urine Cocaine Metabolite NEG NEG Urine Marijuana (THC) NEG NEG
[2016-11-13] MEDS: BOOST PLUS VANILLA PO SCH ×4 (14:13→20:00)
[2016-11-13 15:05] VITALS: BP 133/82; PULSE 91; TEMP 36.5; O2SAT 91
[2016-11-13] MEDS ORDERED: OPTIRAY 320 IV PRN (16:15)
--- NOTE | 2016-11-13 16:42 | Radiation Oncology Consult ---
Radiation Oncology Consult Date / Reason Nov 13, 2016. Diagnosis (1) Lung cancer Onset Date: 11/07/2015 Permanent Comment: DIAGNOSIS: Lung, RUL, adenocarcinoma, T3N3Mx, stage IIIB -Status post combined radiation and chemotherapy (carboplatin/alimta). -Radiation completed 01/08/2016. Received 4000 cGy. -4 cycles of adjuvant/maintenance Alimta (Dr. Mike) -PET/CT - 08/20/2016 - shows progression of disease -Restarted on Alimta -CT Head - 09/01/2016 - Right cerebellum solitary brain metastasis -Status post completion of stereotactic radiation therapy 10/03/2016. He received 3000 cGy in 5 fractions -CT Head - 11/10/2016 - Left frontal lobe brain metastasis, response in the right cerebellum -Plan for radiation therapy to left frontal lobe utilizing SRS, chemotherapy on hold due to thrombocytopenia Last Edited By: Miguel Donaldson on Nov 13, 2016 16:20 History of Present Illness I have been asked to evaluate Mr. Arreaga in consultation the request of Dr. Higginbotham in the inpatient setting. The patient did have a 1:1 observer present during the entire examination. ECOG PS: 3 Mr. Arreaga is a 61-year-old patient that is well-known to our service with a history as above. Most recently, the patient was treated with a course of SBRT to the right cerebellar brain metastasis which completed in September 2016. A repeat CT of the head was completed in October 2016 which revealed a new left frontal lobe metastasis. The patient underwent a CT simulation for treatment planning and the plan was to treat the patient with stereotactic radiosurgery within the next week. The patient has had chemotherapy held due to his thrombocytopenia; he follows underneath the supervision of Dr. Rubén Mike for medical oncology. More recently, the patient has been admitted to the hospital due to altered mental status. The patient did undergo a CT of the head without contrast on which revealed no evidence of intracranial hemorrhage. He also had a CT PE Protocol on 11/10/2016 which revealed: "IMPRESSION: 1. Interval evolution of previously noted centrally cavitating anterior right upper lobe mass, which could be compatible with known lung cancer. Although this appears less extensive than prior exam possibly from interval radiation, evidence of an adjacent satellite nodule in the right upper lobe and additional left lower lobe nodule new from prior and concerning for metastatic disease. 2. Interval development of loculated moderate left pleural effusion, which raises concern for pleural spread of disease. 3. Diffuse airway thickening is new from prior and may represent bronchitis/bronchiolitis. Additionally, suspected mucoid impaction of several segmental bronchi in the left lower lobe. 4. Mediastinal and left axillary lymphadenopathy, which is concerning for metastatic disease. 5. Cardiomegaly." He also had a CT of the abdomen/pelvis on 11/10/2016 which revealed: "IMPRESSION: 1. Interval development of potentially septated and/or loculated left basilar effusion with compressive atelectasis of components of the left lower lobe. 2. Possible third order filling defect of a left lower lobe vessel with reference made to a CT angiogram of the chest same date. 3. Unchanging retrocrural node on the right measuring 1.5 cm. 4. Potential developing hepatic metastatic change. 5. Interval development of a somewhat triangular component posterior aspect mid right kidney which potentially represents focal renal infarct versus developing lesion. 6. Nonobstructive bowel pattern. 7. Incidental note is made of potential flow artifact versus developing right inguinal deep venous thrombosis. Venous Doppler is recommended to exclude this possibility." The patient was discharged home at his own request on 11/12/2016. The patient was readmitted to the hospital on 11/13/2016 due to continued altered mental status. Again, the patient is requesting to go home. The patient did have a CT head without contrast on 11/13/2016 which revealed: "IMPRESSION: 1. There is no hemorrhage or evidence of acute territorial ischemia by CT criteria. 2. Foci of edema within the left frontal white matter and the right cerebellar hemisphere have not significantly changed from recent prior studies and are consistent with the patient's known metastatic disease." We were asked to evaluate the patient for the role of radiation therapy. Pacemaker Hx Pacemaker: Yes Past History Past Medical/Surgical History: SC, Pacemaker, Cancer, Heart Disease, COPD Social History Smoking Status: Current Some Day Smoker Hx Tobacco Use In Past Year?: Yes Estimated Cigarettes Per Day: 30 Do You Dip or Chew Tobacco: Yes Hx Alcohol Use: No Hx Substance Use : No Allergies Coded Allergies: Ibuprofen (Verified Allergy, Unknown, ITCHING - BUT TAKES ASA WITHOUT PROBLEM, 11/13/16) Home Medications Scheduled Acetaminophen Tab (Tylenol), 325 MG PO BID Carvedilol (Coreg), 12.5 MG PO BID Dexamethasone (Decadron), 4 MG PO DIRECTED Doxycycline Monohydrate (Monodox), 100 MG PO BID Folic Acid (Folic Acid), 800 MCG PO DAILY Lactobacillus Acidophilus (Lactinex), 2 TABS PO BID Lisinopril (Zestril), 5 MG PO QAM Magnesium Oxide (Mag-Ox), 400 MG PO DAILY Nicotine (Nicotine), 1 PATCH TOP DAILY Simvastatin (Zocor), 20 MG PO QAM Sotalol Hcl (Sotalol Hcl), 1 TAB PO BID Review of Systems Extremities: Hx Deep Vein Thrombosis: No Eyes: Hx Cataracts: No Ear/Hearing: Ear Side: Bilateral Hearing Ability: Normal Hearing Aid: None Edema: Present?: No Location Body Site Modifier: Bilateral Pain Management Side: Left Patient Preferred Pain Scale: 0 - 10 Initial Pain Intensity: 5.0 Physical Exam Height: 5 (Feet) 6.00 (Inches) 167.6 (Centimeters) 1.6764 (Meters) Weight: 104 (Pounds) 15.0 (Ounces) 47.600 (Kilograms) 24417.000 (Grams) Date Time Temp Pulse Resp B/P (MAP) Pulse Ox O2 Delivery O2 Flow Rate FiO2 11/13/16 15:05 36.5 91 19 133/82 (99) 91 Room Air 11/13/16 11:31 36.6 75 20 111/79 (90) 90 Room Air 11/13/16 08:00 90 Room Air 11/13/16 07:14 36.4 98 20 162/104 (123) 90 Room Air 11/13/16 04:25 36.5 101 20 151/102 94 Room Air 11/13/16 04:17 109 22 140/101 94 11/13/16 04:16 109 22 140/101 94 Room Air 11/13/16 01:55 105 14 128/81 92 Room Air 11/13/16 01:24 95 11/13/16 01:21 Room Air 11/13/16 01:12 36.3 94 20 140/103 95 Room Air General Appearance: + mild distress, + thin Head: normocephalic, atraumatic Eyes: normal inspection, PERRL, EOMI ENT: normal ENT inspection Neck: supple, no adenopathy Respiratory/Chest: chest non-tender, lungs clear, normal breath sounds, no respiratory distress Cardiovascular: regular rate, rhythm, no edema, no gallop, no JVD Neurologic/Psych: no motor/sensory deficits, alert, oriented x 3, + facial droop (d) Skin: no rash Laboratory Labortaory Results: were reviewed Pathology Pathology results: were reviewed Imaging Imaging studies: were reviewed Assessment & Recommendations Mr. Arreaga is a 61-year-old woman with metastatic lung cancer to the brain. We have recently evaluated the patient in the outpatient setting for consideration of stereotactic radiosurgery for a left frontal lobe lesion. Most recently, the patient was treated with SBRT to the right cerebellum in September 2016. The patient was previously receiving chemotherapy however it is being held due to severe thrombocytopenia by Dr. Rubén Mike. Unfortunately, the patient was recently admitted to the hospital twice for altered mental status with no evidence of acute intracranial bleed. The patient is requesting to go home at this point as well. We were asked to evaluate the patient for consideration of radiation therapy. At this point, I would not recommend radiation therapy during this patient's inpatient hospitalization. I do not believe that the patient's new left frontal lobe lesion or right cerebellar lesion would be causing his current symptoms including altered mental status and facial droop. I would recommend potentially considering a CT head with contrast and neurology consultation for further workup and evaluation. If the patient is stable and discharged, we will reevaluate him for potential consideration of stereotactic radiosurgery in the outpatient setting. I have already discussed the case with Dr. Higginbotham who is in agreement with the plan. Please call us with any further questions or concerns. Total Time In Consultation I spent 30 minutes examining and counseling the patient. I spent 15 minutes completing this note. EMERGENCY ROOM DOCTOR Copy To Rohan Higginbotham M.D.; Rubén Mike MD
--- NOTE | 2016-11-13 17:20 | DIAGNOSTIC IMAGING REPORT ---
HEAD ANGIO WITH CONTRAST HISTORY: 61 years-old Male history of lung cancer and metastatic disease. Foci of edema within the left frontal and right cerebellar hemispheres were seen on comparison studies. COMPARISON: Head CT of same day and also on 11/10/2016 TECHNIQUE: CT angiography of the head was obtained following the intravenous administration of 90 mL Optiray 320. 3-D coronal and sagittal MIPS were obtained from Date facet and submitted for review. The patient had a complication with the IV catheter and the study was repeated. A dose lowering technique was used consistent with the principals of MATTHEW. FINDINGS: There is mild atherosclerotic plaquing involving the clinoid portions of the internal carotid arteries bilaterally. Bilateral internal carotid arteries are patent and terminate into normal and patent appearing M1 and A1 segments. Anterior to indicating branch and A2 segments are also patent. There is a focal area of apparent high-grade stenosis involving the distal M1 branch just proximal to the trifurcation seen on image 74 of the axial series. The left vertebral artery is dominant. The right vertebral artery terminates into the right PICA. Note is made of origin of the left posterior cerebral artery. The basilar and posterior cerebral arteries are patent. The imaged venous sinuses are also patent. There is no aneurysm or definite proximal branch occlusion identified. Focal area of low attenuation within the left frontal lobe and right cervical or hemisphere are redemonstrated suggesting metastasis without significant enhancement identified. The bones are intact. There are postsurgical changes from prior craniotomy in the left calvarium. IMPRESSION: 1. Focal area of high-grade narrowing of the distal left M1 branch, just proximal to the trifurcation is noted without evidence of associated territorial ischemia or hemorrhage. 2. No definite proximal branch occlusion or aneurysm identified. 3. Incidental note is made of the right vertebral artery terminating into the ipsilateral PICA. There is origin of the left posterior cerebral artery. 4. Focal areas of low-attenuation within the left frontal lobe and right cerebellar hemisphere are redemonstrated suggesting metastasis without associated significant enhancement or midline shift. The above report was generated using voice recognition software. It may contain grammatical, syntax or spelling errors. Electronically signed by: Darnell Rivas M.D. 11/13/2016 5:18 PM Dictated Date/Time: 11/13/2016 5:10 PM
--- NOTE | 2016-11-13 17:48 | CONSULTATION REPORT ---
DATE OF CONSULTATION: 11/13/2016 REFERRING PHYSICIAN: Dr. Higginbotham. HISTORY OF PRESENT ILLNESS: Joaquim is 61 years old, is a patient of Dr. Lea in [place] and knows Dr. 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 His disease has progressed despite chemotherapy and radiation therapy. He was admitted to this hospital between 11/10/2016 and 11/11/2013 and was then sent home, but then returned with increasing confusion. He had been admitted with lower extremity DVT, but could not be anticoagulated due to the presence of his brain mets and thrombocytopenia. It was recommended that he be enrolled in palliative care, but apparently he is not enthusiastic about this, but became very confused without apparent fever, there was no head injury and he was brought to the ER and is now up on the floor. Unfortunately, no family members are present, so we are relying totally on the history as outlined. Laboratory studies and imaging studies have been reviewed and are well documented on the prior notes. Neurology has been called I suppose for evaluation of his confusional state and see if we have any further suggestions for treatment. Imaging studies have shown evidence for right cerebellar metastases and a left frontal metastases with surrounding edema, but apparently the images are stable and I have reviewed them and agree. He has had stereotactic radiation to the brain up to this point. Other problems aside lung cancer include a cardiac pacemaker which does prevent MRI scanning. FAMILY HISTORY: Reveals coronary artery disease in his mother, cancer in his father. SOCIAL HISTORY: Reveals him to be a current smoker. He is single. He lives with his family. He is disabled. ALLERGIES: HE HAS ALLERGIES TO IBUPROFEN WHICH CAUSES ITCHING. CURRENT MEDICATIONS: Include acetaminophen, Coreg, dexamethasone, doxycycline, folic acid, lactobacillus, lisinopril, magnesium oxide, nicotine, simvastatin and sotalol. He has not been on anticonvulsants and no seizure activity has apparently been recorded clinically. REVIEW OF SYSTEMS: Could not be obtained from the patient today. No family members were present and I refer the reader to the recorded history and physicals on the chart. PHYSICAL EXAMINATION: On admission VITAL SIGNS: His blood pressure 128/81, pulse was 105, respirations were 14. GENERAL: He was cachectic appearing male. HEENT: No cranial deformities. NECK: No carotid bruits were heard. LUNGS: Were clear. HEART: Had a regular rate and rhythm. He had a pacemaker in place. EXTREMITIES: His extremities were wasted. NEUROLOGIC: Was described as upset and dysarthric with a possible general expressive aphasia and a generalized weakness. Today, he is lying on his side, there is a right upper motor neuron facial paresis, perhaps a little more clumsiness of the right hand. He is in a position. He responds to questions, with repetitious, stereotypic phrasing and will follow a few commands. He has no nuchal rigidity. He seems to withdraw extremities equally well to pain. I think the toe sign on the right is extensor, but it is very difficult to get a good examination as he does move about and withdraws. Reflexes are present, but difficult to assess and sensory examination really cannot be performed. At this point, I certainly cannot exclude ongoing partial seizures as an explanation for his stereotypic repetitive phrasing and confusional state, but I do not see any focal motor activity and in lieu I am not going to empirically start him on anticonvulsants. I am going to get an EEG in the morning. If indeed he begins to show clear evidence for seizures, then we would start him on some Keppra at 500 mg twice a day either intravenously or orally if he can take it. Keyana Bullock and I will around tomorrow to reassess him and I will be looking at the EEG tomorrow assuming it will be done in the morning. OMAR
[2016-11-13 20:16] VITALS: BP 155/90; PULSE 89; TEMP 36.5; O2SAT 92
[2016-11-13] MEDS: LEVETIRACETAM 500 MG TAB PO SCH (20:32)
[2016-11-14] VITALS (8 sets, daily range): BP systolic 111–143; BP diastolic 59–94; PULSE 79–95; TEMP 36.3–36.8; O2SAT 89–97
[2016-11-14] MEDS: ACETAMINOPHEN 325 MG TAB PO PRN ×3 (05:49→18:44)
[2016-11-14] MEDS: SIMVASTATIN 20 MG TAB PO SCH (08:00)
[2016-11-14] MEDS: LISINOPRIL 5 MG TAB PO SCH (08:00)
[2016-11-14] MEDS: NICOTINE 14 MG/24 HR TDSY TD SCH (08:00)
[2016-11-14] MEDS: LEVETIRACETAM 500 MG TAB PO SCH (08:00)
[2016-11-14] MEDS: DEXAMETHASONE 4 MG TAB PO SCH ×2 (08:01→19:35)
[2016-11-14] MEDS: FoLIC ACID TAB 400 MCG TAB PO SCH (08:01)
[2016-11-14] MEDS: LACTOBACILLUS ACIDOPHILUS (FLORANEX) TAB PO SCH ×2 (08:01→19:36)
[2016-11-14] MEDS: MAGNESIUM OXIDE 400 MG TAB PO SCH (08:01)
[2016-11-14] MEDS: SOTALOL HCL 80 MG TAB PO SCH ×2 (08:01→19:35)
[2016-11-14] MEDS: DOXYCYCLINE HYCLATE 100 MG CAP PO SCH ×2 (08:01→19:34)
[2016-11-14] MEDS: CARVEDILOL 12.5 MG TAB PO SCH ×2 (08:01→19:35)
[2016-11-14] MEDS: BOOST PLUS VANILLA PO SCH ×6 (08:03→19:31)
--- NOTE | 2016-11-14 10:28 | ELECTROENCEPHALOGRAPH REPORT ---
REQUESTING: Dr. Chaves. CLINICAL DIAGNOSIS: Metastatic lung CA with increasing confusion and aphasia and diminished responsiveness, question focal seizure activity left hemisphere. EEG DIAGNOSIS: Abnormal EEG was very subtle increased slow wave activity left hemisphere, maximum frontocentral during wakefulness. DESCRIPTION OF TRACING: This EEG was done as a bedside recording and was of good technical quality with few or no muscle or movement artifacts. Simultaneous video analysis of patient movement and behavior was obtained. Photic stimulation was performed. Hyperventilation was not. Drowsiness and light sleep were not seen. Under these conditions, there is evidence for normal appearing background rhythm in the alpha range of up to 9 Hz of maximum frequency and 30 microvolts of maximum amplitude. This is maximum posterior head regions bilaterally symmetrical. Polymorphic mid to slightly lower frequency theta activity is seen over all head regions with predominance in the left frontal area where the frequency shifted slightly downwards and the amplitude is a little higher. Occasional isolated waveforms in the delta range were seen and at times there is a rhythmic quality to the theta in the left, it is not that evident on the right but these differences are subtle and there is no clear evidence for potentially epileptogenic activity in the form of focal spikes, polyspikes, sharp waves, etc. Beta activity is seen bifrontally in a symmetrical fashion. Photic stimulation provokes a minimal driving response without photomyogenic or photoparoxysmal component. At no time during his tracing as noted above is there evidence for potentially epileptogenic activity in the form of polyspike or spike wave bursts, focal sharp waves or focal spikes. INTERPRETATION: This EEG is abnormal in a focal fashion with slow wave activity being the predominant abnormality. This certainly correlates with the known structural disease in this area but in and of itself is not clearly potentially epileptogenic. The absence of small focal sharp waves in this area does not exclude the diagnosis of seizure disorder and clinical is required. MTDD
--- NOTE | 2016-11-14 10:34 | Clinical Documentation Query ---
Dr. [facility] : CLINICAL DOCUMENTATION QUERIES QUERY 1 OF 2 Patient is a 61 year old male admitted for evaluation and treatment of an alteration in mental status in the setting of NSCLCA with brain, skeletal and possible liver metastasis. Noted confusion and difficulty speaking. Concern by family of misuse of prescription medications. As appropriate, consider documentation as suggested below as this impacts DRG assignment. Thank you. In your clinical opinion is this patient being managed for: ( + ) Encephalopathy secondary to medications and/or intracerebral metastasis ( ) Other explanation of clinical findings (Please Explain) ( ) Unable to determine (Please Define) ( ) Need to Discuss ( ) Not Agree The medical record reflects the following clinical findings, treatment, and risk factors. Clinical Indicators: As above Treatment: Dexamethasone, urine and blood toxicology, neurology consultation, CT of head Risk Factors: Intracranial metastasis, accidental/intentional drug misuse QUERY [address] scan of the head read to include "Foci of edema within the right cerebellar hemisphere and the left frontal white matter are unchanged from previous and consistent with patient's known size of metastatic disease". He has been seen in consultation by neurology, has been started on Keppra, and is also being treated with Decadron. As appropriate, consider documentation as below. In your clinical opinion is this patient being managed for: ( + ) Cerebral edema ( ) Other explanation of clinical findings (Please Explain) ( ) Unable to determine (Please Define) ( ) Need to Discuss ( ) Not Agree The medical record reflects the following clinical findings, treatment, and risk factors. Clinical Indicators: As above Treatment:He has been seen in consultation by neurology, has been started on Keppra, and is also being treated with Decadron Risk Factors: Metastatic intracerebal cancer Please clarify and document your clinical opinion in the progress notes and discharge summary. Terms such as "probable", "suspected", "likely", "questionable", "possible", or "still to be ruled out" are acceptable. IF IN AGREEMENT, YOU MUST DOCUMENT ABOVE DIAGNOSTIC STATEMENT IN DAILY PROGRESS NOTES AND DISCHARGE SUMMARY. This document is not part of the patient's record. Thank You, Luis Grove RN [phone] clarify and document your clinical opinion in the progress notes and discharge summary. Terms such as "probable", "suspected", "likely", "questionable", "possible", or "still to be ruled out" are acceptable. IF IN AGREEMENT, YOU MUST DOCUMENT ABOVE DIAGNOSTIC STATEMENT IN DAILY PROGRESS NOTES AND DISCHARGE SUMMARY. This document is not part of the patient's record. Thank You, Luis Grove, REAGAN [phone]
--- NOTE | 2016-11-14 10:45 | Progress Note ---
Internal Med Progress Note Date of Service: Nov 14, 2016. Provider Documentation: SUBJECTIVE: The patient was seen and examined in presence of the Brother Discharged yesterday afternoon and admitted with a fall last night/early this morning Took a few more prescription medications -not sure which one Speech is a little garbled this morning Otherwise no symptoms Much better this morning Minimal right facial droop No weakness in extremities OBJECTIVE: Vital Signs-as noted below Exam: General-Minimal distress at rest Eyes-normal ENT-normal Neck-supple Lungs-Decreased breath sound bilaterally Very few crackles bilaterally Heart-Regular Abdomen-Benign,no masses,bowel sound present Extremities-No edema Neuro-AAOx3 No focal neuro deficit Lab data as noted below. ASSESSMENT & PLAN: Stroke Like symptoms Happened to be yesterday Was seen by the Neurologist CTA of the brain -no definite stroke EEG-negative for any epileptiform activity Keppra stopped Symptoms resolved Encephalopathy secondary to medications and/or intracerebral metastasis May be contributed by mild Cerebral Edema Change In Mental Status Has Ca of the Lung with brain Mets Was discharged home yesterday following a short stay due to bronchitis Differentials-Due to progress of the cancer,use of sedative /antihistamine or even due to Steroid No new lesion on CT scan will continue Dexamethasone for now Wsa seen by Radiation Oncology-no radiation at this time Stage IV NSCLC with intrathoracic and brain metastases, Possibly evolving metastasis to the liver by imaging during this hospitalization Complicating COPD exacerbation during recent admission Status post combined radiation and chemotherapy (carboplatin/alimta). Radiation completed 01/08/2016. Received 4000 cGy. -4 cycles of adjuvant/maintenance Alimta (Dr. Mike) -PET/CT - 08/20/2016 - shows progression of disease -Restarted on Alimta -CT Head - 09/01/2016 - Right cerebellum solitary brain metastasis Status post completion of stereotactic radiation therapy 10/04/2015. He received 3000 cGy in 5 fractions chemotherapy currently on hold secondary to thrombocytopenia. Palliative Care consulted during recent admission Was evaluated by Oncology during recent admission Discussed with the Oncologist-wanted to go for [facility] Chronic obstructive pulmonary disease exacerbation. No sepsis. Oxygen administration Has been on oral Doxycycline Acute DVT Right Leg S/P IVC filter placement Chronic systolic heart failure secondary to ischemic cardiomyopathy, EF 35% ( TTE 2013) Patient is euvolemic. Hx PPM Chronic anemia, hemoglobin at baseline. Malnutrition, low BMI. Thrombocytopenia Noted since 12/2015 and even before with a level of ~100 since 2013 S/P Bone marrow Biopsy-result pending Platelet 78 today Ongoing tobacco abuse Past EtOH abuse Nicotine Patch DVT prophylaxis, SCDs for now. RE thrombocytopenia Full code as per patient. Discussed with the Brother Brother will discuss with the family members for possible DNR Discussed with the Brother and the patient Patient still wants to have Full code Will continue current medication Vital Signs: Date Time Temp Pulse Resp B/P (MAP) Pulse Ox O2 Delivery O2 Flow Rate FiO2 11/14/16 10:58 36.4 79 20 132/87 (102) 93 Room Air 11/14/16 08:30 93 Room Air 11/14/16 06:49 36.3 95 22 143/94 (110) 93 Room Air 11/14/16 04:04 36.6 89 18 142/89 (106) 92 Room Air 11/14/16 00:27 36.8 88 18 115/76 (89) 93 Room Air 11/14/16 00:00 Room Air 11/13/16 20:16 36.5 89 19 155/90 (111) 92 Room Air 11/13/16 16:00 Room Air 11/13/16 15:05 36.5 91 19 133/82 (99) 91 Room Air
--- NOTE | 2016-11-14 13:37 | Neurology Progress Notes ---
Neurology Progress Note Date of Service Nov 14, 2016. 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 his disease has progressed despite chemo and radiation therapy. On he had a LE DVT and had a IVC filter placed. he then presented one day later with increased confusion. CT head did not show an acute hemorrhage. A EEG was done this no epileptic waves noted. he keeps repeating he wants to go home. Objective Date Time Temp Pulse Resp B/P (MAP) Pulse Ox O2 Delivery O2 Flow Rate FiO2 11/14/16 10:58 36.4 79 20 132/87 (102) 93 Room Air 11/14/16 08:30 93 Room Air 11/14/16 06:49 36.3 95 22 143/94 (110) 93 Room Air 11/14/16 04:04 36.6 89 18 142/89 (106) 92 Room Air 11/14/16 00:27 36.8 88 18 115/76 (89) 93 Room Air 11/14/16 00:00 Room Air 11/13/16 20:16 36.5 89 19 155/90 (111) 92 Room Air 11/13/16 16:00 Room Air 11/13/16 15:05 36.5 91 19 133/82 (99) 91 Room Air no new labs Imaging: no new imaging Exam: pleasant but does not follow commands very thin and pale moving all extremities spontaneously but does not squeeze with hand on command drinking from cup with no difficulties Current Inpatient Medications Medications (Trade) Dose Ordered Sig/Claude Route Start Time Stop Time Status Last Admin Dose Admin Acetaminophen (Tylenol Tab) 650 mg Q4H PRN PO 11/13/16 03:45 12/13/16 03:44 11/14/16 05:49 650 MG Carvedilol (Coreg Tab) 12.5 mg BID PO 11/13/16 08:00 12/13/16 08:59 11/14/16 08:01 12.5 MG Dexamethasone (Decadron Tab) 4 mg BID PO 11/13/16 08:00 12/13/16 08:59 11/14/16 08:01 4 MG Doxycycline Hyclate (Vibramycin Cap) 100 mg BID PO 11/13/16 08:00 11/20/16 08:59 11/14/16 08:01 100 MG Folic Acid (Folvite Tab) 800 mcg DAILY PO 11/13/16 08:00 12/13/16 08:59 11/14/16 08:01 800 MCG Lactobacillus Acidophilus (Floranex Tab) 2 tab BID PO 11/13/16 08:00 12/13/16 08:59 11/14/16 08:01 2 TAB Lisinopril (Zestril Tab) 5 mg QAM PO 11/13/16 08:00 12/13/16 08:59 11/14/16 08:00 5 MG Magnesium Oxide (Mag-Ox Tab) 400 mg DAILY PO 11/13/16 08:00 12/13/16 08:59 11/14/16 08:01 400 MG Nicotine (Nicoderm Cq 14MG Patch) 1 patch DAILY TD 11/13/16 08:00 12/13/16 08:59 Simvastatin (Zocor Tab) 20 mg QAM PO 11/13/16 08:00 12/13/16 08:59 11/14/16 08:00 20 MG Sotalol HCl (Betapace Tab) 80 mg BID PO 11/13/16 08:00 12/13/16 08:59 11/14/16 08:01 80 MG Miscellaneous (Remove Nicoderm Patch) 1 ea HS N/A 11/13/16 21:00 12/13/16 20:59 Enteral Nutritional Formula (Boost Plus Vanilla) 1 can TID PO 11/13/16 14:00 12/13/16 13:59 11/14/16 08:03 1 CAN Ioversol (Optiray 320) 100 ml UD PRN IV 11/13/16 16:15 11/17/16 16:14 Impression 61 year old with end stage metastatic disease Plan 1. EEG with no epileptic waves captured but does not r/o seizure activity 2. home with hospice 3. start keppra 250 mg BID x 2 weeks, then increase to Keppra 500 mg BID 4. call with questions concerns. I have seen and discussed above patient with Dr Adria Chaves, neurology see my [id number] note agree with need to start Keppra here as risk for seizures is high and description of the event today by family is also suggestive eeg results not revealing of seizure activity but this is not a necessary abnormaility to have in this clinical setting and the study does show focal dysfunction iin the left hemisphere Adria Chaves MD
--- NOTE | 2016-11-14 15:30 | PROGRESS NOTE ---
DATE: 11/14/2016 DATE: 11/14/2016 I saw Joaquim today, he is much more awake, alert. He still is pretty densely aphasic, has a lot of word finding deficits and according to his family who are present, this is baseline. I reviewed his case with Keyana Bullock PA-C, and agree with her notes. The EEG shows some slow wave activity over the left hemisphere which would not be unexpected in light of the fact that he has metastatic deposit there. History I reviewed with I assume his brother suggests that there may have been some seizure activity at the onset of this event as he does describe some tonic movements of the right arm and frankly this man is at such high risk that I think empirically treating him with Keppra is a good idea and we are going to start him on 250 twice a day and move this up in 2 weeks to 500 twice a day as per Keyana Bullock's note. MTDD
[2016-11-14] MEDS: LEVETIRACETAM 250 MG TAB PO SCH (19:36)
[2016-11-15 00:33] VITALS: O2SAT 92
[2016-11-15] MEDS: ACETAMINOPHEN 325 MG TAB PO PRN ×2 (04:07→08:41)
[2016-11-15] MEDS: FoLIC ACID TAB 400 MCG TAB PO SCH (07:36)
[2016-11-15] MEDS: LEVETIRACETAM 250 MG TAB PO SCH (07:37)
[2016-11-15] MEDS: DOXYCYCLINE HYCLATE 100 MG CAP PO SCH (07:37)
[2016-11-15] MEDS: SIMVASTATIN 20 MG TAB PO SCH (07:37)
[2016-11-15] MEDS: LACTOBACILLUS ACIDOPHILUS (FLORANEX) TAB PO SCH (07:37)
[2016-11-15] MEDS: DEXAMETHASONE 4 MG TAB PO SCH (07:37)
[2016-11-15] MEDS: SOTALOL HCL 80 MG TAB PO SCH (07:37)
[2016-11-15] MEDS: LISINOPRIL 5 MG TAB PO SCH (07:37)
[2016-11-15] MEDS: BOOST PLUS VANILLA PO SCH ×2 (07:38)
[2016-11-15] MEDS: MAGNESIUM OXIDE 400 MG TAB PO SCH (07:38)
[2016-11-15] MEDS: NICOTINE 14 MG/24 HR TDSY TD SCH (07:38)
[2016-11-15] MEDS: CARVEDILOL 12.5 MG TAB PO SCH (07:39)
[2016-11-15 08:00] VITALS: O2SAT 90
[2016-11-15 08:06] VITALS: BP 115/84; PULSE 93; TEMP 36.8; O2SAT 90
--- NOTE | 2016-11-15 10:37 | Progress Note ---
Internal Med Progress Note Date of Service: Nov 15, 2016. Provider Documentation: SUBJECTIVE: The patient was seen and examined in presence of the Brother Discharged on 11/14/16 afternoon and admitted with a fall last night/early this morning Took a few more prescription medications -not sure which one Has had Stroke like symptoms and probable seizure like activities Was moved to 281 for 1 to 1 requirement OBJECTIVE: Vital Signs-as noted below Exam: General-Minimal distress at rest Eyes-normal ENT-normal Neck-supple Lungs-Decreased breath sound bilaterally Very few crackles bilaterally Heart-Regular Abdomen-Benign,no masses,bowel sound present Extremities-No edema Neuro-AAOx3 No focal neuro deficit Lab data as noted below. ASSESSMENT & PLAN: Stroke Like symptoms Happened to be yesterday Was seen by the Neurologist CTA of the brain -no definite stroke EEG-negative for any epileptiform activity Keppra stopped and restarted again as prophylaxis Occasional Agitation Moved to 182 for 1 to 1 sitter requirement Encephalopathy secondary to medications and/or intracerebral metastasis May be contributed by mild Cerebral Edema Change In Mental Status Has Ca of the Lung with brain Mets Was discharged home yesterday following a short stay due to bronchitis Differentials-Due to progress of the cancer,use of sedative /antihistamine or even due to Steroid No new lesion on CT scan will continue Dexamethasone for now Was seen by Radiation Oncology-no radiation at this time due to acute events Will increase Decadron to TID Stage IV NSCLC with intrathoracic and brain metastases, Possibly evolving metastasis to the liver by imaging during this hospitalization Complicating COPD exacerbation during recent admission Status post combined radiation and chemotherapy (carboplatin/alimta). Radiation completed 01/08/2016. Received 4000 cGy. -4 cycles of adjuvant/maintenance Alimta (Dr. Mike) -PET/CT - 08/20/2016 - shows progression of disease -Restarted on Alimta -CT Head - 09/01/2016 - Right cerebellum solitary brain metastasis Status post completion of stereotactic radiation therapy 10/04/2015. He received 3000 cGy in 5 fractions chemotherapy currently on hold secondary to thrombocytopenia. Palliative Care consulted during recent admission Was evaluated by Oncology during recent admission Discussed with the Oncologist-wanted to go for Hospice acre Chronic obstructive pulmonary disease exacerbation. No sepsis. Oxygen administration Has been on oral Doxycycline Acute DVT Right Leg S/P IVC filter placement Chronic systolic heart failure secondary to ischemic cardiomyopathy, EF 35% ( TTE 2013) Patient is euvolemic. Hx PPM Chronic anemia, hemoglobin at baseline. Malnutrition, low BMI. Thrombocytopenia Noted since 12/2015 and even before with a level of ~100 since 2013 S/P Bone marrow Biopsy-result pending Platelet 78 today Ongoing tobacco abuse Past EtOH abuse Nicotine Patch DVT prophylaxis, SCDs for now. RE thrombocytopenia Full code as per patient. Discussed with the Brother Brother will discuss with the family members for possible DNR Discussed with the Brother and the patient Patient still wants to have Full code Will continue current medication Will discuss again for possible Discharge home with Home Hospice Vital Signs: Date Time Temp Pulse Resp B/P (MAP) Pulse Ox O2 Delivery O2 Flow Rate FiO2 11/15/16 08:06 36.8 93 18 115/84 (94) 90 Room Air 11/15/16 08:00 90 Room Air 11/15/16 00:33 92 Room Air 11/14/16 23:51 36.6 80 18 111/59 (76) 89 Room Air 11/14/16 20:00 Room Air 11/14/16 16:15 97 Room Air 11/14/16 15:26 36.3 92 24 113/76 (88) 97 Room Air 11/14/16 10:58 36.4 79 20 132/87 (102) 93 Room Air
[2016-11-15] MEDS ORDERED: KPP250 PO (12:37)
--- NOTE | 2016-11-15 12:38 | Discharge Instructions ---
Discharge Instructions Date of Service Nov 15, 2016. Admission Reason for Admission: Altered Mental Status, Lung Cancer Discharge Discharge Diagnosis / Problem: Change in Mental Status,Ca lung with Brain Metastases Discharge Goals Goal(s): Prevent Disease Progression Activity Recommendations Activity Limitations: resume your previous activity . Instructions / Follow-Up Instructions / Follow-Up Dr Lea on 11/18/16 at 2:05PM.Please keep appointment with your Oncologist Current Hospital Diet Patient's current hospital diet: Regular Diet Discharge Diet Recommended Diet: Regular Diet Pending Studies Studies pending at discharge: no Medical Emergencies . Who to Call and When: Medical Emergencies: If at any time you feel your situation is an emergency, please call 911 immediately. . Non-Emergent Contact Non-Emergency issues call your: Primary Care Provider . Past History Medical & Surgical History: (1) Cavitating mass in right upper lung lobe (2) Malignant neoplasm metastatic to brain (3) Altered mental status (4) Lung cancer (5) Pacemaker (6) DVT (deep venous thrombosis) . "Provider Documentation" section prepared by Rohan Higginbotham. . VTE Core Measure Inpt VTE Proph given/why not?: SCD's, Contraindicated
[2016-11-15 12:46] VITALS: BP 115/84; PULSE 93; TEMP 36.8; O2SAT 90
[2016-11-15] MEDS ORDERED: MAGN400T6 PO (13:29)
[2016-11-15] MEDS ORDERED: SOTA80TA PO (13:37)
[2016-11-15] MEDS ORDERED: DEXAMETHASONE 4 MG TAB PO SCH (14:00)
[2016-11-15] MEDS ORDERED: CRG125 PO (21:38)
[2016-11-15] MEDS ORDERED: SIMV-151 PO (21:38)
[2016-11-15] MEDS ORDERED: FOLI800T17 PO (21:38)
[2016-11-15] MEDS ORDERED: CMP/10 PO (21:38)
[2016-11-15] MEDS ORDERED: ULT50 PO (21:38)
[2016-11-15] MEDS ORDERED: LSN5 PO (21:38)
[2016-11-15] MEDS ORDERED: IPRA1AER2 INH (21:47)
[2016-11-15] MEDS ORDERED: SPRIN/30 INH (21:47)
--- NOTE | 2016-11-16 07:36 | Discharge Summary ---
Discharge Summary Date of Service Nov 16, 2016. Discharge Summary Admission Date: Nov 13, 2016 at 03:51 Discharge Date: Nov 15, 2016 Discharge Disposition: Home Principal Diagnosis: Change in Mental Status,Ca lung with Brain Metastases Secondary Diagnoses/Problems: Please see H&P and Hospital Progress note Consultations: Neurology and Radiation Oncology Medication Reconciliation New Medications: Levetiractam (Keppra) 250 Mg Tab 250 MG PO BID for 30 Days, #30 250mg BID for 7 days and then 500mg BID Continued Medications: Magnesium Oxide (Mag-Ox) 400 Mg Tab 400 MG PO DAILY, TAB Sotalol Hcl (Sotalol Hcl) 80 Mg Tab 80 MG PO BID, TAB Admission Information HPI (per Admitting provider): 61 YO male followed by Dr. Lea for FM and Dr. Mike for Medical Oncology. 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 Disease has progressed despite chemotherapy and radiation therapy. Presented to ED 11/10 with lower extremity DVT. Could not be anticoagulated due to brain mets and thrombocytopenia. IVC filter placed. Seen in consultation by Medical Oncology. Functional status poor. No further therapies recommended. Palliative care consultation requested. Discharged to home yesterday afternoon. Tonight his family noted that he was very confused and had difficulty speaking. No apparent fever. No apparent head injury. There was concern that he may have inadvertently taken an old med or an extra dose of one of his current meds, but patient could not be specific. He was brought to ED for evaluation. Patient was very upset at time of my assessment because he wished to be discharged to home. He denied headache, fever, cough, SOB, nausea, vomiting, or other problems. Past Medical/Surgical History Medical Problems: (1) Lung cancer Permanent Comment: DIAGNOSIS: Lung, RUL, adenocarcinoma, T3N3Mx, stage IIIB -Status post combined radiation and chemotherapy (carboplatin/alimta). -Radiation completed 01/08/2016. Received 4000 cGy. -4 cycles of adjuvant/maintenance Alimta (Dr. Mike) -PET/CT - 08/20/2016 - shows progression of disease -Restarted on Alimta -CT Head - 09/01/2016 - Right cerebellum solitary brain metastasis Status post completion of stereotactic radiation therapy 10/04/2015. He received 3000 cGy in 5 fractions Status: Chronic (2) Pacemaker Status: Chronic Family History FH: CAD (coronary artery disease) MOTHER FH: cancer FATHER (type unknown) Social History Smoking Status: Current Some Day Smoker Drug Use: none Marital Status: single Housing status: lives with family Occupational Status: disabled Immunizations History of Influenza Vaccine: Unknown History of Tetanus Vaccine?: Unknown History of Pneumococcal: Unknown History of Hepatitis B Vaccine: Unknown Multi-Drug Resistant Organisms History of MDRO: No Allergies Coded Allergies: Ibuprofen (Verified Allergy, Unknown, ITCHING - BUT TAKES ASA WITHOUT PROBLEM, 11/13/16) Home Medications Scheduled Acetaminophen Tab (Tylenol), 325 MG PO BID Carvedilol (Coreg), 12.5 MG PO BID Dexamethasone (Decadron), 4 MG PO DIRECTED Doxycycline Monohydrate (Monodox), 100 MG PO BID Folic Acid (Folic Acid), 800 MCG PO DAILY Lactobacillus Acidophilus (Lactinex), 2 TABS PO BID Lisinopril (Zestril), 5 MG PO QAM Magnesium Oxide (Mag-Ox), 400 MG PO DAILY Nicotine (Nicotine), 1 PATCH TOP DAILY Simvastatin (Zocor), 20 MG PO QAM Sotalol Hcl (Sotalol Hcl), 1 TAB PO BID Review of Systems As noted above in HPI. . Physical Ex - H&P Physical Exam Vital Signs Date Time Temp Pulse Resp B/P (MAP) Pulse Ox O2 Delivery O2 Flow Rate FiO2 11/13/16 01:55 105 14 128/81 92 Room Air 11/13/16 01:24 95 11/13/16 01:21 Room Air 11/13/16 01:12 36.3 94 20 140/103 95 Room Air General Appearance: + mild distress, + cachetic Head: normocephalic, atraumatic Eyes: PERRL, EOMI, sclerae normal ENT: hearing grossly normal Neck: supple, thyroid normal, trachea midline Respiratory/Chest: no respiratory distress, no accessory muscle use, + wheezing Cardiovascular: regular rate, rhythm, no gallop, no JVD, + pertinent finding ( left infraclavicular pacemaker; right infraclavicular vascular access port; trace pretibial edema, no calf tenderness) Abdomen/GI: normal bowel sounds, non tender, soft, no organomegaly, no pulsatile mass Extremities/Musculoskelatal: no calf tenderness, no pedal edema Neurologic/Psych: + pertinent finding (upset, dysarthric, ? expressive aphasia ; genearlized motor weakness; plantar reflexes equivocal bilaterally) Skin: normal color, warm/dry, no rash, + pertinent finding (1 cm nodular mass right upper back) Diagnostics - H&P Diagnostics Laboratory Results Results Past 24 Hours Test 11/13/16 00:44 11/13/16 01:33 11/13/16 03:34 Range/Units White Blood Count 16.62 4.8-10.8 K/uL Red Blood Count 2.72 4.7-6.1 M/uL Hemoglobin 9.4 14.0-18.0 g/dL Hematocrit 27.7 42-52 % Mean Corpuscular Volume 101.8 80-100 fL Mean Corpuscular Hemoglobin 34.6 25-34 pg Mean Corpuscular Hemoglobin Concent 33.9 32-36 g/dl Platelet Count 78 130-400 K/uL Mean Platelet Volume 10.8 7.4-10.4 fL Neutrophils (%) (Auto) 91.9 % Lymphocytes (%) (Auto) 1.7 % Monocytes (%) (Auto) 5.8 % Eosinophils (%) (Auto) 0.0 % Basophils (%) (Auto) 0.1 % Neutrophils # (Auto) 15.27 1.4-6.5 K/uL Lymphocytes # (Auto) 0.29 1.2-3.4 K/uL Monocytes # (Auto) 0.96 0.11-0.59 K/uL Eosinophils # (Auto) 0.00 0-0.5 K/uL Basophils # (Auto) 0.01 0-0.2 K/uL RDW Standard Deviation 59.0 36.4-46.3 fL RDW Coefficient of Variation 16.2 11.5-14.5 % Immature Granulocyte % (Auto) 0.5 % Immature Granulocyte # (Auto) 0.09 0.00-0.02 K/uL Poikilocytosis PRESENT Prothrombin Time 12.5 9.0-12.0 SECONDS Prothromb Time International Ratio 1.2 0.9-1.1 Sodium Level 135 136-145 mmol/L Potassium Level 4.2 3.5-5.1 mmol/L Chloride Level 98 98-107 mmol/L Carbon Dioxide Level 31 21-32 mmol/L Anion Gap 6.0 3-11 mmol/L Blood Urea Nitrogen 17 7-18 mg/dl Creatinine 1.00 0.60-1.40 mg/dl Estimated GFR () 95.1 Estimated GFR (Non- 82.0 BUN/Creatinine Ratio 17.0 10-20 Random Glucose 119 70-99 mg/dl Calcium Level 9.0 8.5-10.1 mg/dl Total Bilirubin 0.6 0.2-1 mg/dl Direct Bilirubin 0.1 0-0.2 mg/dl Aspartate Amino Transf (AST/SGOT) 15 15-37 U/L Alanine Aminotransferase (ALT/SGPT) 20 12-78 U/L Alkaline Phosphatase 78 45-117 U/L Total Protein 6.0 6.4-8.2 gm/dl Albumin 2.7 3.4-5.0 gm/dl Bedside Glucose 138 70-99 mg/dl Diagnostic Radiology CT SCAN OF THE BRAIN WITHOUT IV CONTRAST CLINICAL HISTORY: Change in mental status. Reported history of lung cancer. COMPARISON STUDY: CT of the brain dated 11/10/2016 and 10/31/2016. TECHNIQUE: Unenhanced axial CT scan of the brain is performed from the vertex to the skull base. Automated dose control exposure was utilized. A dose lowering technique was utilized adhering to the principles of ALARA. The patient was scanned twice due to motion artifact which significantly degrades the examination. CT DOSE: 1074.96 mGy.cm FINDINGS: Brain parenchyma: There is mild subcortical and periventricular microangiopathic disease. There is no hemorrhage or evidence of acute territorial ischemia by CT criteria. Foci of edema within the right cerebellar hemisphere and the left frontal white matter are unchanged from previous and consistent with patient's known size of metastatic disease. Mineralization is noted in the basal ganglia. No extra-axial fluid collection is seen. Ventricles, sulci, cisterns: Normal in configuration. Intracranial vasculature: There is atherosclerotic calcification of the cavernous carotid arteries. Calvarium: There are postoperative changes from left sided craniotomy. Sinuses and mastoids: The visualized paranasal sinuses are clear. The mastoid air cells are well pneumatized. Orbits: The bony orbits are grossly intact. IMPRESSION: 1. There is no hemorrhage or evidence of acute territorial ischemia by CT criteria. 2. Foci of edema within the left frontal white matter and the right cerebellar hemisphere have not significantly changed from recent prior studies and are consistent with the patient's known metastatic disease. Electronically signed by: Jose A Hall M.D. 11/13/2016 7:15 AM . Impression - H&P Impression Assessment and Plan ALTERED MENTAL STATUS CT without contrast shows previously noted frontal and cerebellar mets. No hemorrhage. Blood alcohol level nondetectable. Urine tox screen negative. ? secondary to meds (e.g., patient has been prescribed Compazine in recent past) . Continue dexamethasone. Cannot do MRI due to pacemaker and recent IVC filter. Consider CT head with contrast if symptoms do not improve. Consider Neuro consult if symptoms do not improve. METASTATIC LUNG CA History and plan as detailed during last hospitalization. Poor prognosis. Palliative care was consulted. Patient does not wish to enroll in hospice at this time. DVT LOWER EXTREMITY Status post [place] filter placement. VTE PROPHYLAXIS No anticoagulants due to brain mets and thrombocytopenia. No mechanical options due to acute DVT. RESUSCITATION STATUS Full code per discussions over past few day. DISPOSITION To be determined. . VTE Prophylaxis . . Physical Exam (per Admitting): General Appearance: + mild distress, + cachetic Head: normocephalic, atraumatic Eyes: PERRL, EOMI, sclerae normal ENT: hearing grossly normal Neck: supple, thyroid normal, trachea midline Respiratory/Chest: no respiratory distress, no accessory muscle use, + wheezing Cardiovascular: regular rate, rhythm, no gallop, no JVD, + pertinent finding (left infraclavicular pacemaker; right infraclavicular vascular access port; trace pretibial edema, no calf tenderness) Abdomen/GI: normal bowel sounds, non tender, soft, no organomegaly, no pulsatile mass Extremities/Musculoskelatal: no calf tenderness, no pedal edema Neurologic/Psych: + pertinent finding (upset, dysarthric, ? expressive aphasia; genearlized motor weakness; plantar reflexes equivocal bilaterally) Skin: normal color, warm/dry, no rash, + pertinent finding (1 cm nodular mass right upper back) Hospital Course Stroke Like symptoms Happened to be yesterday Was seen by the Neurologist CTA of the brain -no definite stroke EEG-negative for any epileptiform activity Keppra stopped and restarted again as prophylaxis Occasional Agitation Moved to 182 for 1 to 1 sitter requirement Encephalopathy secondary to medications and/or intracerebral metastasis May be contributed by mild Cerebral Edema Change In Mental Status Has Ca of the Lung with brain Mets Was discharged home yesterday following a short stay due to bronchitis Differentials-Due to progress of the cancer,use of sedative /antihistamine or even due to Steroid No new lesion on CT scan will continue Dexamethasone for now Was seen by Radiation Oncology-no radiation at this time due to acute events Will increase Decadron to TID Stage IV NSCLC with intrathoracic and brain metastases, Possibly evolving metastasis to the liver by imaging during this hospitalization Complicating COPD exacerbation during recent admission Status post combined radiation and chemotherapy (carboplatin/alimta). Radiation completed 01/08/2016. Received 4000 cGy. -4 cycles of adjuvant/maintenance Alimta (Dr. Mike) -PET/CT - 08/20/2016 - shows progression of disease -Restarted on Alimta -CT Head - 09/01/2016 - Right cerebellum solitary brain metastasis Status post completion of stereotactic radiation therapy 10/04/2015. He received 3000 cGy in 5 fractions chemotherapy currently on hold secondary to thrombocytopenia. Palliative Care consulted during recent admission Was evaluated by Oncology during recent admission Discussed with the Oncologist-wanted to go [facility] Chronic obstructive pulmonary disease exacerbation. No sepsis. Oxygen administration Has been on oral Doxycycline Acute DVT Right Leg S/P IVC filter placement Chronic systolic heart failure secondary to ischemic cardiomyopathy, EF 35% ( TTE 2013) Patient is euvolemic. Hx PPM Chronic anemia, hemoglobin at baseline. Malnutrition, low BMI. Thrombocytopenia Noted since 12/2015 and even before with a level of ~100 since 2013 S/P Bone marrow Biopsy-result pending Platelet 78 today Ongoing tobacco abuse Past EtOH abuse Nicotine Patch DVT prophylaxis, SCDs for now. RE thrombocytopenia Full code as per patient. Discussed with the Brother Brother will discuss with the family members for possible DNR Discussed with the Brother and the patient Patient still wants to have Full code Will continue current medication Will discuss again for possible Discharge home with Home Hospice Total time spent on discharge = 35 minutes This includes examination of the patient, discharge planning, medication reconciliation, and communication with other providers. Discharge Instructions Date of Service Nov 15, 2016. Admission Reason for Admission: Altered Mental Status, Lung Cancer Discharge Discharge Diagnosis / Problem: Change in Mental Status,Ca lung with Brain Metastases Discharge Goals Goal(s): Prevent Disease Progression Activity Recommendations Activity Limitations: resume your previous activity . Instructions / Follow-Up Instructions / Follow-Up Dr Lea on 11/18/16 at 2:05PM.Please keep appointment with your Oncologist Current Hospital Diet Patient's current hospital diet: Regular Diet Discharge Diet Recommended Diet: Regular Diet Pending Studies Studies pending at discharge: no Medical Emergencies . Who to Call and When: Medical Emergencies: If at any time you feel your situation is an emergency, please call 911 immediately. . Non-Emergent Contact Non-Emergency issues call your: Primary Care Provider . Past History Medical & Surgical History: (1) Cavitating mass in right upper lung lobe (2) Malignant neoplasm metastatic to brain (3) Altered mental status (4) Lung cancer (5) Pacemaker (6) DVT (deep venous thrombosis) . "Provider Documentation" section prepared by Rohan Higginbotham. . VTE Core Measure Inpt VTE Proph given/why not?: SCD's, Contraindicated <Electronically signed by Rohan Higginbotham M.D.> Signed: 11/15/16 7141 Additional Copies To Rayray Lea M.D.
[2016-11-29] MEDS ORDERED: LEVETIRACETAM 250 MG TAB PO SCH (08:00)
== END 2016-11-15 13:05 | disposition home health service (06) | DRG 871 ==
LOC: EDBD 01:03 → C.EDB 01:06 → C.4E 03:51 → ENRESERV 03:55 → C.MED 11-14 18:50
PROVIDERS: ADMIT Hospitalist; ATTEND Internal Medicine
DX: A41.9 Sepsis, unspecified organism (principal); G92 Toxic encephalopathy; G93.6 Cerebral edema; J18.9 Pneumonia, unspecified organism; I50.22 Chronic systolic (congestive) heart failure; C34.90 Malignant neoplasm of unspecified part of unspecified bronchus or lung; C79.31 Secondary malignant neoplasm of brain; C79.51 Secondary malignant neoplasm of bone; J44.1 Chronic obstructive pulmonary disease with (acute) exacerbation; I82.401 Acute embolism and thrombosis of unspecified deep veins of right lower extremity; F17.200 Nicotine dependence, unspecified, uncomplicated; I25.5 Ischemic cardiomyopathy; D64.9 Anemia, unspecified; D69.6 Thrombocytopenia, unspecified; Z79.899 Other long term (current) drug therapy; Z92.3 Personal history of irradiation; T50.905A Adverse effect of unspecified drugs, medicaments and biological substances, initial encounter; I25.10 Atherosclerotic heart disease of native coronary artery without angina pectoris; I11.0 Hypertensive heart disease with heart failure; Z95.0 Presence of cardiac pacemaker; I95.9 Hypotension, unspecified; R09.02 Hypoxemia; Z86.718 Personal history of other venous thrombosis and embolism; Z51.5 Encounter for palliative care; G40.909 Epilepsy, unspecified, not intractable, without status epilepticus; Z66 Do not resuscitate

== ENCOUNTER 2016-11-15 21:01 | Inpatient (IN) | payer OTHER ==
[~2016-11-15] VITALS: Ht 167.6 cm; Wt 47.5 kg
[~2016-11-15 21:01] MED LIST changes: +DOXY100C76 PO; +DXM/4 PO; -DXM4 PO; -DXY100 PO; +KPP250 PO; +MAGN400T6 PO; -NICO14DI5 TD; +NICO14DI9 TOP; +SOTA80TA PO
--- NOTE | 2016-11-15 21:12 | EMERGENCY ROOM VISIT NOTE ---
History Report prepared by Norberto: Rodrick Irwin Under the Supervision of: Constantine LamasO. First contact with patient: 21:03 Chief Complaint: ALTERED MENTAL STATUS Stated Complaint: ALTERED MENTAL STAUS History of Present Illness The patient is a 61 year old male who presents to the Emergency Room with altered mental status. This history is limited secondary to his altered mental status. Per the patient's family, he began to be mentally altered, so they sent him to the ER. Family not present at bedside at this time. Patient brought in by EMS. Source of History: family History Limited By: AMS Position: other (global) Review of Systems Limited secondary to altered mental status. Past Medical & Surgical Medical Problems: (1) Cavitating mass in right upper lung lobe (2) Coronary artery disease (3) DVT (deep venous thrombosis) (4) Dyslipidemia (5) Hypertension (6) Lung cancer (7) Metastatic lung cancer (metastasis from lung to other site) (8) Systolic CHF, chronic (9) Thrombocytopenia Surgical Problems: (1) History of vascular access device (2) Status post cardiac pacemaker procedure (3) Status post insertion of inferior vena caval filter Family History FH: CAD (coronary artery disease) MOTHER FH: cancer FATHER (type unknown) Social History Smoking Status: Current Some Day Smoker Alcohol Use: none Drug Use: none Marital Status: single Housing Status: lives with family Occupation Status: disabled Current/Historical Medications Scheduled Carvedilol (Carvedilol), 12.5 MG PO BID Folic Acid (Cvs Folic Acid), 800 MCG PO DAILY Levetiractam (Keppra), 250 MG PO BID Lisinopril (Lisinopril), 5 MG PO DAILY Magnesium Oxide (Mag-Ox), 400 MG PO DAILY Simvastatin (Simvastatin), 20 MG PO DAILY Sotalol Hcl (Sotalol Hcl), 80 MG PO BID Tiotropium Rosebud (Spiriva Handihaler), 1 CAP INH DAILY Scheduled PRN Ipratropium-Albuterol (Combivent Respimat), 1 PUFF INH QID PRN for Wheezing Prochlorperazine Maleate (Prochlorperazine Maleate), 10 MG PO Q6H PRN for Nausea Tramadol HCl (Tramadol HCl), 25 MG PO Q6H PRN for Pain Allergies Coded Allergies: Ibuprofen (Verified Allergy, Unknown, ITCHING - BUT TAKES ASA WITHOUT PROBLEM, 11/13/16) Physical Exam Vital Signs Date Time Temp Pulse Resp B/P (MAP) Pulse Ox O2 Delivery O2 Flow Rate FiO2 11/15/16 22:16 92 Nasal Cannula 4.0 11/15/16 21:50 115 32 85/52 86 Nasal Cannula 4.0 11/15/16 21:49 90 Oxymask 15.0 11/15/16 21:49 81 Room Air 11/15/16 21:24 36.5 97 23 88/62 81 Room Air 11/15/16 21:19 98 Physical Exam GENERAL: Cachectic and agitated in appearance. EYE EXAM: normal conjunctiva, PERRL and EOM's grossly intact OROPHARYNX: no exudate, no erythema, lips, buccal mucosa, and tongue normal and mucous membranes are moist NECK: supple, no nuchal rigidity, no adenopathy, non-tender LUNGS: Diminished breath sounds bilaterally. Rales bilaterally. HEART: no murmurs, S1 normal and S2 normal CHEST: Port present in the superior anterior chest wall. ABDOMEN: abdomen soft, non-tender, normo-active bowel sounds, no masses, no rebound or guarding. BACK: Back is symmetrical on inspection and there is no deformity, no midline tenderness, no CVA tenderness. SKIN: no rashes and no bruising UPPER EXTREMITIES: upper extremities are grossly normal. LOWER EXTREMITIES: No pitting edema. NEURO EXAM: Moves all extremities spontaneously, however, he would not cooperate for a full neurological examination. He opens his eyes to voice, but will not follow commands. He is talking incoherently. Medical Decision & Procedures ER Provider Diagnostic Interpretation: Radiology results have been interpreted by the radiologist and reviewed by me. CT OF THE HEAD WITHOUT CONTRAST CLINICAL HISTORY: Change in mental status. Metastatic lung cancer with brain metastases. COMPARISON STUDY: Head CT and CTA of the head November 13, 2016. CT DOSE: 1074.96 mGy.cm TECHNIQUE: Helical axial images of the head were obtained without IV contrast. Automated exposure control was utilized for the study. A dose lowering technique was utilized adhering to the principles of ALARA. FINDINGS: This study is moderately compromised by motion artifact. No acute intracranial hemorrhage, midline shift or mass effect is present. There is bilateral basal ganglia calcification. Ventricular system is stable. Basilar cisterns are patent. Hypodensity within the right cerebellar hemisphere is due to the known metastasis shown on outside head CT of October 31, 2016. Subtle edema within the left frontal lobe shown on prior exams is not well depicted on this study due to motion artifact. Visualized portions of the sinuses and mastoid air cells are clear. No calvarial fractures are identified although sensitivity is diminished on this exam. There is a left temporal craniotomy. IMPRESSION: 1. No acute intracranial hemorrhage. 2. Study compromised by motion artifact. No definite change since prior exam of November 13, 2016. Redemonstration of edema within the right cerebellar hemisphere due to the known metastasis. Electronically signed by: Kemal Siegel M.D. 11/15/2016 10:44 PM Dictated Date/Time: 11/15/2016 10:36 PM Laboratory Results Laboratory results per my review. ED Course 2102: The patient was evaluated in room B4B. A complete history and physical exam was performed. 2120: I spoke with the patients older brother, Edilberto, at this time. After an extensive conversation via phone, his brother states that he is next of kin and POA. The plan was to try and enroll the patient into hospice care. Someone is scheduled to come to his house tomorrow to evaluate him for possible home hospice. Otherwise, they prefer that he be placed in a facility close to where they live so they could see him. However, this afternoon, he became very agitated. His family couldn't understand his speech, so they called EMS He did not have seizure. We also had a long conversation about code status, and Edilberto decided to make the patient DNR and DNI. 2146: After discussing the patients case with case management, I reassessed the patient. His O2SATs are 74 and BP 80/50. [facility] 2201: Upon reevaluation, the patient is resting. I discussed the findings and the treatment plan with the patient's brother. He expresses agreement and understanding. [facility] [place] [facility] He will be evaluated for further management. Medical Decision Differential diagnosis: Etiologies such as metabolic, infection, hypoglycemia, electrolyte abnormalities , cardiac sources, intracerebral event, toxicologic, neurologic, as well as others were entertained. Patient with significant advanced disease and progression of condition. Patient just discharged earlier today following a lucid. The patient requested to go home. Patient aware of his worsening condition. Patient now back with altered mental status, extensive family discussion by the phone the patient's asked of can, older brother, followed. Prolonged phone conversation regarding patient's plan of care and CODE STATUS as well as current condition. CT of the head ordered to rule out acute intracranial hemorrhage or worsening brain metastases. Other etiologies include possible seizure, patient currently taking Keppra daily. Labs not emotionally drawn due to unclear plan, however following discussion with brother, discussed with hospitalist and they will place orders. Patient admitted to hospitalist again for likely placement into hospice and palliative care plan. Patient here hypotensive, hypoxic, agitated, eventually oxygen did improve following placement of nasal cannula once patient calmed down and limited in place. Initially patient would not tolerate nasal cannula or facemask. Consideration for possible sepsis, volume depletion, congestive heart failure, PE with hemodynamic instability. Patient hourly has full term place is unable to be anticoagulated. Patient did not have any fever here, however discussed with hospitalist consideration for possible treatment of pneumonia given known extensive lung disease. Medication Reconcilliation Current Medication List: was personally reviewed by me Blood Pressure Screening Patient's blood pressure: Low blood pressure I could not discuss the patient's blood pressure with him because of his altered mental status. Consults Time Called: 2146 Consulting Physician: Dr. Rubén Kasper Hospitalist Returned Call: 2200 He will be evaluating the patient for further management and care. Impression Primary Impression: Altered mental status Additional Impressions: Metastatic lung cancer (metastasis from lung to other site) Hypotension Hypoxia Critical Care I have personally spent greater than 40 minutes of critical care time in the direct management of this patient. This includes bedside care, interpretation of diagnostic studies, and testing, discussion with consultants, patient, and family members, and other required patient management activities. This 40 minutes is in excess of all separately billable procedures. Scribe Attestation The scribe's documentation has been prepared under my direction and personally reviewed by me in its entirety. I confirm that the note above accurately reflects all work, treatment, procedures, and medical decision making performed by me. Departure Information Dispostion Being Evaluated By Hospitalist Referrals Rayray Lea M.D. (PCP) Patient Instructions My [facility] Problem Qualifiers Primary Impression: Altered mental status Altered mental status type: unspecified Qualified Codes: R41.82 - Altered mental status, unspecified Additional Impressions: Metastatic lung cancer (metastasis from lung to other site) Laterality: right Qualified Codes: C34.91 - Malignant neoplasm of unspecified part of right bronchus or lung Hypotension Hypotension type: unspecified hypotension type Qualified Codes: I95.9 - Hypotension, unspecified
[2016-11-15] MEDS ORDERED: CRG125 PO (21:38)
[2016-11-15] MEDS ORDERED: SIMV-151 PO (21:38)
[2016-11-15] MEDS ORDERED: FOLI800T17 PO (21:38)
[2016-11-15] MEDS ORDERED: LSN5 PO (21:38)
[2016-11-15] MEDS ORDERED: ULT50 PO (21:38)
[2016-11-15] MEDS ORDERED: CMP/10 PO (21:38)
[2016-11-15] MEDS ORDERED: SPRIN/30 INH (21:47)
[2016-11-15] MEDS ORDERED: IPRA1AER2 INH (21:47)
[2016-11-15] MEDS ORDERED: PIPERACILLIN/TAZOBACTAM 4.5 GM/100ML D5W IV STA (22:34)
--- NOTE | 2016-11-15 22:34 | History and Physical ---
History & Physical Date & Time of Service: Nov 15, 2016 at 22:34 Chief Complaint: Altered Mental Staus Primary Care Physician: Rayray Lae M.D. History of Present Illness Source: family, clinic records, hospital records 61 YO male followed by Dr. Lea for FM and Dr. Mike for Medical Oncology. 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 Disease has progressed despite chemotherapy and radiation therapy. Presented to ED 11/10 with lower extremity DVT. Could not be anticoagulated due to brain mets and thrombocytopenia. IVC filter placed. Seen in consultation by Medical Oncology. Functional status poor. No further therapies recommended. Palliative care consultation requested. Discharged to home 11/12/16. Readmitted 11/13/16 due to altered mental status. Head CT unchanged (metastatic disease as before, no hemorrhage or stroke). Possible seizures- started on Keppra. Better today. Patient wished to go home. Discharged to home with home health + anticipated transition to hospice. Brought back to ED this evening because of worsening confusion. In the ED he was noted to be hypoxic and hypotensive. Patient unable to provide any history because of his mental status. . 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 Family History FH: CAD (coronary artery disease) MOTHER FH: cancer FATHER (type unknown) Social History Smoking Status: Former Smoker Alcohol Use: yes Drug Use: none Marital Status: single Housing status: lives with family Occupational Status: disabled Immunizations History of Influenza Vaccine: Unknown History of Tetanus Vaccine?: Unknown History of Pneumococcal: Unknown History of Hepatitis B Vaccine: Unknown Multi-Drug Resistant Organisms History of MDRO: No Allergies Coded Allergies: Ibuprofen (Verified Allergy, Unknown, ITCHING - BUT TAKES ASA WITHOUT PROBLEM, 11/13/16) Home Medications Scheduled Carvedilol (Carvedilol), 12.5 MG PO BID Folic Acid (Cvs Folic Acid), 800 MCG PO DAILY Levetiractam (Keppra), 250 MG PO BID Lisinopril (Lisinopril), 5 MG PO DAILY Magnesium Oxide (Mag-Ox), 400 MG PO DAILY Simvastatin (Simvastatin), 20 MG PO DAILY Sotalol Hcl (Sotalol Hcl), 80 MG PO BID Tiotropium [place] (Spiriva Handihaler), 1 CAP INH DAILY Scheduled PRN Ipratropium-Albuterol (Combivent Respimat), 1 PUFF INH QID PRN for Wheezing Prochlorperazine Maleate (Prochlorperazine Maleate), 10 MG PO Q6H PRN for Nausea Tramadol HCl (Tramadol HCl), 25 MG PO Q6H PRN for Pain Review of Systems Unable to obtain due to patient's mental status. . Physical Exam Vital Signs Date Time Temp Pulse Resp B/P (MAP) Pulse Ox O2 Delivery O2 Flow Rate FiO2 11/15/16 22:16 92 Nasal Cannula 4.0 11/15/16 21:50 115 32 85/52 86 Nasal Cannula 4.0 11/15/16 21:49 90 Oxymask 15.0 11/15/16 21:49 81 Room Air 11/15/16 21:24 36.5 97 23 88/62 81 Room Air 11/15/16 21:19 98 General Appearance: + moderate distress, + cachetic Head: normocephalic, atraumatic Eyes: PERRL, EOMI, sclerae normal ENT: + pertinent finding (exam limited- patient unable to cooperate) Neck: supple, no adenopathy, thyroid normal, trachea midline Respiratory/Chest: + accessory muscle use, + pertinent finding (scattered rhonchi, diffuse wheezing) Cardiovascular: regular rate, rhythm, no edema, no gallop (none appreciated, but exam limited), no murmur, + JVD, + tachycardia Abdomen/GI: normal bowel sounds, non tender, soft, no organomegaly Extremities/Musculoskelatal: no calf tenderness, no pedal edema Neurologic/Psych: + pertinent finding (exam very limited; confused; moves all 4 extremities) Skin: normal color, warm/dry, no rash Lymphatic: no adenopathy (cervical) Diagnostics Laboratory Results Last 24 Hours Test 11/15/16 23:56 White Blood Count 21.72 K/uL Red Blood Count 2.77 M/uL Hemoglobin 9.6 g/dL Hematocrit 26.9 % Mean Corpuscular Volume 97.1 fL Mean Corpuscular Hemoglobin 34.7 pg Mean Corpuscular Hemoglobin Concent 35.7 g/dl Platelet Count 32 K/uL Neutrophils (%) (Auto) 86.5 % Lymphocytes (%) (Auto) 2.8 % Monocytes (%) (Auto) 9.3 % Eosinophils (%) (Auto) 0.0 % Basophils (%) (Auto) 0.0 % Neutrophils # (Auto) 18.78 K/uL Lymphocytes # (Auto) 0.60 K/uL Monocytes # (Auto) 2.01 K/uL Eosinophils # (Auto) 0.01 K/uL Basophils # (Auto) 0.01 K/uL RDW Standard Deviation 55.2 fL RDW Coefficient of Variation 15.7 % Immature Granulocyte % (Auto) 1.4 % Immature Granulocyte # (Auto) 0.31 K/uL Nucleated RBC Absolute Count (auto) 0.12 K/uL Nucleated Red Blood Cells % 0.5 % Toxic Vacuolation 1+ Platelet Estimate DECREASED Polychromasia 1+ Basophilic Stippling 1+ Sodium Level 129 mmol/L Potassium Level 4.3 mmol/L Chloride Level 93 mmol/L Carbon Dioxide Level 26 mmol/L Anion Gap 10.0 mmol/L Blood Urea Nitrogen 28 mg/dl Creatinine 0.85 mg/dl Estimated GFR () 110.5 Estimated GFR (Non- 95.4 BUN/Creatinine Ratio 32.9 Random Glucose 87 mg/dl Calcium Level 9.0 mg/dl Diagnostic Radiology CT OF THE HEAD WITHOUT CONTRAST FINDINGS: This study is moderately compromised by motion artifact. No acute intracranial hemorrhage, midline shift or mass effect is present. There is bilateral basal ganglia calcification. Ventricular system is stable. Basilar cisterns are patent. Hypodensity within the right cerebellar hemisphere is due to the known metastasis shown on outside head CT of October 31, 2016. Subtle edema within the left frontal lobe shown on prior exams is not well depicted on this study due to motion artifact. Visualized portions of the sinuses and mastoid air cells are clear. No calvarial fractures are identified although sensitivity is diminished on this exam. There is a left temporal craniotomy. IMPRESSION: 1. No acute intracranial hemorrhage. 2. Study compromised by motion artifact. No definite change since prior exam of November 13, 2016. Redemonstration of edema within the right cerebellar hemisphere due to the known metastasis. Electronically signed by: Kemal Siegel M.D. 11/15/2016 10:44 PM Portable chest x-ray reviewed by the undersigned. Difficult to interpret because of poor positioning. Formal interpretation by Radiology pending. . Impression Assessment and Plan POSSIBLE PNEUMONIA Worsening confusion, chest congestion, hypoxia, leukocytosis. Chest x-ray difficult to interpret because of difficulty positioning the patient. Clinically, suspect possible pneumonia, aspiration versus healthcare associated. Treat for suspected pneumonia with IV Zosyn and vancomycin. Supplemental oxygen as necessary. Sepsis protocol not initiated due to terminal illness and conservative plan of management. LUNG CA Non small cell carcinoma of lung with AGED OR DISABLED CARER and skeletal mets. Progressive disease despite chemotherapy and radiation therapy. Poor functional status. Not a candidate for further therapy. Palliative care recommended by Hematology / Oncology. BRAIN METS Continue steroids. POSSIBLE SEIZURE DISORDER Continue levetiracetam. CAD NTG PRN. CHRONIC LEFT VENTRICULAR SYSTOLIC HEART FAILURE Hold lisinopril due to hypotension. Continue carvedilol with hold parameters. Diurese PRN. VTE PROPHYLAXIS Anticoagulants contraindicated due to AGED OR DISABLED CARER mets and thrombocytopenia. SCD's contraindicated due to subacute DVT. TEDS have more risk than benefit. RESUSCITATION STATUS Discussed with brother Edilberto who is primary caregiver. Code status now DNR per patient's previously expressed wishes given current circumstances. DISPOSITION Terminally ill. Admit to Oncology Unit. No extraordinary measures per discussion with brother. Discharge disposition to be determined. Terminally and acutely ill. May pass away during this hospital stay. Arrangements for Hospice would be appropriate if his condition permits. . Resuscitation Status DO NOT RESUSCITATE VTE Prophylaxis Risk Level: High Given or contraindicated: Contraindicated
[2016-11-15] MEDS ORDERED: HYDROCORTISONE IV 100 MG in SYRINGE 0 ML IV ONE (22:45)
[2016-11-15] MEDS ORDERED: LEVALBUTEROL 0.63MG/3 ML NEB INH PRN (22:45)
[2016-11-15] MEDS ORDERED: MoRPHine SULFATE 2 MG/ML CARP IV PRN (22:45)
[2016-11-15] MEDS ORDERED: ACETAMINOPHEN 325 MG TAB PO PRN (22:45)
--- NOTE | 2016-11-15 22:45 | DIAGNOSTIC IMAGING REPORT ---
CT OF THE HEAD WITHOUT CONTRAST CLINICAL HISTORY: Change in mental status. Metastatic lung cancer with brain metastases. COMPARISON STUDY: Head CT and CTA of the head November 13, 2016. CT DOSE: 1074.96 mGy.cm TECHNIQUE: Helical axial images of the head were obtained without IV contrast. Automated exposure control was utilized for the study. A dose lowering technique was utilized adhering to the principles of ALARA. FINDINGS: This study is moderately compromised by motion artifact. No acute intracranial hemorrhage, midline shift or mass effect is present. There is bilateral basal ganglia calcification. Ventricular system is stable. Basilar cisterns are patent. Hypodensity within the right cerebellar hemisphere is due to the known metastasis shown on outside head CT of October 31, 2016. Subtle edema within the left frontal lobe shown on prior exams is not well depicted on this study due to motion artifact. Visualized portions of the sinuses and mastoid air cells are clear. No calvarial fractures are identified although sensitivity is diminished on this exam. There is a left temporal craniotomy. IMPRESSION: 1. No acute intracranial hemorrhage. 2. Study compromised by motion artifact. No definite change since prior exam of November 13, 2016. Redemonstration of edema within the right cerebellar hemisphere due to the known metastasis. Electronically signed by: Kemal Siegel M.D. 11/15/2016 10:44 PM Dictated Date/Time: 11/15/2016 10:36 PM
[2016-11-15] MEDS ORDERED: HYDROCORTISONE SOD SUCCINATE 100 MG/2 ML VIAL ONE (23:59)
[2016-11-16] VITALS (12 sets, daily range): BP systolic 82–160; BP diastolic 57–94; PULSE 80–119; TEMP 36.5–36.6; O2SAT 77–93; BMI 16.9
[2016-11-16] MEDS ORDERED: PIPERACILLIN/TAZOBACTAM 4.5 GM/100ML D5W ONE (00:01)
[2016-11-16 00:31] LABS: BLOOD UREA NITROGEN 28 mg/dl (7-18); BUN/CREATININE RATIO 32.9 (10-20); CARBON DIOXIDE 26 mmol/L (21-32); CHLORIDE 93 mmol/L (98-107); CREATININE 0.85 mg/dl (0.60-1.40); GLUCOSE 87 mg/dl (70-99); POTASSIUM 4.3 mmol/L (3.5-5.1); SODIUM 129 mmol/L (136-145)
[2016-11-16] MEDS ORDERED: VANCOMYCIN CONSULT ACTIVE PRN (00:45)
[2016-11-16] MEDS ORDERED: PIPERACILL/TAZOBAC CONSULT ACTIVE PRN (00:45)
[2016-11-16] MEDS ORDERED: SODIUM CHLORIDE 0.9% 500ML 500 ML IV SCH (00:50)
[2016-11-16] MEDS ORDERED: VANCOMYCIN INJ 1,250 MG in SODIUM CHLORIDE 0.9% 250ML 250 ML IV ONE (01:00)
[2016-11-16 01:01] LABS: HEMATOCRIT 26.9 % (42-52); MEAN CELL VOLUME 97.1 fL (80-100); MEAN CORPUSCULAR HEMOGLOBIN 34.7 pg (25-34); MEAN CORPUSCULAR HGB CONC 35.7 g/dl (32-36); PLATELET COUNT 32 K/uL (130-400); RED BLOOD COUNT 2.77 M/uL (4.7-6.1); WHITE BLOOD COUNT 21.72 K/uL (4.8-10.8)
[2016-11-16 01:02] LABS: BASO ABS # 0.01 K/uL (0-0.2); COMPLETE YES; IG% 1.4 %; LYMPH % 2.8 %; MONO % 9.3 %; NEUT % 86.5 %; PLT ESTIMATE DECREASED; POLYCHROMASIA 1+; VACUOLIZATION 1+
[2016-11-16] MEDS ORDERED: LORAZEPAM 2 MG/ML 1 ML VIAL IV PRN (02:45)
--- NOTE | 2016-11-16 03:01 | Pharmacy Progress Note ---
Pharmacy Antibiotic Consult Date of Service: Nov 16, 2016. Pharmacy Dosing Scope Pharmacy is consulted to initiate VANC/ZOSYN-IV dosing therapy, order appropriate labs and adjust drug dose/frequency. Subjective The patient is a 61 year old male admitted on Nov 15, 2016 at 22:40 ordered broad spectrum IV antibiotics for pulmonary source infection. Pertinent PMH: NSCLC with mets brain/skeleton (hx chemo/radiation), IVC filter Objective Weight (Kilograms): 49.100 Lab Results (24hrs): Test 11/15/16 23:56 White Blood Count 21.72 K/uL (4.8-10.8) Red Blood Count 2.77 M/uL (4.7-6.1) Hemoglobin 9.6 g/dL (14.0-18.0) Hematocrit 26.9 % (42-52) Mean Corpuscular Volume 97.1 fL (80-100) Mean Corpuscular Hemoglobin 34.7 pg (25-34) Mean Corpuscular Hemoglobin Concent 35.7 g/dl (32-36) Platelet Count 32 K/uL (130-400) Neutrophils (%) (Auto) 86.5 % Lymphocytes (%) (Auto) 2.8 % Monocytes (%) (Auto) 9.3 % Eosinophils (%) (Auto) 0.0 % Basophils (%) (Auto) 0.0 % Neutrophils # (Auto) 18.78 K/uL (1.4-6.5) Lymphocytes # (Auto) 0.60 K/uL (1.2-3.4) Monocytes # (Auto) 2.01 K/uL (0.11-0.59) Eosinophils # (Auto) 0.01 K/uL (0-0.5) Basophils # (Auto) 0.01 K/uL (0-0.2) RDW Standard Deviation 55.2 fL (36.4-46.3) RDW Coefficient of Variation 15.7 % (11.5-14.5) Immature Granulocyte % (Auto) 1.4 % Immature Granulocyte # (Auto) 0.31 K/uL (0.00-0.02) Nucleated RBC Absolute Count (auto) 0.12 K/uL (0-0) Nucleated Red Blood Cells % 0.5 % Toxic Vacuolation 1+ Platelet Estimate DECREASED Polychromasia 1+ Basophilic Stippling 1+ Sodium Level 129 mmol/L (136-145) Potassium Level 4.3 mmol/L (3.5-5.1) Chloride Level 93 mmol/L (98-107) Carbon Dioxide Level 26 mmol/L (21-32) Anion Gap 10.0 mmol/L (3-11) Blood Urea Nitrogen 28 mg/dl (7-18) Creatinine 0.85 mg/dl (0.60-1.40) Estimated GFR () 110.5 Estimated GFR (Non- 95.4 BUN/Creatinine Ratio 32.9 (10-20) Random Glucose 87 mg/dl (70-99) Calcium Level 9.0 mg/dl (8.5-10.1) Micro Results: 11/15/16: BC x 1-pending Assessment & Plan VANC-IV: * Estimated p'kinetics: Vd~0.7L/kg, Ke~0.0874hr-1, t1/2~8hr * Loading dose: VANC 1250mg (~25mg/kg) IV X 1 dose then: * Maintenance dose: VANC 800mg (~16mg/kg) IV every 10 hours. * Goal trough level estimate: between 15 - 20 mcg/mL. * VANC trough level @ [facility] prior to 11/17 0500 dose. ZOSYN-IV: 4.5 grams IV x 1, then 3.375 grams IV every 8 hours for GFR > 40mL/ min. Pharmacy will continue to follow and will adjust dose/frequency as necessary. Thank you
[2016-11-16] MEDS: LORAZEPAM INJ 1 MG in SYRINGE 0.5 ML IV PRN (03:20)
[2016-11-16] MEDS ORDERED: NITROGLYCERIN 0.4 MG SL PER TAB CHARGE SL PRN (03:45)
--- NOTE | 2016-11-16 05:49 | DIAGNOSTIC IMAGING REPORT ---
CHEST ONE VIEW PORTABLE CLINICAL HISTORY: hypoxia, lung Ca dyspnea COMPARISON STUDY: 12/03/2015 FINDINGS: Limited study as the patient could not cooperate. Mild cardiomegaly. Permanent bipolar cardiac pacer. Slight pulmonary vascular prominence. Right hilar mass in the prior study is considerably smaller. IMPRESSION: Limited study demonstrating mild cardiomegaly. The above report was generated using voice recognition software. It may contain grammatical, syntax or spelling errors. Electronically signed by: Nickolas Monroe M.D. 11/16/2016 5:48 AM Dictated Date/Time: 11/16/2016 5:47 AM
[2016-11-16] MEDS: PIPERACILL/TAZOBAC IV 3.375 GM in DEXTROSE 5% 100ML 100 ML IV SCH ×3 (06:33→21:30)
[2016-11-16] MEDS: IPRATROPIUM BROMIDE NEB SOLN 0.02% 2.5 ML VIAL INH SCH ×4 (07:17→18:59)
[2016-11-16] MEDS: LEVALBUTEROL 1.25MG/0.5ML NEB INH SCH ×4 (07:17→18:59)
[2016-11-16] MEDS ORDERED: CARVEDILOL 12.5 MG TAB PO SCH (08:00)
[2016-11-16] MEDS ORDERED: SODIUM CHLORIDE 0.9% 500ML 500 ML IV ONE (08:15)
[2016-11-16] MEDS: SOTALOL HCL 80 MG TAB PO SCH ×2 (09:09→20:00)
[2016-11-16] MEDS: CARVEDILOL 6.25 MG TAB PO SCH ×2 (09:09→20:00)
[2016-11-16] MEDS: MoRPHine SULFATE 2 MG/ML CARP IV PRN ×4 (09:42→19:42)
[2016-11-16] MEDS: DEXAMETHASONE INJ 4 MG in SYRINGE 0 ML IV SCH ×2 (09:44→21:07)
[2016-11-16] MEDS: LEVETIRACETAM 250 MG TAB PO SCH ×2 (09:44→20:00)
[2016-11-16] MEDS: VANCOMYCIN INJ 800 MG in SODIUM CHLORIDE 0.9% 250ML 250 ML IV SCH ×2 (10:19→18:29)
--- NOTE | 2016-11-16 11:09 | Progress Note ---
Internal Med Progress Note Date of Service: Nov 16, 2016. Provider Documentation: SUBJECTIVE: The patient was seen and examined Has widespread metastatic disease secondary to Non-small cell lung cancer Has ahd Chemo and Radiation before and the condition is deteriorating very fast This is his 2nd readmission in less than 1 week Admitted with AMS and hypotension Discussed with the Family members,6 of them in total Continue current treatment now Comfort care from tomorrow morning if there is no improvement or condition deteriorates OBJECTIVE: Vital Signs-as noted below Exam: General-Hypotensive Not been able to communicate In moderate distress at rest Eyes-closed ENT-Normal Neck-supple Lungs-Decreased breath sound bilaterally Crackles and Wheezing bilaterally Heart-Regular Abdomen-Benign Extremities-trace edema Neuro-Confused Generally weak Lab data as noted below. ASSESSMENT & PLAN: NON Small Cell LUNG CA with Brain and skeletal metastases Progressive disease despite chemotherapy and radiation therapy. Poor functional status and deteriorating rapidly Not a candidate for further therapy. Palliative care recommended by Hematology / Oncology. Discussed with Oncologist this morning Will discuss with brother for transition to Comfort care /hospice [facility] POSSIBLE PNEUMONIA with Severe Sepsis Worsening confusion, chest congestion, hypoxia, leukocytosis. Chest x-ray difficult to interpret because of difficulty positioning the patient. Suspect possible pneumonia, aspiration versus healthcare associated. Started on IV Zosyn and vancomycin. Supplemental oxygen as necessary. Not any better this morning BRAIN METS may be complicated by Edema Continue steroids. POSSIBLE SEIZURE DISORDER Continue levetiracetam. CAD NTG PRN. CHRONIC LEFT VENTRICULAR SYSTOLIC HEART FAILURE Hold lisinopril due to hypotension. Continue carvedilol with hold parameters. Diurese PRN. 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 SCD's contraindicated due to subacute DVT. TEDS have more risk than benefit. RESUSCITATION STATUS Discussed with brother Edilberto who is primary caregiver. Code status now DNR per patient's previously expressed wishes given current circumstances. DISPOSITION Terminally ill. Discharge disposition to be determined. Discussed with the Family members-as above Vital Signs: Date Time Temp Pulse Resp B/P (MAP) Pulse Ox O2 Delivery O2 Flow Rate FiO2 11/16/16 17:14 Nasal Cannula 3.0 11/16/16 15:50 119 20 92 Nasal Cannula 3.0 11/16/16 15:36 36.6 101 20 160/86 (110) 91 Nasal Cannula 4.0 11/16/16 12:16 36.5 105 20 153/91 (111) 77 Nasal Cannula 3.0 11/16/16 12:00 Nasal Cannula 3.0 11/16/16 11:15 82 20 92 Nasal Cannula 3.0 11/16/16 08:06 36.5 93 18 82/57 (65) 93 Nasal Cannula 3.0 11/16/16 07:19 80 22 80 Room Air 11/16/16 02:57 90 Nasal Cannula 3.0 11/16/16 01:15 36.6 102 22 103/72 (82) 88 Nasal Cannula 3.0 11/16/16 00:30 36.6 22 103/72 11/16/16 00:08 94 20 90/74 84 Nasal Cannula 2.0 11/15/16 22:16 92 Nasal Cannula 4.0 11/15/16 21:50 115 32 85/52 86 Nasal Cannula 4.0 11/15/16 21:49 90 Oxymask 15.0 11/15/16 21:49 81 Room Air 11/15/16 21:24 36.5 97 23 88/62 81 Room Air 11/15/16 21:19 98 Lab Results: Results Past 24 Hours Test 11/15/16 23:56 Range/Units White Blood Count 21.72 4.8-10.8 K/uL Red Blood Count 2.77 4.7-6.1 M/uL Hemoglobin 9.6 14.0-18.0 g/dL Hematocrit 26.9 42-52 % Mean Corpuscular Volume 97.1 80-100 fL Mean Corpuscular Hemoglobin 34.7 25-34 pg Mean Corpuscular Hemoglobin Concent 35.7 32-36 g/dl Platelet Count 32 130-400 K/uL Neutrophils (%) (Auto) 86.5 % Lymphocytes (%) (Auto) 2.8 % Monocytes (%) (Auto) 9.3 % Eosinophils (%) (Auto) 0.0 % Basophils (%) (Auto) 0.0 % Neutrophils # (Auto) 18.78 1.4-6.5 K/uL Lymphocytes # (Auto) 0.60 1.2-3.4 K/uL Monocytes # (Auto) 2.01 0.11-0.59 K/uL Eosinophils # (Auto) 0.01 0-0.5 K/uL Basophils # (Auto) 0.01 0-0.2 K/uL RDW Standard Deviation 55.2 36.4-46.3 fL RDW Coefficient of Variation 15.7 11.5-14.5 % Immature Granulocyte % (Auto) 1.4 % Immature Granulocyte # (Auto) 0.31 0.00-0.02 K/uL Nucleated RBC Absolute Count (auto) 0.12 0-0 K/uL Nucleated Red Blood Cells % 0.5 % Toxic Vacuolation 1+ Platelet Estimate DECREASED Polychromasia 1+ Basophilic Stippling 1+ Sodium Level 129 136-145 mmol/L Potassium Level 4.3 3.5-5.1 mmol/L Chloride Level 93 98-107 mmol/L Carbon Dioxide Level 26 21-32 mmol/L Anion Gap 10.0 3-11 mmol/L Blood Urea Nitrogen 28 7-18 mg/dl Creatinine 0.85 0.60-1.40 mg/dl Estimated GFR () 110.5 Estimated GFR (Non- 95.4 BUN/Creatinine Ratio 32.9 10-20 Random Glucose 87 70-99 mg/dl Calcium Level 9.0 8.5-10.1 mg/dl Microbiology Results 11/15/16 Blood Culture, Received Pending 11/16/16 MRSA DNA Surveillance Screen - Final, Complete Specimen Negative for MRSA by DNA Probe
[2016-11-17] VITALS: O2SAT 93
[2016-11-17] MEDS: MoRPHine SULFATE 2 MG/ML CARP IV PRN ×4 (00:21→23:45)
[2016-11-17] MEDS ORDERED: VANCOMYCIN TROUGH ONE (04:30)
[2016-11-17] MEDS: VANCOMYCIN INJ 800 MG in SODIUM CHLORIDE 0.9% 250ML 250 ML IV SCH (04:55)
[2016-11-17 05:07] LABS: BUN/CREATININE RATIO 27.5 (10-20); CALCIUM 8.5 mg/dl (8.5-10.1); CREATININE 0.59 mg/dl (0.60-1.40); MAGNESIUM 1.8 mg/dl (1.8-2.4); PHOSPHORUS 3.4 mg/dl (2.5-4.9); POTASSIUM 3.5 mmol/L (3.5-5.1)
[2016-11-17 05:41] LABS: HEMATOCRIT 24.4 % (42-52); MEAN CELL VOLUME 98.4 fL (80-100); MEAN CORPUSCULAR HEMOGLOBIN 34.7 pg (25-34); MEAN CORPUSCULAR HGB CONC 35.2 g/dl (32-36); PLATELET COUNT 20 K/uL (130-400); PLT ESTIMATE DECREASED; RED BLOOD COUNT 2.48 M/uL (4.7-6.1); WHITE BLOOD COUNT 21.97 K/uL (4.8-10.8)
[2016-11-17] MEDS: PIPERACILL/TAZOBAC IV 3.375 GM in DEXTROSE 5% 100ML 100 ML IV SCH (06:04)
[2016-11-17 06:29] VITALS: Ht 167.6 cm; Wt 47.5 kg
[2016-11-17 07:04] VITALS: PULSE 101; O2SAT 96
[2016-11-17] MEDS: IPRATROPIUM BROMIDE NEB SOLN 0.02% 2.5 ML VIAL INH SCH ×4 (07:04→18:13)
[2016-11-17] MEDS: LEVALBUTEROL 1.25MG/0.5ML NEB INH SCH ×2 (07:04→11:23)
[2016-11-17 07:08] VITALS: BP 157/99; PULSE 116; TEMP 36.7; O2SAT 100
[2016-11-17] MEDS: CARVEDILOL 6.25 MG TAB PO SCH (07:32)
[2016-11-17] MEDS: LEVETIRACETAM 250 MG TAB PO SCH (07:32)
[2016-11-17] MEDS: SOTALOL HCL 80 MG TAB PO SCH (07:32)
[2016-11-17] MEDS: DEXAMETHASONE INJ 4 MG in SYRINGE 0 ML IV SCH (07:33)
[2016-11-17 11:24] VITALS: PULSE 114; O2SAT 88
--- NOTE | 2016-11-17 13:29 | Progress Note ---
Internal Med Progress Note Date of Service: Nov 17, 2016. Provider Documentation: SUBJECTIVE: The patient was seen and examined Has widespread metastatic disease secondary to Non-small cell lung cancer Has had Chemo and Radiation before and the condition is deteriorating very fast This is his 2nd readmission in less than 1 week Admitted with AMS and hypotension Discussed with the Family members,6 of them in total Continue current treatment now Comfort care from tomorrow morning if there is no improvement or condition deteriorates Condition got worse overnight Confused and not communicative OBJECTIVE: Vital Signs-as noted below Exam: General-no distress Not been able to communicate Eyes-closed ENT-Normal Neck-supple Lungs-Decreased breath sound bilaterally Crackles and Wheezing bilaterally Heart-Regular Abdomen-Benign Extremities-trace edema Neuro-Confused Not communicative Lab data as noted below. ASSESSMENT & PLAN: NON Small Cell LUNG CA with Brain and skeletal metastases Progressive disease despite chemotherapy and radiation therapy. Poor functional status and deteriorating rapidly Not a candidate for further therapy. Palliative care recommended by Hematology / Oncology. Discussed with Oncologist this morning Will discuss with brother for transition to Comfort care /hospice [facility] Condition deteriorated overnight No Aggressive treatment ,no blood work and the patient will be put on comfort care only POSSIBLE PNEUMONIA with Severe Sepsis Worsening confusion, chest congestion, hypoxia, leukocytosis. Chest x-ray difficult to interpret because of difficulty positioning the patient. Suspect possible pneumonia, aspiration versus healthcare associated. Started on IV Zosyn and vancomycin. Supplemental oxygen as necessary. Not any better this morning Condition deteriorated Comfort care only BRAIN METS may be complicated by Edema Continue steroids.-stopped POSSIBLE SEIZURE DISORDER Continue levetiracetam.-stopped CAD NTG PRN. CHRONIC LEFT VENTRICULAR SYSTOLIC HEART FAILURE Hold lisinopril due to hypotension. Continue carvedilol with hold parameters. Diurese PRN. 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 SCD's contraindicated due to subacute DVT. TEDS have more risk than benefit. RESUSCITATION STATUS Discussed with brother Edilberto who is primary caregiver. Code status now DNR per patient's previously expressed wishes given current circumstances. DISPOSITION Terminally ill. Discharge disposition to be determined. Discussed with the Family members-as above Condition deterioarted As per discussion with the family members yesterday-he will be put on comfort care only Vital Signs: Date Time Temp Pulse Resp B/P (MAP) Pulse Ox O2 Delivery O2 Flow Rate FiO2 11/17/16 11:24 114 18 88 Nasal Cannula 3.0 11/17/16 09:30 Nasal Cannula 4.0 11/17/16 07:08 36.7 116 20 157/99 (118) 100 Nasal Cannula 3.0 11/17/16 07:04 101 16 96 Nasal Cannula 3.0 11/17/16 00:00 93 Nasal Cannula 4.0 11/16/16 20:00 93 Nasal Cannula 4.0 11/16/16 19:47 36.6 109 20 144/94 (111) 93 Nasal Cannula 4.0 11/16/16 19:00 102 20 92 Nasal Cannula 3.0 11/16/16 17:14 Nasal Cannula 3.0 11/16/16 15:50 119 20 92 Nasal Cannula 3.0 11/16/16 15:36 36.6 101 20 160/86 (110) 91 Nasal Cannula 4.0 Lab Results: Results Past 24 Hours Test 11/17/16 04:29 Range/Units White Blood Count 21.97 4.8-10.8 K/uL Red Blood Count 2.48 4.7-6.1 M/uL Hemoglobin 8.6 14.0-18.0 g/dL Hematocrit 24.4 42-52 % Mean Corpuscular Volume 98.4 80-100 fL Mean Corpuscular Hemoglobin 34.7 25-34 pg Mean Corpuscular Hemoglobin Concent 35.2 32-36 g/dl RDW Standard Deviation 57.8 36.4-46.3 fL RDW Coefficient of Variation 16.5 11.5-14.5 % Platelet Count 20 130-400 K/uL Nucleated RBC Absolute Count (auto) 0.08 0-0 K/uL Nucleated Red Blood Cells % 0.4 % Platelet Estimate DECREASED Sodium Level 135 136-145 mmol/L Potassium Level 3.5 3.5-5.1 mmol/L Chloride Level 102 98-107 mmol/L Carbon Dioxide Level 24 21-32 mmol/L Anion Gap 9.0 3-11 mmol/L Blood Urea Nitrogen 16 7-18 mg/dl Creatinine 0.59 0.60-1.40 mg/dl Est Creatinine Clear Calc Drug Dose 90.8 ml/min Estimated GFR () 128.4 Estimated GFR (Non- 110.8 BUN/Creatinine Ratio 27.5 10-20 Random Glucose 94 70-99 mg/dl Calcium Level 8.5 8.5-10.1 mg/dl Phosphorus Level 3.4 2.5-4.9 mg/dl Magnesium Level 1.8 1.8-2.4 mg/dl Vancomycin Level Trough 17.5 SEE COMMENT mcg/ml Microbiology Results 11/16/16 MRSA DNA Surveillance Screen - Final, Complete Specimen Negative for MRSA by DNA Probe
[2016-11-17] MEDS ORDERED: SCOPOLAMINE 1.5 MG TDSY TD SCH (13:45)
[2016-11-17 15:15] VITALS: PULSE 111; O2SAT 92
[2016-11-17 16:01] VITALS: O2SAT 92
[2016-11-17] MEDS: CHECK SCOPOLAMINE PATCH PLACEMENT SCH ×2 (16:16→23:44)
[2016-11-17] MEDS: LORAZEPAM INJ 1 MG in SYRINGE 0.5 ML IV PRN (20:17)
[2016-11-18] MEDS: MoRPHine SULFATE 2 MG/ML CARP IV PRN ×2 (02:22→03:29)
[2016-11-18] MEDS: LORAZEPAM INJ 1 MG in SYRINGE 0.5 ML IV PRN (03:26)
[2016-11-18] MEDS: IPRATROPIUM BROMIDE NEB SOLN 0.02% 2.5 ML VIAL INH SCH ×2 (07:18→11:32)
--- NOTE | 2016-11-25 19:19 | Discharge Summary ---
Discharge Summary Date of Service Nov 25, 2016. Discharge Summary Admission Date: Nov 15, 2016 at 22:40 Discharge Date: Nov 18, 2016 Discharge Disposition: Principal Diagnosis: Metastatic Carcinoma of the Lung. confirmed and pronounce by dry charge process attendant and myself @ 0625 am. Secondary Diagnoses/Problems: Please see H&P and The hospital progress note Admission Information HPI (per Admitting provider): 61 YO male followed by Dr. Lea for FM and Dr. Mike for Medical Oncology. 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 Disease has progressed despite chemotherapy and radiation therapy. Presented to ED 11/10 with lower extremity DVT. Could not be anticoagulated due to brain mets and thrombocytopenia. IVC filter placed. Seen in consultation by Medical Oncology. Functional status poor. No further therapies recommended. Palliative care consultation requested. Discharged to home 11/12/16. Readmitted 11/13/16 due to altered mental status. Head CT unchanged (metastatic disease as before, no hemorrhage or stroke). Possible seizures- started on Keppra. Better today. Patient wished to go home. Discharged to home with home health + anticipated transition to hospice. Brought back to ED this evening because of worsening confusion. In the ED he was noted to be hypoxic and hypotensive. Patient unable to provide any history because of his mental status. 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 Family History FH: CAD (coronary artery disease) MOTHER FH: cancer FATHER (type unknown) Social History Smoking Status: Former Smoker Alcohol Use: yes Drug Use: none Marital Status: single Housing status: lives with family Occupational Status: disabled Immunizations History of Influenza Vaccine: Unknown History of Tetanus Vaccine?: Unknown History of Pneumococcal: Unknown History of Hepatitis B Vaccine: Unknown Multi-Drug Resistant Organisms History of MDRO: No Allergies Coded Allergies: Ibuprofen (Verified Allergy, Unknown, ITCHING - BUT TAKES ASA WITHOUT PROBLEM, 11/13/16) Home Medications Scheduled Carvedilol (Carvedilol), 12.5 MG PO BID Folic Acid ([facility]vs Folic Acid), 800 MCG PO DAILY Levetiractam (Keppra), 250 MG PO BID Lisinopril (Lisinopril), 5 MG PO DAILY Magnesium Oxide (Mag-Ox), 400 MG PO DAILY Simvastatin (Simvastatin), 20 MG PO DAILY Sotalol Hcl (Sotalol Hcl), 80 MG PO BID Tiotropium [place] (Spiriva Handihaler), 1 CAP INH DAILY Scheduled PRN Ipratropium-Albuterol (Combivent Respimat), 1 PUFF INH QID PRN for Wheezing Prochlorperazine Maleate (Prochlorperazine Maleate), 10 MG PO Q6H PRN for Nausea Tramadol HCl (Tramadol HCl), 25 MG PO Q6H PRN for Pain Review of Systems Unable to obtain due to patient's mental status. . Physical Exam Vital Signs Date Time Temp Pulse Resp B/P (MAP) Pulse Ox O2 Delivery O2 Flow Rate FiO2 11/15/16 22:16 92 Nasal Cannula 4.0 11/15/16 21:50 115 32 85/52 86 Nasal Cannula 4.0 11/15/16 21:49 90 Oxymask 15.0 11/15/16 21:49 81 Room Air 11/15/16 21:24 36.5 97 23 88/62 81 Room Air 11/15/16 21:19 98 General Appearance: + moderate distress, + cachetic Head: normocephalic, atraumatic Eyes: PERRL, EOMI, sclerae normal ENT: + pertinent finding (exam limited- patient unable to cooperate) Neck: supple, no adenopathy, thyroid normal, trachea midline Respiratory/Chest: + accessory muscle use, + pertinent finding (scattered rhonchi, diffuse wheezing) Cardiovascular: regular rate, rhythm, no edema, no gallop (none appreciated, but exam limited), no murmur, + JVD, + tachycardia Abdomen/GI: normal bowel sounds, non tender, soft, no organomegaly Extremities/Musculoskelatal: no calf tenderness, no pedal edema Neurologic/Psych: + pertinent finding (exam very limited; confused; moves all 4 extremities) Skin: normal color, warm/dry, no rash Lymphatic: no adenopathy (cervical) Diagnostics Laboratory Results Last 24 Hours Test 11/15/16 23:56 White Blood Count 21.72 K/uL Red Blood Count 2.77 M/uL Hemoglobin 9.6 g/dL Hematocrit 26.9 % Mean Corpuscular Volume 97.1 fL Mean Corpuscular Hemoglobin 34.7 pg Mean Corpuscular Hemoglobin Concent 35.7 g/dl Platelet Count 32 K/uL Neutrophils (%) (Auto) 86.5 % Lymphocytes (%) (Auto) 2.8 % Monocytes (%) (Auto) 9.3 % Eosinophils (%) (Auto) 0.0 % Basophils (%) (Auto) 0.0 % Neutrophils # (Auto) 18.78 K/uL Lymphocytes # (Auto) 0.60 K/uL Monocytes # (Auto) 2.01 K/uL Eosinophils # (Auto) 0.01 K/uL Basophils # (Auto) 0.01 K/uL RDW Standard Deviation 55.2 fL RDW Coefficient of Variation 15.7 % Immature Granulocyte % (Auto) 1.4 % Immature Granulocyte # (Auto) 0.31 K/uL Nucleated RBC Absolute Count (auto) 0.12 K/uL Nucleated Red Blood Cells % 0.5 % Toxic Vacuolation 1+ Platelet Estimate DECREASED Polychromasia 1+ Basophilic Stippling 1+ Sodium Level 129 mmol/L Potassium Level 4.3 mmol/L Chloride Level 93 mmol/L Carbon Dioxide Level 26 mmol/L Anion Gap 10.0 mmol/L Blood Urea Nitrogen 28 mg/dl Creatinine 0.85 mg/dl Estimated GFR () 110.5 Estimated GFR (Non- 95.4 BUN/Creatinine Ratio 32.9 Random Glucose 87 mg/dl Calcium Level 9.0 mg/dl Diagnostic Radiology CT OF THE HEAD WITHOUT CONTRAST FINDINGS: This study is moderately compromised by motion artifact. No acute intracranial hemorrhage, midline shift or mass effect is present. There is bilateral basal ganglia calcification. Ventricular system is stable. Basilar cisterns are patent. Hypodensity within the right cerebellar hemisphere is due to the known metastasis shown on outside head CT of October 31, 2016. Subtle edema within the left frontal lobe shown on prior exams is not well depicted on this study due to motion artifact. Visualized portions of the sinuses and mastoid air cells are clear. No calvarial fractures are identified although sensitivity is diminished on this exam. There is a left temporal craniotomy. IMPRESSION: 1. No acute intracranial hemorrhage. 2. Study compromised by motion artifact. No definite change since prior exam of November 13, 2016. Redemonstration of edema within the right cerebellar hemisphere due to the known metastasis. Electronically signed by: Kemal Siegel M.D. 11/15/2016 10:44 PM Portable chest x-ray reviewed by the undersigned. Difficult to interpret because of poor positioning. Formal interpretation by Radiology pending. . Impression Assessment and Plan POSSIBLE PNEUMONIA Worsening confusion, chest congestion, hypoxia, leukocytosis. Chest x-ray difficult to interpret because of difficulty positioning the patient. Clinically, suspect possible pneumonia, aspiration versus healthcare associated. Treat for suspected pneumonia with IV Zosyn and vancomycin. Supplemental oxygen as necessary. Sepsis protocol not initiated due to terminal illness and conservative plan of management. 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 Progressive disease despite chemotherapy and radiation therapy. Poor functional status. Not a candidate for further therapy. Palliative care recommended by Hematology / Oncology. BRAIN METS Continue steroids. POSSIBLE SEIZURE DISORDER Continue levetiracetam. CAD NTG PRN. CHRONIC LEFT VENTRICULAR SYSTOLIC HEART FAILURE Hold lisinopril due to hypotension. Continue carvedilol with hold parameters. Diurese PRN. VTE PROPHYLAXIS Anticoagulants contraindicated due to INSURANCE BUSINESS ANALYST mets and thrombocytopenia. SCD's contraindicated due to subacute DVT. TEDS have more risk than benefit. RESUSCITATION STATUS Discussed with brother Edilberto who is primary caregiver. Code status now DNR per patient's previously expressed wishes given current circumstances. DISPOSITION Terminally ill. Admit to Oncology Unit. No extraordinary measures per discussion with brother. Discharge disposition to be determined. Terminally and acutely ill. May pass away during this hospital stay. Arrangements for Hospice would be appropriate if his condition permits. . Resuscitation Status DO NOT RESUSCITATE VTE Prophylaxis Risk Level: High Given or contraindicated: Contraindicated <Electronically signed by Adria Montana M.D.> . Physical Exam (per Admitting): General Appearance: + moderate distress, + cachetic Head: normocephalic, atraumatic Eyes: PERRL, EOMI, sclerae normal ENT: + pertinent finding (exam limited- patient unable to cooperate) Neck: supple, no adenopathy, thyroid normal, trachea midline Respiratory/Chest: + accessory muscle use, + pertinent finding (scattered rhonchi, diffuse wheezing) Cardiovascular: regular rate, rhythm, no edema, no gallop (none appreciated , but exam limited), no murmur, + JVD, + tachycardia Abdomen/GI: normal bowel sounds, non tender, soft, no organomegaly Extremities/Musculoskelatal: no calf tenderness, no pedal edema Neurologic/Psych: + pertinent finding (exam very limited; confused; moves all 4 extremities) Skin: normal color, warm/dry, no rash Lymphatic: no adenopathy (cervical) Hospital Course NON Small Cell LUNG CA with Brain and skeletal metastases Progressive disease despite chemotherapy and radiation therapy. Poor functional status and deteriorating rapidly Not a candidate for further therapy. Palliative care recommended by Hematology / Oncology. Discussed with Oncologist this morning Will discuss with brother for transition to Comfort care /[facility] Condition deteriorated overnight No Aggressive treatment ,no blood work and the patient will be put on comfort care only POSSIBLE PNEUMONIA with Severe Sepsis Worsening confusion, chest congestion, hypoxia, leukocytosis. Chest x-ray difficult to interpret because of difficulty positioning the patient. Suspect possible pneumonia, aspiration versus healthcare associated. Started on IV Zosyn and vancomycin. Supplemental oxygen as necessary. Not any better this morning Condition deteriorated Comfort care only BRAIN METS may be complicated by Edema Continue steroids.-stopped POSSIBLE SEIZURE DISORDER Continue levetiracetam.-stopped CAD NTG PRN. CHRONIC LEFT VENTRICULAR SYSTOLIC HEART FAILURE Hold lisinopril due to hypotension. Continue carvedilol with hold parameters. Diurese PRN. VTE PROPHYLAXIS Anticoagulants contraindicated due to INSURANCE BUSINESS ANALYST mets and thrombocytopenia. SCD's contraindicated due to subacute DVT. TEDS have more risk than benefit. RESUSCITATION STATUS Discussed with brother Edilberto who is primary caregiver. Code status now DNR per patient's previously expressed wishes given current circumstances. DISPOSITION Terminally ill. Discharge disposition to be determined. Discussed with the Family members-as above Condition deterioarted As per discussion with the family members yesterday-he will be put on comfort care only Total time spent on discharge = 20 minutes This includes examination of the patient, discharge planning, medication reconciliation, and communication with other providers. Discharge Instructions confirmed and pronounce by dry charge process attendant and myself @ 0625 am. Additional Copies To Rayray Lea M.D.
== END 2016-11-18 06:25 | disposition expired | DRG 871 ==
LOC: EDBD 21:01 → C.EDB 21:02 → C.4E 22:40 → ENRESERV 22:47
PROVIDERS: ADMIT Hospitalist; ATTEND Internal Medicine
DX: A41.9 Sepsis, unspecified organism (principal); C79.31 Secondary malignant neoplasm of brain; J18.9 Pneumonia, unspecified organism; C79.51 Secondary malignant neoplasm of bone; I50.22 Chronic systolic (congestive) heart failure; C34.90 Malignant neoplasm of unspecified part of unspecified bronchus or lung; I11.0 Hypertensive heart disease with heart failure; I25.10 Atherosclerotic heart disease of native coronary artery without angina pectoris; Z95.0 Presence of cardiac pacemaker; I95.9 Hypotension, unspecified; R09.02 Hypoxemia; Z92.3 Personal history of irradiation; Z86.718 Personal history of other venous thrombosis and embolism; Z51.5 Encounter for palliative care; G40.909 Epilepsy, unspecified, not intractable, without status epilepticus; Z66 Do not resuscitate